=== PATIENT | female | born 1960 | race Caucasian/White ===

== ENCOUNTER 2020-04-17 08:00 | Outpatient (REF) | payer OTHER, SELFPAY ==
--- NOTE | ~2020-04-17 | MM_ITS ---
EXAMINATION: MM SCREENING DIGITAL BREAST TOMOSYNTHESIS, BILATERAL CLINICAL INFORMATION: Screening. Asymptomatic. History of left breast atypical hyperplasia. The lifetime risk of breast cancer based on the Tyrer-Cuzick Model is 29.5%. Additional annual screening with breast MRI may be of benefit in women with a Score of 20% or greater. COMPARISON: Mammography: November 24, 2018 and studies dating back to March 03, 2012 TECHNIQUE: Digital breast tomosynthesis is performed in both the craniocaudal and mediolateral oblique views along with computer-aided detection (CAD). Synthesized 2D images are generated from the tomosynthesis. FINDINGS: There are scattered areas of fibroglandular density (ACR BI-RADS breast composition Category b). There are no significant masses, abnormal calcifications, or other abnormalities. MM/MM tomosynthesis screening BI IMPRESSION: There are no significant changes from prior study. ASSESSMENT: BI-RADS 1: Negative RECOMMENDATION: Routine annual mammography screening. This patient's information was entered into a reminder system with a target due date for their next mammogram.
== END 2020-04-17 08:01 | disposition home or self-care (01) ==
LOC: HO.MAMMO 08:00
PROVIDERS: Visit Provider Internal Medicine
DX: Z12.31 Encounter for screening mammogram for malignant neoplasm of breast (principal)
CPT/HCPCS: 77063; 77067

== ENCOUNTER 2020-05-03 10:26 | Outpatient (REF) | payer OTHER, SELFPAY ==
[2020-05-03 12:08] LABS: Free T4 (Free Thyroxine) 1.26 ng/dL (0.71-1.85)
[2020-05-04 06:37] LABS: Triiodothyronine T3 Total 76 ng/dL (76-181)
== END 2020-05-03 10:27 | disposition home or self-care (01) ==
LOC: HO.LAB 10:26
PROVIDERS: PCP Internal Medicine; Visit Provider Internal Medicine Endocrinology, Diabetes & Metabolism
DX: E89.0 Postprocedural hypothyroidism (principal)
CPT/HCPCS: 36415; 84439; 84480

== ENCOUNTER 2020-06-28 07:30 | Outpatient (REF) | payer OTHER, SELFPAY ==
[2020-06-28 08:03] LABS: Hematocrit 40.8 % (37-47); Mean Corpuscular HGB Conc 31.9 g/dl (31.0-35.0); Mean Corpuscular Hemoglobin 30.8 pg (27.0-33.0); Mean Corpuscular Volume 96.7 fL (80-98); Mean Platelet Volume 8.8 fL (9.4-12.3); Platelet Count 294 X10*3/uL (160-400); Red Blood Count 4.22 X10*6/uL (4.20-5.50); Red Cell Distribution Width 12.7 % (11.0-16.0); White Blood Count 6.7 X10*3/uL (4.8-10.8)
[2020-06-28 08:27] LABS: Glucose Urine UA NEG (NEG); Leukocyte Esterase Urine 2+ (NEG); Nitrite Urine NEG (NEG); PH 5.5 (5.0-8.0); Specific Gravity - Urine 1.025 (1.005-1.025); Urine Blood TRACE (NEG); Urine Ketones NEG (NEG); Urine Protein NEG (NEG-TRACE)
[2020-06-28 08:32] LABS: Appearance Urine HAZY; Color Urine YELLOW
[2020-06-28 08:57] LABS: Squamous Epithelial Cell Urine 4+ /LPF
[2020-06-28 08:58] LABS: Bacteria Urine 2+ /LPF; Calcium Oxalate Crystals Urine TRACE /LPF; Renal Epithelial Cells Urine 1+ /LPF
[2020-06-28 09:19] LABS: Alanine Aminotransferase 15 U/L (0-31); Alkaline Phosphatase 77 U/L (39-117); Anion Gap 11 (12-20); Aspartate Amino Transferase 17 U/L (5-31); Bilirubin Total 0.5 mg/dL (0.0-1.0); Blood Urea Nitrogen 26 mg/dL (9-16); Calcium 8.7 mg/dL (8.4-10.2); Carbon Dioxide 29 mmol/L (22-29); Chloride 110 mmol/L (96-108); Cholesterol 228 mg/dL; Estimated Glomerular Filt Rate 60; Glucose Fasting 94 mg/dL (60-99); HDL Cholesterol 63 mg/dL; LDL Cholesterol Calculated 155 mg/dl; Potassium 4.5 mmol/L (3.3-5.1); Sodium 145 mmol/L (135-145); Total Protein 6.5 g/dL (6.5-8.0); Triglycerides 54 mg/dL
== END 2020-06-28 07:31 | disposition home or self-care (01) ==
LOC: HO.LAB 07:30
PROVIDERS: PCP Internal Medicine; Visit Provider Internal Medicine
DX: Z00.00 Encounter for general adult medical examination without abnormal findings (principal); E03.9 Hypothyroidism, unspecified
CPT/HCPCS: 36415; 80053; 80061; 81001; 85027

== ENCOUNTER 2020-07-23 14:30 | Outpatient (REF) | payer OTHER, SELFPAY ==
[2020-07-23 16:26] LABS: Glucose Urine UA NEG (NEG); Leukocyte Esterase Urine TRACE (NEG); Nitrite Urine NEG (NEG); Specific Gravity - Urine >= 1.030 (1.005-1.025); Urine Blood NEG (NEG); Urine Ketones NEG (NEG); Urine Protein NEG (NEG-TRACE)
[2020-07-23 16:27] LABS: Appearance Urine CLEAR; Color Urine YELLOW
[2020-07-23 16:33] LABS: Bacteria Urine 1+ /LPF; Calcium Oxalate Crystals Urine 1+ /LPF; RBC Urine 0 /HPF (0); Squamous Epithelial Cell Urine TRACE /LPF; WBC Urine 0-2 /HPF (0-4)
== END 2020-07-23 14:31 | disposition home or self-care (01) ==
LOC: HO.HMGCLDS 14:30
PROVIDERS: Visit Provider Internal Medicine
DX: Z00.00 Encounter for general adult medical examination without abnormal findings (principal); E03.9 Hypothyroidism, unspecified
CPT/HCPCS: 81001

== ENCOUNTER 2020-10-04 09:56 | Outpatient (REF) | payer OTHER, SELFPAY ==
[2020-10-04 10:48] LABS: Glucose Urine UA NEG (NEG); Leukocyte Esterase Urine TRACE (NEG); Nitrite Urine NEG (NEG); Specific Gravity - Urine 1.015 (1.005-1.025); Urine Blood 3+ (NEG); Urine Ketones NEG (NEG); Urine Protein NEG (NEG-TRACE)
[2020-10-04 10:49] LABS: Color Urine YELLOW
[2020-10-04 10:50] LABS: Appearance Urine HAZY
[2020-10-04 11:04] LABS: Alanine Aminotransferase 12 U/L (0-31); Albumin Level 4.5 g/dL (3.5-5.0); Alkaline Phosphatase 83 U/L (39-117); Anion Gap 14 (12-20); Aspartate Amino Transferase 19 U/L (5-31); Bilirubin Total 0.5 mg/dL (0.0-1.0); Blood Urea Nitrogen 28 mg/dL (9-16); Calcium 9.6 mg/dL (8.4-10.2); Carbon Dioxide 26 mmol/L (22-29); Chloride 101 mmol/L (96-108); Cholesterol 266 mg/dL; Estimated Glomerular Filt Rate 47; Glucose Fasting 91 mg/dL (60-99); HDL Cholesterol 64 mg/dL; LDL Cholesterol Calculated 185 mg/dl; Sodium 137 mmol/L (135-145); Total Protein 7.3 g/dL (6.5-8.0); Triglycerides 87 mg/dL
[2020-10-04 11:08] LABS: Mucus Urine TRACE /LPF; RBC Urine TNTC /HPF (0); Squamous Epithelial Cell Urine 1+ /LPF
== END 2020-10-04 09:57 | disposition home or self-care (01) ==
LOC: HO.LAB 09:56
PROVIDERS: PCP Internal Medicine; Visit Provider Internal Medicine
DX: E03.9 Hypothyroidism, unspecified (principal); E78.5 Hyperlipidemia, unspecified; I10 Essential (primary) hypertension
CPT/HCPCS: 36415; 80048; 80053; 80061; 81001

== ENCOUNTER 2020-10-28 16:51 | Outpatient (REF) | payer OTHER, SELFPAY | END 2020-10-28 16:52 | disposition home or self-care (01) | LOC: HO.LNP 16:51 | PROVIDERS: Visit Provider Internal Medicine | DX: Z20.822 Contact with and (suspected) exposure to COVID-19 (principal); J06.9 Acute upper respiratory infection, unspecified | CPT/HCPCS: U0003; U0005 ==

== ENCOUNTER → 2020-12-29 07:31 | Outpatient (BNVA) | payer OTHER, SELFPAY | PROVIDERS: PCP Internal Medicine; Visit Provider Nurse Practitioner Gerontology ==

== ENCOUNTER 2020-12-29 08:16 | Outpatient (REF) | payer OTHER, SELFPAY ==
[2020-12-29 11:19] LABS: Free T4 (Free Thyroxine) 1.51 ng/dL (0.71-1.85); Thyroid Stimulating Hormone 3.57 uIU/mL (0.32-4.0)
[2020-12-30 22:27] LABS: Triiodothyronine T3 Total 83 ng/dL (76-181)
== END 2020-12-29 08:17 | disposition home or self-care (01) ==
LOC: HO.10HDL 08:16
PROVIDERS: Visit Provider Nurse Practitioner Gerontology
DX: E03.9 Hypothyroidism, unspecified (principal)
CPT/HCPCS: 36415; 84439; 84443; 84480

== ENCOUNTER 2021-03-04 11:59 | Outpatient (REF) | payer OTHER, SELFPAY ==
[2021-03-04 13:01] LABS: Influenza A PCR NEGATIVE (Negative); Influenza B PCR NEGATIVE (Negative); Resp Syncy Virus RNA Qual PCR NEGATIVE (Negative); SARS COV2 PCR INHOUSE NEGATIVE (Negative)
== END 2021-03-04 12:00 | disposition home or self-care (01) ==
LOC: HO.LNP 11:59
PROVIDERS: Visit Provider Nurse Practitioner Family
DX: Z20.822 Contact with and (suspected) exposure to COVID-19 (principal); J01.00 Acute maxillary sinusitis, unspecified
CPT/HCPCS: 0241U

== ENCOUNTER 2021-06-15 10:59 | Outpatient (REF) | payer OTHER, SELFPAY ==
--- NOTE | ~2021-06-15 | XR_ITS ---
EXAMINATION: XR CHEST CLINICAL INFORMATION: Wheezing COMPARISON: 03/09/2019 TECHNIQUE: 2 views of the chest were obtained. FINDINGS: Hyperexpanded lungs. No consolidation, edema, or effusion. No pneumothorax. The cardiomediastinal silhouette is within normal limits. Mild degenerative changes of the spine. XR/XR chest 2V IMPRESSION: Hyperexpanded, clear lungs.
[2021-06-15 12:15] LABS: Hematocrit 43.3 % (37.0-47.0); Hemoglobin 14.2 g/dl (12.0-16.0); Mean Corpuscular HGB Conc 32.8 g/dl (31.0-35.0); Mean Corpuscular Hemoglobin 31.7 pg (27.0-33.0); Mean Corpuscular Volume 96.7 fL (80.0-98.0); Mean Platelet Volume 9.2 fL (9.4-12.3); Platelet Count 353 X10*3/uL (160-400); Red Blood Count 4.48 X10*6/uL (4.20-5.50); Red Cell Distribution Width 12.5 % (11.0-16.0); White Blood Count 8.8 X10*3/uL (4.8-10.8)
[2021-06-15 12:23] LABS: Alanine Aminotransferase 15 U/L (0-31); Albumin Level 4.5 g/dL (3.5-5.0); Alkaline Phosphatase 73 U/L (39-117); Anion Gap 12 (12-20); Aspartate Amino Transferase 17 U/L (5-31); Bilirubin Total 0.5 mg/dL (0.0-1.0); Blood Urea Nitrogen 25 mg/dL (9-16); Calcium 9.5 mg/dL (8.4-10.2); Carbon Dioxide 28 mmol/L (22-29); Chloride 102 mmol/L (96-108); Cholesterol 255 mg/dL; Estimated Glomerular Filt Rate 50; Glucose Fasting 94 mg/dL (60-99); HDL Cholesterol 71 mg/dL; LDL Cholesterol Calculated 172 mg/dl; Potassium 4.3 mmol/L (3.3-5.1); Sodium 138 mmol/L (135-145); Total Protein 7.3 g/dL (6.5-8.0); Triglycerides 63 mg/dL
== END 2021-06-15 11:00 | disposition home or self-care (01) ==
LOC: HO.HMGCX 10:59
PROVIDERS: Visit Provider Internal Medicine
DX: R06.2 Wheezing (principal); I10 Essential (primary) hypertension; E78.5 Hyperlipidemia, unspecified; F17.200 Nicotine dependence, unspecified, uncomplicated
CPT/HCPCS: 36415; 71046; 80053; 80061; 85027

== ENCOUNTER 2021-08-05 08:19 | Outpatient (REF) | payer OTHER, SELFPAY ==
--- NOTE | ~2021-08-05 | US_ITS ---
EXAMINATION: US ABDOMEN COMPLETE CLINICAL INFORMATION: Unspecified abdominal pain. COMPARISON: X-ray abdomen 07/20/2019. CT abdomen and pelvis 12/11/2017. TECHNIQUE: Real-time imaging of the abdominal viscera. FINDINGS: PANCREAS: Normal. ABDOMINAL AORTA: The proximal, mid, and distal segments are normal in caliber. INFERIOR VENA CAVA: Visualized portions are normal. LIVER: The liver is normal in size. The liver contour is normal. Parenchymal echogenicity is normal. No focal hepatic lesion. Images submitted show some possible intrahepatic ductal dilatation of uncertain etiology. GALLBLADDER: Gallstones are noted The gallbladder is physiologically distended. Multiple mobile gallstones are present. No evidence of gallbladder wall thickening or pericholecystic fluid. COMMON BILE DUCT: Normal in caliber measuring 0.6 cm in diameter. RIGHT KIDNEY: There is no hydronephrosis on the right. The cortex is increased in echogenicity equal to that of liver. Multiple echogenic foci most consistent with nonobstructing calculi are noted. Several areas of probable cystic change are seen. There is no convincing evidence for a solid lesion on the imaging submitted. No hydronephrosis. The kidney measures 9.1 cm in maximum dimension. LEFT KIDNEY: Again as on the contralateral side, multiple echogenic foci are seen most consistent with nonobstructing calculi. There is no convincing evidence for hydronephrosis. Several areas of cystic change are seen here. No evidence for a solid lesion on the imaging submitted. No hydronephrosis. The kidney measures 10.0 cm in maximum dimension. SPLEEN: Calcifications within the spleen. The spleen measures 7.8 cm in maximum dimension. FREE FLUID: None. US/US abdomen complete IMPRESSION: Findings suggest an element of intrahepatic ductal dilatation of uncertain etiology. There is cholelithiasis here. No convincing evidence for cholecystitis. Consider MR/MRCP to further evaluate. Numerous areas of nonobstructing calculi in the kidneys are noted bilaterally and some cystic change is seen. There is no hydronephrosis. No convincing evidence for a solid lesion. The cortex of the kidneys appears increased in echogenicity bilaterally. This may be consistent with an element of medical renal disease. Correlation recommended.
== END 2021-08-05 08:20 | disposition home or self-care (01) ==
LOC: HO.HMGCX 08:19
PROVIDERS: Visit Provider Internal Medicine
DX: R10.9 Unspecified abdominal pain (principal)
CPT/HCPCS: 76700

== ENCOUNTER 2021-09-17 09:17 | Outpatient (REF) | payer OTHER, SELFPAY ==
[2021-09-17 11:22] LABS: MANUAL DIFF FLAG NO
[2021-09-17 11:33] LABS: Basophils Percent Auto 0.5 % (0-2); Eosinophils Absolute Auto 0.3 X10*3/uL (0.0-0.4); Eosinophils Percent Auto 5.3 % (0-4); Hematocrit 38.9 % (37.0-47.0); Hemoglobin 12.9 g/dl (12.0-16.0); Imm Gran Abs Auto 0.01 X10*3/uL (0.00-0.03); Imm Gran Pct Auto 0.2 % (0.0-0.4); Lymphocytes Absolute Auto 1.4 X10*3/uL (1.2-4.9); Mean Corpuscular HGB Conc 33.2 g/dl (31.0-35.0); Mean Corpuscular Hemoglobin 31.4 pg (27.0-33.0); Mean Corpuscular Volume 94.6 fL (80.0-98.0); Mean Platelet Volume 9.3 fL (9.4-12.3); Monocytes Absolute Auto 0.6 X10*3/uL (0.1-1.2); Monocytes Percent Auto 10.9 % (2-11); Neutrophils Absolute Auto 3.5 x10*3/uL (2.0-8.3); Neutrophils Percent Auto 59.1 % (45-73); Platelet Count 332 X10*3/uL (160-400); Red Blood Count 4.11 X10*6/uL (4.20-5.50); Red Cell Distribution Width 12.8 % (11.0-16.0); White Blood Count 5.9 X10*3/uL (4.8-10.8)
[2021-09-17 12:08] LABS: Alanine Aminotransferase 28 U/L (0-31); Albumin Level 4.2 g/dL (3.5-5.0); Alkaline Phosphatase 98 U/L (39-117); Anion Gap 12 (12-20); Aspartate Amino Transferase 28 U/L (5-31); Bilirubin Total 0.6 mg/dL (0.0-1.0); Blood Urea Nitrogen 20 mg/dL (9-16); Calcium 9.2 mg/dL (8.4-10.2); Carbon Dioxide 26 mmol/L (22-29); Chloride 107 mmol/L (96-108); Cholesterol 150 mg/dL; Estimated Glomerular Filt Rate 54; Glucose Fasting 93 mg/dL (60-99); HDL Cholesterol 60 mg/dL; Iron 111 mcg/dL (30-160); LDL Cholesterol Calculated 78 mg/dl; Percent Iron Saturation 35 % (15-50); Sodium 141 mmol/L (135-145); Total Iron Binding Capacity 321 mcg/dL (228-428); Total Protein 6.7 g/dL (6.5-8.0); Triglycerides 60 mg/dL; Unsaturated Iron Binding 210 ug/dL
[2021-09-17 12:15] LABS: TSH reflex Free T4 2.31 uIU/mL (0.32-4.0)
== END 2021-09-17 09:18 | disposition home or self-care (01) ==
LOC: HO.HMGCLDS 09:17
PROVIDERS: PCP Internal Medicine; Visit Provider Internal Medicine
DX: E78.5 Hyperlipidemia, unspecified (principal); I10 Essential (primary) hypertension; I21.9 Acute myocardial infarction, unspecified
CPT/HCPCS: 36415; 80053; 80061; 83540; 84443; 85025

== ENCOUNTER 2021-09-25 07:43 | Outpatient (REF) | payer OTHER, SELFPAY ==
--- NOTE | 2021-09-25 13:10 | PFT_ITS ---
Forced vital capacity 94%, FEV1 of 53%, FEV1/FVC ratio is 44. MHI28-60 is 15% and MVV is 47%. Post bronchodilator therapy, there was no significant change. Total lung capacity 106% and residual volume 128%. Diffusion capacity 55%. CONCLUSION: Severe obstructive airway disorder. No response to bronchodilator therapy. Clinical correlation is recommended. MD LEONIDES Crow/MODL / [id number]
== END 2021-09-25 07:44 | disposition home or self-care (01) ==
LOC: HO.RESP 07:43
PROVIDERS: PCP Internal Medicine; Visit Provider Internal Medicine
DX: R06.2 Wheezing (principal)
CPT/HCPCS: 94060; 94727; 94729

== ENCOUNTER 2021-09-25 16:33 | Outpatient (REF) | payer OTHER, SELFPAY ==
--- NOTE | ~2021-09-25 | XR_ITS ---
EXAMINATION: XR SACRUM AND COCCYX CLINICAL INFORMATION: disorder of sacrum and coccyx COMPARISON: CT scan abdomen pelvis 10/30/2015 TECHNIQUE: 3 views FINDINGS: No fracture or bone destruction of the sacrum and coccyx. Degenerative change of both the right and left sacroiliac joints of subchondral osteosclerosis and vacuum changes of the sacroiliac joints. No bony ankylosis. There is a grade 1 anterolisthesis of L5 on S1 due to facet joint disease. No spondylolysis. XR/XR sacrum coccyx min 2V IMPRESSION: No acute abnormality. Degenerative change of sacroiliac joints. Grade 1 anterolisthesis of L5 on S1.
== END 2021-09-25 16:34 | disposition home or self-care (01) ==
LOC: HO.HMGCX 16:33
PROVIDERS: PCP Internal Medicine
DX: M53.3 Sacrococcygeal disorders, not elsewhere classified (principal)
CPT/HCPCS: 72220

== ENCOUNTER 2022-05-01 12:56 | Outpatient (REF) | payer OTHER, SELFPAY ==
--- NOTE | ~2022-05-01 | XR_ITS ---
EXAMINATION: XR SHOULDER, RIGHT CLINICAL INFORMATION: Reason for Exam S43.401A - Unspecified sprain of right shoulder joint, initial encounter COMPARISON: None TECHNIQUE: Three views of the shoulder. FINDINGS: No acute fracture or dislocation. Moderate degenerative changes of the shoulder with degenerative spurring of the acromion clavicular joint with loss of glenohumeral joint space with subchondral change.. Soft tissues are unremarkable. XR/XR shoulder RT min 2V IMPRESSION: * Moderate degenerative changes of the shoulder.
== END 2022-05-01 12:57 | disposition home or self-care (01) ==
LOC: HO.HMGCX 12:56
PROVIDERS: PCP Internal Medicine; Visit Provider Internal Medicine
DX: S43.401A Unspecified sprain of right shoulder joint, initial encounter (principal)
CPT/HCPCS: 73030

== ENCOUNTER 2022-09-07 09:15 | Outpatient (REF) | payer OTHER, SELFPAY ==
[2022-09-07 11:27] LABS: MANUAL DIFF FLAG NO
[2022-09-07 11:39] LABS: Basophils Percent Auto 0.5 % (0-2); Eosinophils Absolute Auto 0.4 X10*3/uL (0.0-0.4); Eosinophils Percent Auto 6.7 % (0-4); Hematocrit 39.6 % (37.0-47.0); Imm Gran Abs Auto 0.01 X10*3/uL (0.00-0.03); Imm Gran Pct Auto 0.2 % (0.0-0.4); Lymphocytes Absolute Auto 1.6 X10*3/uL (1.2-4.9); Lymphocytes Percent Auto 27.7 % (20-40); Mean Corpuscular HGB Conc 32.8 g/dl (31.0-35.0); Mean Corpuscular Hemoglobin 31.6 pg (27.0-33.0); Mean Corpuscular Volume 96.1 fL (80.0-98.0); Mean Platelet Volume 9.5 fL (9.4-12.3); Monocytes Absolute Auto 0.5 X10*3/uL (0.1-1.2); Monocytes Percent Auto 9.3 % (2-11); Neutrophils Absolute Auto 3.2 x10*3/uL (2.0-8.3); Neutrophils Percent Auto 55.6 % (45-73); Platelet Count 254 X10*3/uL (160-400); Red Blood Count 4.12 X10*6/uL (4.20-5.50); Red Cell Distribution Width 12.7 % (11.0-16.0); White Blood Count 5.8 X10*3/uL (4.8-10.8)
[2022-09-07 12:24] LABS: Alanine Aminotransferase 24 U/L (0-31); Albumin Level 3.9 g/dL (3.5-5.0); Alkaline Phosphatase 78 U/L (39-117); Anion Gap 14 (12-20); Aspartate Amino Transferase 29 U/L (5-31); Bilirubin Total 0.6 mg/dL (0.0-1.0); Blood Urea Nitrogen 27 mg/dL (9-16); Calcium 9.1 mg/dL (8.4-10.2); Carbon Dioxide 23 mmol/L (22-29); Chloride 111 mmol/L (96-108); Cholesterol 137 mg/dL; Estimated Glomerular Filt Rate > 60; Glucose Fasting 89 mg/dL (60-99); HDL Cholesterol 59 mg/dL; LDL Cholesterol Calculated 69 mg/dl; Potassium 3.6 mmol/L (3.3-5.1); Sodium 144 mmol/L (135-145); Total Protein 6.4 g/dL (6.5-8.0); Triglycerides 47 mg/dL
[2022-09-07 12:27] LABS: TSH reflex Free T4 2.43 uIU/mL (0.32-4.0); Vitamin D 25-OH Total 35.4 ng/mL (>30)
[2022-09-08 16:29] LABS: Calcium (PTHI) 8.7 mg/dL (8.6-10.4); PTHI 46 pg/mL (16-77)
== END 2022-09-07 09:16 | disposition home or self-care (01) ==
LOC: HO.HMGCLDS 09:15
PROVIDERS: PCP Internal Medicine; Visit Provider Internal Medicine
DX: Z00.00 Encounter for general adult medical examination without abnormal findings (principal); N20.0 Calculus of kidney; E78.5 Hyperlipidemia, unspecified; E55.9 Vitamin D deficiency, unspecified; I10 Essential (primary) hypertension
CPT/HCPCS: 36415; 80053; 80061; 82306; 83970; 84443; 85025

== ENCOUNTER 2022-11-03 09:00 | Outpatient (RCR) | payer OTHER, SELFPAY ==
--- NOTE | 2022-11-01 09:50 | MHC.PT.EP ---
[facility] [place] Office [place] Office [place] Office [address] [phone] F: [phone] F: [phone] F: [phone] F: [phone] Physical Therapy Plan of Care Date of Evaluation: Date of Surgery: Diagnosis: cervicalgia Assessment: 62 y/o LHD female referred to PT with cervicalgia resulting in pain with holding grandchild, reaching overhead, computer work, and sitting with poor posture. Examination shows decreased cervical rotation and shoulder flexion, decreased scapular strength, increased TTP upper traps, and impaired postural awareness. REcommend PT 2x/week for 4 weeks to address impairments, implement HEP, and optimize functional mobility. Frequency and Duration: The patient will be seen 2x/week for 4 weeks Short Term Goals: 3 weeks Compliant with HEP I with use of lumbar roll in sitting Residential Goals: 5 weeks I with HEP and self management of sx Pt will be able to hold grandchild > 30 min with pain < 3/10 Pt will be able to reach into overhead cabinets with pain < 3/10 Demonstrate B 4/5 scapular strength to facilitate lifting Treatment Plan: Modalities to reduce pain, spasms and effusion. Manual therapy to restore motion and function. Therapeutic exercise to improve strength and flexibility. Neuromuscular re-education for posture and balance. Therapeutic activities to return to functional activities of daily living. Electronically signed by: Tereza Tavera PT Please sign and return to therapist. Thank you for your referral.
--- NOTE | 2022-12-09 14:49 | MHC.PT.DC ---
[facility] [place] Office [place] Office [place] Office [address] [place] [phone] F: [phone] F: [phone] F: [phone] F: [phone] Physical Therapy Discharge Report Diagnosis: cervicalgia Date of Surgery: Date of Evaluation: 11/01/22 Date of Discharge: 12/09/22 Treatments to Date: 2 Cancellations to Date: 5 No Shows to Date: 1 Discharge Status: Recommend MD Follow-up Discharge Summary: Pt with poor attendance and at this time is d/c from PT. Electronically signed by: Tereza Tavera PT Please sign and return to therapist. Thank you for your referral.
== END 2022-12-09 14:50 | disposition home or self-care (01) ==
LOC: HO.PTCHIC 09:00
PROVIDERS: PCP Internal Medicine; Visit Provider Internal Medicine
DX: M54.2 Cervicalgia (principal)
CPT/HCPCS: 97110; 97140; 97162

== ENCOUNTER 2022-12-16 10:12 | Emergency (ER) | payer OTHER, SELFPAY ==
[2022-12-16 10:18] VITALS: BP 157/77; PULSE 72; RESP 16; TEMP 36.6; O2SAT 96; BMI 25.8
--- NOTE | 2022-12-16 10:24 | PC.NURSE ---
alert and oriented, respirations even and unlabored. seen recently at [facility] for abdominal pain/cramping. covid +, stating her discomfort has not gone away. has been feeling increasingly weak over past week, reporting cough since last tuesday
--- NOTE | 2022-12-16 10:48 | ED.GENADULT ---
HPI - General Adult General Chief complaint: Abdominal Pain Stated complaint: +COVID,NAUSEA,WEAK,REAL PER EMS Time Seen by Provider: 12/16/22 10:31 Source: patient Limitations: no limitations History of Present Illness HPI narrative: This is a 62 years old female patient presented to the emergency department complaining of nausea weakness malaise. She states she has been feeling this for about a day she went to [facility] on Tuesday she was diagnosed with COVID the end really stoma. Denies any vomiting any fever she does complaining of nausea Onset (ago): day(s) (8) Radiation: non-radiation Severity: mild Pain Consistency: constant Relieving factors: none Exacerbating factors: none Related Data Home Medications Medication Instructions Recorded Confirmed aspirin 81 mg tablet,delayed 81 mg PO DAILY 07/14/21 08/18/22 release Previous Rx's Medication Instructions Recorded cyclobenzaprine 10 mg tablet 10 mg PO BEDTIME #14 tabs 05/01/22 meloxicam 15 mg tablet 15 mg PO DAILY #14 tabs 05/01/22 Levoxyl 75 mcg tablet 75 mcg PO DAILY #90 tabs 08/18/22 (levothyroxine) atorvastatin 80 mg tablet 80 mg PO BEDTIME #90 tabs 08/18/22 metoprolol succinate 25 mg 25 mg PO DAILY #90 tabs 08/18/22 tablet,extended release 24 hr nicotine 21 mg/24 hr daily 1 patch transdermal DAILY #28 ea 08/18/22 transdermal patch (Nicoderm CQ) mometasone-formoterol HFA 100 2 puff inhalation BID #13 grams 10/12/22 mcg-5 mcg/actuation aerosol inhaler (Dulera) ondansetron HCl 4 mg tablet 4 mg PO Q8H PRN nausea and 12/16/22 vomiting 4 days #12 tabs Allergies Allergy/AdvReac Type Severity Reaction Status Date / Time No Known Allergies Allergy Verified 08/18/22 08:35 Review of Systems Constitutional: Constitutional: Reports no additional constitutional complaints Cardiovascular: Cardiovascular: Reports no additional cardiovascular complaints PMFSH Past Medical History Medical History Abdominal pain [place] (myocardial infarction) Tobacco dependence Wheezing Hyperlipemia HTN (hypertension) Annual physical exam Hypothyroid Hematuria Anxiety COPD (chronic obstructive pulmonary disease) Hyperthyroidism Surgical History Hx of appendectomy H/O tubal ligation H/O thyroidectomy Family History Family History Father No problems noted. Mother CVD (cardiovascular disease) Social History Social History Housing: House Alcohol intake: never Patient Tobacco Use Status: Former Tobacco user (1 year) Smoked in Last 30 Days: Yes e-Cigarette/Vaping Use: Never Used Use of substances other than those prescribed or required for medical reasons: No Advance Directives: No Advance Directives Information Provided: Yes Current occupational status: employed Cognitive needs: No Hearing needs: No Vision needs: Yes Physical Exam ED Vital Signs: Vital Signs - 24 hr 12/16/22 10:18 12/16/22 12:55 Temperature 97.9 F 98.1 F Pulse Rate 72 68 Respiratory Rate 16 16 Blood Pressure 157/77 H 127/78 Pulse Oximetry 96 99 Oxygen Delivery Method Room Air Room Air BMI result Body Mass Index 25.8 Const General: cooperative Nutritional Appearance: well nourished Orientation/consciousness: patient oriented x3 Limitations: no limitations HENMT Head: Yes normal to inspection General nose exam: Normal external nose present Face and sinus: Yes normal facial exam Neck Neck: Yes normal visual inspection Chest Chest palpation & inspection: normal inspection of the chest Resp Effort & Inspection: normal respiratory effort Auscultation: clear to auscultation bilaterally Cardio Rate: regular rate Rhythm: regular rhythm GI Inspection: Yes normal to inspection Palpation (GI): Soft to palpation, not firm and nontender Auscultation: normal bowel sounds Skin General skin exam: no rashes or lesions noted Lesions: no lesions Rashes: no rashes Neuro General: patient oriented x3 Cranial nerves: Yes CN's II-XII intact bilaterally Cognition (Neuro): normal cognition Motor exam (neuro): 5/5 motor strength present throughout Course Reevaluation(s) Reevaluation #1: feels better labs OK ,CXR no acute disease,will d/c home,she is oxygenating well Time: 12:26 Medications Administered Discontinued Medications Generic Name Dose Route Start Last Admin Trade Name Freq PRN Reason Stop Dose Admin Sodium Chloride 1,000 mls @ 999 mls/hr 12/16/22 10:45 12/16/22 10:58 Ns IVCONT 12/16/22 11:45 999 mls/hr .Q1H1M RAKEL Administration Ondansetron HCl 4 mg 12/16/22 10:48 12/16/22 10:57 Ondansetron Hcl 4 Mg/2 Ml Vial IVPUSH 12/16/22 10:49 4 mg ONCE ONE Administration Medical Decision Making Medical Decision Making [facility] Narrative: Patient presented with generalized weakness nausea malaise diagnosed recently with COVID the this symptoms may be related to that, will get anywhere labs IV fluids symptomatic treatment and reassess Differential Diagnosis Differential Diagnoses: The differential diagnosis associated with the presentation includes Pneumonia/dehydration Admission/Observation Consideration of admission/observation: Escalation of care including admission/observation considered Lab Data 12/16/22 10:55 12/16/22 10:55 Labs: Lab Results 12/16/22 Range/Units 10:55 WBC 9.8 (4.8-10.8) X10*3/uL RBC 4.61 (4.20-5.50) X10*6/uL Hgb 14.7 (12.0-16.0) g/dl Hct 42.7 (37.0-47.0) % MCV 92.6 (80.0-98.0) fL MCH 31.9 (27.0-33.0) pg MCHC 34.4 (31.0-35.0) g/dl RDW 12.4 (11.0-16.0) % Plt Count 344 D (160-400) X10*3/uL MPV 8.9 L (9.4-12.3) fL Immature Gran % (Auto) 0.3 (0.0-0.4) % Neut % (Auto) 76.8 H (45-73) % Lymph % (Auto) 14.6 L (20-40) % Mccormick % (Auto) 6.6 (2-11) % Eos % (Auto) 1.4 (0-4) % Baso % (Auto) 0.3 (0-2) % Lymph # (Auto) 1.4 (1.2-4.9) X10*3/uL Mccormick # (Auto) 0.7 (0.1-1.2) X10*3/uL Eos # (Auto) 0.1 (0.0-0.4) X10*3/uL Baso # (Auto) 0.0 (0.0-0.2) X10*3/uL Abs Immat Gran (auto) 0.03 (0.00-0.03) X10*3/uL Absolute Neuts (auto) 7.6 (2.0-8.3) x10*3/uL Absolute Nucleated RBC 0.000 (0.0-0.012) X10*3/uL Nucleated RBC % (auto) 0.0 (0.0-0.2) /100WBC Sodium 142 (135-145) mmol/L Potassium 4.0 (3.3-5.1) mmol/L Chloride 103 (96-108) mmol/L Carbon Dioxide 26 (22-29) mmol/L Anion Gap 17 (12-20) BUN 21 H (9-16) mg/dL Creatinine 0.95 (0.5-1.4) mg/dL Estim Creat Clear Calc 46.3 Estimated GFR 59 Random Glucose 88 (60-115) mg/dL Calcium 9.5 (8.4-10.2) mg/dL Total Bilirubin 0.4 (0.0-1.0) mg/dL AST 22 (5-31) U/L ALT 16 (0-31) U/L Alkaline Phosphatase 87 (39-117) U/L Troponin I High Sens 3.3 (<3.5-17.0) ng/L Total Protein 7.4 (6.5-8.0) g/dL Albumin 4.2 (3.5-5.0) g/dL Independent Interpretation I performed an independent interpretation of an: Plain X-Ray Interpretation: no pneumonia Radiology Impression Discussion of test interpretation with radiology: I have reviewed the radiologist's reading. Radiologist Impression: normal cxr Prescription Management I considered prescription management with: Other (zofran) Social Determinants COPD Discharge Plan Discharge Clinical Impression: Weakness, Nausea, COVID-19 Patient Disposition: Home, Self-Care Instructions: COVID-19 (Coronavirus Disease 2019) (ED) Additional Instructions: Follow-up with your primary care physician: Make an appointment ; return if you are worse Prescriptions: New ondansetron HCl 4 mg tablet 4 mg PO Q8H PRN (Reason: nausea and vomiting) 4 Days Qty: 12 0RF No Action Dulera 100-5 mcg/actuation HFA aerosol inhaler 2 puff inhalation BID Qty: 13 3RF aspirin 81 mg tablet,delayed release (DR/EC) 81 mg PO DAILY meloxicam 15 mg tablet 15 mg PO DAILY Qty: 14 0RF cyclobenzaprine 10 mg tablet 10 mg PO BEDTIME Qty: 14 0RF atorvastatin 80 mg tablet 80 mg PO BEDTIME Qty: 90 3RF levothyroxine [Levoxyl] 75 mcg tablet 75 mcg PO DAILY Qty: 90 3RF Rx Instructions: DIANA - no substitutions Brand name medically necessary metoprolol succinate 25 mg tablet extended release 24 hr 25 mg PO DAILY Qty: 90 3RF nicotine [Nicoderm CQ] 21 mg/24 hr patch 24 hour 1 patch transdermal DAILY Qty: 28 5RF Referrals: Sharda Stevenson MD [Primary Care Provider] - 2 days Interventions: ED Discharge Assessment Last Done: 12/16/22 13:10 Discharge Date/Time: 12/16/22 13:11
[2022-12-16 12:55] VITALS: BP 127/78; PULSE 68; RESP 16; TEMP 36.7; O2SAT 99
== END 2022-12-16 13:11 | disposition home or self-care (01) ==
PROVIDERS: Emergency Provider Emergency Medicine; PCP Internal Medicine
DX: U07.1 COVID-19 (principal); R11.0 Nausea; R53.1 Weakness; E78.5 Hyperlipidemia, unspecified; I10 Essential (primary) hypertension; I25.2 Old myocardial infarction; Z87.891 Personal history of nicotine dependence; Z79.899 Other long term (current) drug therapy; Z79.82 Long term (current) use of aspirin
CPT/HCPCS: 36415; 71045; 80053; 84484; 85025; 96374; 99284; J2405

== ENCOUNTER 2023-01-04 14:53 | Outpatient (AMB) | payer OTHER, SELFPAY ==
[2023-01-04 15:51] VITALS: BP 130/80; PULSE 79; TEMP 36.6; O2SAT 95; BMI 24.9
--- NOTE | 2023-01-04 15:51 | AM.OFFWIN_ITS ---
Intake Vital Signs 01/04/23 15:51 Height 4 ft 11 in Weight 123 lb 6 oz BMI 24.9 BP 130/80 Blood Pressure Location Lt brachial Position Sitting Pulse 79 Pulse Source Pulse Oximeter Temp 97.9 F Temp Source Temporal Artery Scan Pulse Oximetry (%) 95 Oxygen Delivery Method Room Air Intake Visit Reasons: EST/right side pain(lobby) Intake Note: pt is here for c/o right side pain for a few months Patient Tobacco Use Status: Former Tobacco user (1 year) Allergies No Known Allergies Allergy (Verified 01/04/23 16:11) Medication List - Last Reconciled 01/04/23 by Oneal Fung MD aspirin 81 mg PO DAILY atorvastatin 80 mg PO BEDTIME Levoxyl (levothyroxine) 75 mcg PO DAILY NS meloxicam 15 mg PO DAILY metoprolol succinate ER 50 mg PO DAILY mometasone-formoterol 100-5 mcg/actuation (Dulera) 2 puffs inhalation BID nicotine (Nicoderm CQ) 1 patch transdermal DAILY ondansetron HCl 4 mg PO Q8H PRN 4 days Do you need a note to return to daycare/school/sports/work: Yes HPI EST/right side pain(lobby) HPI Details 62-year-old female presents to [facility] for a sick visit. Patient is complaining of pain in the right lower back radiating to the front of the stomach. Symptoms are episodic and causes nausea. She has been diagnosed with kidney stones in the past. She was seen at the urologist who told her that it is a nonobstructing stone. Patient is wondering about other causes of her pain. Does not report any increase in frequency of urination, vomiting or diarrhea. [facility] Medical History Abdominal pain [place] (myocardial infarction) Tobacco dependence Wheezing Hyperlipemia HTN (hypertension) Annual physical exam Hypothyroid Hematuria Anxiety COPD (chronic obstructive pulmonary disease) Hyperthyroidism Surgical History Hx of appendectomy H/O tubal ligation H/O thyroidectomy Family History Father No problems noted. Mother CVD (cardiovascular disease) Social History Housing: House Alcohol intake: never Patient Tobacco Use Status: Former Tobacco user (1 year) e-Cigarette/Vaping Use: Never Used Current occupational status: employed Cognitive needs: No Hearing needs: No Vision needs: Yes Physical Exam Vital Signs: Last Vital Signs Temp 97.9 F 01/04/23 15:51 Pulse 79 01/04/23 15:51 BP 130/80 01/04/23 15:51 Pulse Ox 95 01/04/23 15:51 Oxygen Delivery Method Room Air 01/04/23 15:51 BMI result Body Mass Index 24.9 Const General: cooperative and healthy appearing Nutritional Appearance: well nourished Orientation/consciousness: patient oriented x3 Limitations: no limitations HEENT Head: Yes normal to inspection Eyes General: appearance normal, both eyes and all related structures Neck Neck: Yes normal visual inspection Chest Chest palpation & inspection: normal palpation of entire chest wall Resp Effort & Inspection: normal respiratory effort Back/Spine/Pelvis Other: No spinal tenderness. Neuro General: patient oriented x3 Results AMB Urinalysis, Automated UA Leukoctes 15 Domingo/uL Last Edit by Ozzie Price CMA on 01/04/23 16:23 UA Nitrite Negative Last Edit by Ozzie Price CMA on 01/04/23 16:23 UA Urobilinogen 0.2 mg/dL Last Edit by Ozzie Price CMA on 01/04/23 16 :23 UA Protein 30 mg/dL Last Edit by Ozzie Price CMA on 01/04/23 16:23 UA pH 6.0 Last Edit by Ozzie Price CMA on 01/04/23 16:23 UA Blood 200 Ciaran/uL Last Edit by Ozzie Price CMA on 01/04/23 16:23 UA Specific Empire 1.030 Last Edit by Ozzie Price CMA on 01/04/23 16:23 UA Ketone Positive Last Edit by Ozzie Price CMA on 01/04/23 16:23 UA Bilirubin 1 mg/dL Last Edit by Ozzie Price CMA on 01/04/23 16:23 UA Glucose 0 mg/dL Last Edit by Ozzie Price CMA on 01/04/23 16:23 Assessment & Plan Assessment & Plan (1) Low back pain: Code(s): M54.50 - Low back pain, unspecified Plan: Patient was advised rest. Note for work if necessary provided. If symptoms worsen to follow-up here. Urinalysis was positive for blood and leukocytes. Possibility of a kidney stone still exist. Meloxicam and Bactrim also called in. If symptoms not better to follow-up here. Orders: Orders AMB Urinalysis Automated Today Z13.9 - Encounter for screening, unspecified Medications: New sulfamethoxazole-trimethoprim 800-160 mg (Bactrim DS) 1 tab PO BID 14 tabs 0RF 7 days Refilled meloxicam 15 mg PO DAILY 14 tabs 0RF Coding Level of Care Code Est Pt Level 4 (67545) Diagnoses Low back pain M54.50
== END 2023-01-04 16:42 | disposition home or self-care (01) ==
PROVIDERS: PCP Internal Medicine; Visit Provider Internal Medicine
DX: M54.50 Low back pain, unspecified (principal)
CPT/HCPCS: 81003; 99214

== ENCOUNTER 2023-01-14 10:42 | Outpatient (AMB) | payer OTHER, SELFPAY ==
[2023-01-14 10:50] VITALS: BP 120/74; PULSE 75; O2SAT 99; BMI 24.2
--- NOTE | 2023-01-14 10:50 | MHC.PC.OV ---
Vital Signs 01/14/23 10:50 Height 4 ft 11 in Weight 120 lb BMI 24.2 BP 120/74 Blood Pressure Location Lt brachial Position Sitting Pulse 75 Pulse Source Pulse Oximeter Pulse Oximetry (%) 99 Oxygen Delivery Method Room Air Intake Visit Reasons: Abdomen Pains Intake Note: Pt is here today for a follow up visit. Pt states that she was in [facility] and she was also at [facility] [place], [place] for covid. Allergies No Known Allergies Allergy (Verified 01/14/23 10:54) Medication List - Last Reconciled 01/14/23 by Sharda Stevenson MD aspirin 81 mg PO DAILY atorvastatin 80 mg PO BEDTIME Levoxyl (levothyroxine) 75 mcg PO DAILY NS metoprolol succinate ER 50 mg PO DAILY mometasone-formoterol 100-5 mcg/actuation (Dulera) 2 puffs inhalation BID nicotine (Nicoderm CQ) 1 patch transdermal DAILY umeclidinium-vilanterol 62.5-25 mcg/actuation (Anoro Ellipta) 1 inh inhalation DAILY Tobacco use date assessed: 01/14/23 Dental Screening Dental Screen Date: 01/14/23 Did you have a dental visit in the last 12 months?: Yes Did you have a dental problem in the last 6 months where you did not have access to dental care?: No Was dental information given to patient?: Patient has dentist HPI Abdomen Pains HPI Details Pt c/o increased SOB, wheezing since started Dulera and needs to use Albuterol more often. Patient has been well controlled on Anoro which was changed to Dulera because of insurance requirement to try Dulera first. Hypertension hypothyroidism and hyperlipidemia are controlled on current medications. [facility] Medical History Abdominal pain CT (myocardial infarction) Tobacco dependence Wheezing Hyperlipemia HTN (hypertension) Annual physical exam Hypothyroid Hematuria Anxiety COPD (chronic obstructive pulmonary disease) Hyperthyroidism Surgical History Hx of appendectomy H/O tubal ligation H/O thyroidectomy Family History Father No problems noted. Mother CVD (cardiovascular disease) Social History Housing: House Alcohol intake: never Patient Tobacco Use Status: Former Tobacco user e-Cigarette/Vaping Use: Never Used Current occupational status: employed Cognitive needs: No Hearing needs: No Vision needs: Yes Questionnaire Thrive Questionnaire Date Thrive assessed: 06/15/21 AUDIT C Alcohol Use Questionnaire (AUDIT-C) 1. How often do you have a drink containing alcohol?: Monthly or less 2. How many drinks containing alcohol do you have on a typical day when you are drinking?: 1 or 2 3. How often do you have six or more drinks on one occasion?: Never Total Score: 1 GÓMEZ-7 AMB Questionnaire GÓMEZ-7 Date GÓMEZ - 7 assessed: 08/18/22 Source: Developed by Drs. Alen Prajapati, Shikha Gordon, Melquiades Rivers and colleagues, with an educational dhaval from [email or web address]. Review of Systems Const All systems reviewed & are unremarkable except as noted in HPI and below Eyes Reports no additional complaints ENT Reports no additional complaints Card Reports no additional complaints GI Reports no additional complaints Reports no additional complaints Physical exam (Primary Care) Vital Signs: Last Vital Signs Pulse 75 01/14/23 10:50 BP 120/74 01/14/23 10:50 Pulse Ox 99 01/14/23 10:50 Oxygen Delivery Method Room Air 01/14/23 10:50 BMI result Body Mass Index 24.2 Tobacco/Smoking Status: Tobacco use Status Tobacco use date assessed 01/14/23 01/14/23 10:57 Patient Tobacco Use Status Former Tobacco user 01/14/23 10:57 Tobacco use type 07/14/21 10:20 e-Cigarette/Vaping Use Never Used 01/14/23 10:53 Thrive Assessment: Date of Thrive Assessment Date Thrive assessed 06/15/21 01/14/23 10:53 Const General: no acute distress HENMT Head: Yes normal to inspection Ears: hearing grossly normal bilaterally Resp Effort & Inspection: normal respiratory effort Auscultation: clear to auscultation bilaterally Cardio Rhythm: regular rhythm Heart sounds: S1 normal heart sound present and S2 normal heart sound present GI Inspection: Yes normal to inspection Palpation (GI): Soft to palpation Assessment and Plan Assessment & Plan (1) COPD (chronic obstructive pulmonary disease): Code(s): J44.9 - Chronic obstructive pulmonary disease, unspecified Plan: Change from Dulera to Anoro and continue albuterol as needed (2) CT (myocardial infarction): Comment: STEMI 07/03 s/p 2 PARMINDER in [facility] Code(s): I21.9 - Acute myocardial infarction, unspecified Plan: Continue current medications follow-up with Cardiology (3) HTN (hypertension): Code(s): I10 - Essential (primary) hypertension Plan: Continue current medications (4) Hyperlipemia: Code(s): E78.5 - Hyperlipidemia, unspecified Plan: Continue statin (5) Hypothyroid: Comment: surgical for hyperthyroidism, follow-up with endo Code(s): E03.9 - Hypothyroidism, unspecified Plan: Continue levothyroxine, return for physical in 6 months with a fasting labs before (6) Vitamin D deficiency: Code(s): E55.9 - Vitamin D deficiency, unspecified Orders: Orders TSH reflex Free T4 6 Months E03.9 - Hypothyroidism, unspecified, E55.9 - Vitamin D deficiency, unspecified, E78.5 - Hyperlipidemia, unspecified, I10 - Essential (primary) hypertension, I21.9 - Acute myocardial infarction, unspecified, J44.9 - Chronic obstructive pulmonary disease, unspecified Vitamin D 25-OH Total 6 Months E03.9 - Hypothyroidism, unspecified, E55.9 - Vitamin D deficiency, unspecified, E78.5 - Hyperlipidemia, unspecified, I10 - Essential (primary) hypertension, I21.9 - Acute myocardial infarction, unspecified, J44.9 - Chronic obstructive pulmonary disease, unspecified Comprehensive [place]. Panel Fast 6 Months E03.9 - Hypothyroidism, unspecified, E55.9 - Vitamin D deficiency, unspecified, E78.5 - Hyperlipidemia, unspecified, I10 - Essential (primary) hypertension, I21.9 - Acute myocardial infarction, unspecified, J44.9 - Chronic obstructive pulmonary disease, unspecified Complete Blood Count Auto Diff 6 Months E03.9 - Hypothyroidism, unspecified, E55.9 - Vitamin D deficiency, unspecified, E78.5 - Hyperlipidemia, unspecified, I10 - Essential (primary) hypertension, I21.9 - Acute myocardial infarction, unspecified, J44.9 - Chronic obstructive pulmonary disease, unspecified Lipid Panel 6 Months E03.9 - Hypothyroidism, unspecified, E55.9 - Vitamin D deficiency, unspecified, E78.5 - Hyperlipidemia, unspecified, I10 - Essential (primary) hypertension, I21.9 - Acute myocardial infarction, unspecified, J44.9 - Chronic obstructive pulmonary disease, unspecified Referrals Cologuard Test Z12.11 - Encounter for screening for malignant neoplasm of colon, Z12.12 - Encounter for screening for malignant neoplasm of rectum Medications: New umeclidinium-vilanterol 62.5-25 mcg/actuation (Anoro Ellipta) 1 inh inhalation DAILY 180 ea 3RF albuterol sulfate 90 mcg/actuation 2 puffs inhalation Q6H PRN 8.5 grams 5RF shortness of breath or wheezing Refilled nicotine (Nicoderm CQ) 1 patch transdermal DAILY 28 ea 5RF Discontinued mometasone-formoterol 100-5 mcg/actuation (Dulera) Discontinued Reason: Doctor's Order 2 puffs inhalation BID 13 grams 3RF Coding Level of Care Code Est Pt Level 4 (12991) Diagnoses COPD (chronic obstructive pulmonary disease) J44.9 CT (myocardial infarction) I21.9 HTN (hypertension) I10 Hyperlipemia E78.5 Hypothyroid E03.9 Vitamin D deficiency E55.9
== END 2023-01-14 11:35 | disposition home or self-care (01) ==
PROVIDERS: PCP Internal Medicine; Visit Provider Internal Medicine
DX: J44.9 Chronic obstructive pulmonary disease, unspecified (principal); I25.2 Old myocardial infarction; I10 Essential (primary) hypertension; Z90.49 Acquired absence of other specified parts of digestive tract; E78.5 Hyperlipidemia, unspecified; E03.9 Hypothyroidism, unspecified; E55.9 Vitamin D deficiency, unspecified
CPT/HCPCS: 99214

== ENCOUNTER 2024-02-13 09:50 | Outpatient (REF) | payer MEDICARE, SELFPAY ==
[2024-02-13 13:19] LABS: MANUAL DIFF FLAG NO
[2024-02-13 13:31] LABS: Basophils Percent Auto 0.3 % (0-2); Eosinophils Absolute Auto 0.3 X10*3/uL (0.0-0.4); Eosinophils Percent Auto 4.3 % (0-4); Hematocrit 40.4 % (37.0-47.0); Hemoglobin 13.5 g/dl (12.0-16.0); Imm Gran Abs Auto 0.02 X10*3/uL (0.00-0.03); Imm Gran Pct Auto 0.3 % (0.0-0.4); Lymphocytes Absolute Auto 1.5 X10*3/uL (1.2-4.9); Lymphocytes Percent Auto 20.5 % (20-40); Mean Corpuscular HGB Conc 33.4 g/dl (31.0-35.0); Mean Corpuscular Hemoglobin 31.9 pg (27.0-33.0); Mean Corpuscular Volume 95.5 fL (80.0-98.0); Mean Platelet Volume 9.5 fL (9.4-12.3); Monocytes Absolute Auto 0.6 X10*3/uL (0.1-1.2); Monocytes Percent Auto 8.4 % (2-11); Neutrophils Absolute Auto 4.9 x10*3/uL (2.0-8.3); Neutrophils Percent Auto 66.2 % (45-73); Platelet Count 301 X10*3/uL (160-400); Red Blood Count 4.23 X10*6/uL (4.20-5.50); Red Cell Distribution Width 12.9 % (11.0-16.0); White Blood Count 7.5 X10*3/uL (4.8-10.8)
[2024-02-13 14:20] LABS: Alanine Aminotransferase 33 U/L (0-31); Albumin Level 3.9 g/dL (3.5-5.0); Alkaline Phosphatase 88 U/L (39-117); Anion Gap 9 (12-20); Aspartate Amino Transferase 36 U/L (5-31); Bilirubin Total 0.5 mg/dL (0.0-1.0); Blood Urea Nitrogen 18 mg/dL (9-16); Calcium 8.5 mg/dL (8.4-10.2); Carbon Dioxide 25 mmol/L (22-29); Chloride 110 mmol/L (96-108); Cholesterol 131 mg/dL (<200); Estimated Glomerular Filt Rate > 60; Glucose Fasting 102 mg/dL (60-99); HDL Cholesterol 60 mg/dL (>40); LDL Cholesterol Calculated 63 mg/dL (<100); Sodium 140 mmol/L (135-145); Total Protein 6.5 g/dL (6.5-8.0); Triglycerides 44 mg/dL (<150)
[2024-02-13 14:38] LABS: TSH reflex Free T4 2.23 uIU/mL (0.32-4.0); Vitamin D 25-OH Total 73.2 ng/mL (>30)
== END 2024-02-13 09:51 | disposition home or self-care (01) ==
LOC: HO.HMGCLDS 09:50
PROVIDERS: PCP Internal Medicine; Visit Provider Internal Medicine
DX: Z00.00 Encounter for general adult medical examination without abnormal findings (principal); I10 Essential (primary) hypertension; E03.9 Hypothyroidism, unspecified; E78.5 Hyperlipidemia, unspecified; Z79.899 Other long term (current) drug therapy
CPT/HCPCS: 36415; 80053; 80061; 82306; 84443; 85025; 96127

== ENCOUNTER 2024-02-13 09:50 | Outpatient (AMB) | payer MEDICARE, SELFPAY ==
[2024-02-13 09:52] VITALS: BP 128/86; PULSE 81; O2SAT 96; BMI 26.7
--- NOTE | 2024-02-13 09:52 | AM.OFFVISMDC ---
Intake Vital Signs 02/13/24 09:52 Height 4 ft 11 in Weight 132 lb BMI 26.7 BP 128/86 Blood Pressure Location Lt brachial Position Sitting Pulse 81 Pulse Source Pulse Oximeter Pulse Oximetry (%) 96 Oxygen Delivery Method Room Air Intake Visit Reasons: AWV Allergies No Known Allergies Allergy (Verified 02/13/24 09:57) Medication List - Last Reconciled 02/13/24 by Sharda Stevenson MD albuterol sulfate 90 mcg/actuation 2 puffs inhalation Q6H PRN aspirin 81 mg PO DAILY atorvastatin 80 mg PO BEDTIME Levoxyl (levothyroxine) 75 mcg PO DAILY NS metoprolol succinate ER 50 mg PO DAILY nicotine (Nicoderm CQ) 1 patch transdermal DAILY umeclidinium-vilanterol 62.5-25 mcg/actuation (Anoro Ellipta) 1 inh inhalation DAILY HPI AWV HPI Details Initiated the conversation about Advanced Directives. Advanced Directives help? patients prepare for current and future decisions about their medical treatment? and place of care. Discussed with patient that it is a process where a patients? current condition and prognosis are reviewed, their wishes for information? regarding their illness are elicited, and likely medical dilemmas are presented? and options discussed. The form can be amended as needed, reviewed yearly and? make changes as needed IPPE/AWV ? year old presents? for her ? Annual? Wellness Visit, initial visit.? Medical / Social History Reviewed? Past Medical History ?Yes? . ? [place]? of Care / Care Team list updated ?Yes . ? Surgical/Hospitalization? History ?Yes . ? Current Medications? (including OTC and supplements) ?Yes . ? Family History ?Yes? . ? Tobacco? Control form ?Yes . ? AUDIT-C (Alcohol use) form? ?Yes . ? Illicit drug use in Social? History ?Yes . ? Current diagnosis of? depression? ?No ? Appropriate PHQ2/PHQ9? completed ?Yes . ? Data entered by ?Medical? Home Health Specialist and reviewed by provider ? Fall Risk ? Fall? History? Have you had any falls with? injury in the past year? ?No . ? Have you had two or more? falls in the past year? ?No . ? Fall Risk Assessment: ?No? falls in the past year . ? HRA filled out by? the patient, reviewed by Provider and scanned. ? IPPE/AWV ? Balance? [place]? ?Yes . ? Tandem? walk ?Yes . ? Walk and? Turn ?Yes . ? Rise from? sit to stand ?Yes . ?Vision? Corrective? lens ?Yes ? Vision? screen ? Up-to-date, has an appointment [] for vision? screening and glaucoma screening ?Hearing? Whisper? test ?pass .? Initiated the conversation about Advanced Directives. Advanced Directives help? patients prepare for current and future decisions about their medical treatment? and place of care. Discussed with patient that it is a process where a patients? current condition and prognosis are reviewed, their wishes for information? regarding their illness are elicited, and likely medical dilemmas are presented? and options discussed. The form can be amended as needed, reviewed yearly and? make changes as needed Written? Plan?Completed. See Patient? Documents. [facility] Medical History Abdominal pain MD (myocardial infarction) Tobacco dependence Wheezing Hyperlipemia HTN (hypertension) Annual physical exam Hypothyroid Hematuria Anxiety COPD (chronic obstructive pulmonary disease) Hyperthyroidism Surgical History Hx of appendectomy H/O tubal ligation H/O thyroidectomy Family History Father No problems noted. Mother CVD (cardiovascular disease) Social History Housing: House Alcohol intake: never Patient Tobacco Use Status: Former Tobacco user e-Cigarette/Vaping Use: Never Used Current occupational status: employed Cognitive needs: No Hearing needs: No Vision needs: Yes Questionnaire Medicare Wellness Checkup [age] What gender do you identify with?: female During the past 4 weeks, how much have you been bothered by emotional problems such as feeling anxious, depressed, irritable, sad or downhearted, and blue?: not at all During the past 4 weeks, has your physical & emotional health limited your social activities with family, friends, neighbors, or groups?: not at all During the past 4 weeks, how much bodily pain have you generally had?: mild pain During the past 4 weeks, was someone available to help you if you needed & wanted help?: yes, as much as I wanted During the past 4 weeks, what was the hardest physical activity you could do for at least 2 minutes?: heavy Can you get to places out of walking distance without help? (For eg., can you travel alone on buses, taxis or drive your car?): Yes Can you go shopping for groceries or clothes without someone's help?: Yes Can you prepare your own meals?: Yes Can you do your housework without help?: Yes Because of any health problems, do you need the help of another person with your personal care needs such as eating, bathing, dressing or getting around the house?: No Can you handle your own money without help?: Yes During the past 4 weeks, how would you rate your health in general?: good During the past 4 weeks how have things been going for you?: pretty well Are you having difficulties driving your car?: no Do you always fasten your seat belt when you are in a car?: yes, sometimes During past 4 weeks, have you been bothered by the following: never: Falling or dizzy when standing up, Sexual problems?, Trouble eating well?, Teeth or denture problems? and Problems using the telephone? and sometimes: Tiredness or fatigue? Have you fallen 2 or more times in the past year?: No Are you afraid of falling?: No Are you a smoker?: yes, and I might quit During the past 4 weeks, how many drinks of wine, beer, or other alcoholic beverages did you have?: 1 drink or less per week Do you exercise for about 20 minutes 3 or more times a week?: yes, some of the time Have you been given information to help with the following?: no: Hazards in your house that might hurt you? and no: Keeping track of your medications? How often do you have trouble taking medicines the way you have been told to take them?: I always take medicine as prescribed How confident are you that you can control & manage most of your health problems?: very confident What is your race?: White Mini Mental State Exam (MMSE) Orientation What is the (year) (season) (date) (day) (month)?: year, season, date, day and month Where are we (state) (county) (town or city) (hospital) (floor)?: state, county, town or city, hospital/clinic and floor Registration Name of 3 unrelated objects clearly and slowly, then ask patient to repeat all 3 of them. (1st repeat determines score. Make sure they can repeat all three): object 1, object 2 and object 3 Attention & Calculation (CHOOSE ONE) Spell WORLD backwards (DLROW): 5 letters Recall Ask patient to repeat the 3 items from question #3.: object 1, object 2 and object 3 Language Show patient a wristwatch & ask what it is. Repeat for pencil.: watch and pencil Ask the patient to repeat the phrase 'No ifs, ands, or buts' after you.: correct Ask the patient to 'take a piece of paper with their right hand' 'fold paper in half' 'place paper on floor': take paper in right hand, fold paper in half and place paper on floor Print the sentence 'CLOSE YOUR EYES' on a piece. If patient actually closes eyes then score.: followed written direction Give patient a blank piece of paper & ask to write a sentence. Score if it contains a noun & verb.: sentence contains subject and verb Ask patient to copy figure of intersecting pentagons exactly. Score if all 10 angles & 2 intersects are included.: all 10 angles present & 2 are intersected Score Score: 30 PHQ-9 Over the last 2 weeks, how often have you been bothered by any of the following problems? 1. Little interest or pleasure in doing things: not at all 2. Feeling down, depressed, or hopeless: not at all 3. Trouble falling or staying asleep, or sleeping too much: several days 4. Feeling tired or having little energy: several days 5. Poor appetite or overeating: not at all 6. Feeling bad about yourself - or that you are a failure or have let yourself or your family down: not at all 7. Trouble concentrating on things, such as reading the newspaper or watching television: not at all 8. Moving or speaking so slowly that other people could have noticed. Or the opposite - being so fidgety or restless that you have been moving around a lot more than usual: not at all 9. Thoughts that you would be better off or of hurting yourself in some way: not at all Total score: 2 Depression Screening Interpretation: Negative Depression Screening Done: Yes 78013 - PHQ-9 Billing: Yes Source: Developed by Drs. Alen Prajapati, Shikha Gordon, Melquiades Rivers and colleagues, with an educational dhaval from [email or web address]. Review of Systems Const All systems reviewed & are unremarkable except as noted in HPI and below Reports no additional complaints Eyes Reports no additional complaints ENT Reports no additional complaints Card Reports no additional complaints Resp Reports no additional complaints GI Reports no additional complaints Reports no additional complaints Musc Reports no additional complaints Physical Exam Vital Signs: Last Vital Signs Pulse 81 02/13/24 09:52 BP 128/86 02/13/24 09:52 Pulse Ox 96 02/13/24 09:52 Oxygen Delivery Method Room Air 02/13/24 09:52 BMI result Body Mass Index 26.7 Const General: no acute distress HEENT Head: Yes normal to inspection Ears: hearing grossly normal bilaterally Neck Neck: Yes no lymphadenopathy and Yes supple Resp Effort & Inspection: normal respiratory effort Auscultation: clear to auscultation bilaterally Cardio Rhythm: regular rhythm Heart sounds: S1 normal heart sound present and S2 normal heart sound present GI Inspection: Yes normal to inspection Palpation (GI): Soft to palpation Percussion: Yes normal to percussion Auscultation: normal bowel sounds Extrem General: Yes no clubbing, cyanosis or edema Assessment & Plan Assessment & Plan (1) Annual physical exam: Code(s): Z00.00 - Encounter for general adult medical examination without abnormal findings Plan: Well-balanced diet regular physical activity discussed with the patient she will schedule mammogram. Patient declined colonoscopy Cologuard is ordered (2) HTN (hypertension): Code(s): I10 - Essential (primary) hypertension Plan: Continue metoprolol (3) Hypothyroid: Comment: surgical for hyperthyroidism, follow-up with endo Code(s): E03.9 - Hypothyroidism, unspecified Plan: Continue levothyroxine (4) Hyperlipemia: Code(s): E78.5 - Hyperlipidemia, unspecified Plan: Continue statin Orders: Orders Comprehensive [place]. Panel Fast Today E03.9 - Hypothyroidism, unspecified, E78.5 - Hyperlipidemia, unspecified, I10 - Essential (primary) hypertension, Z00.00 - Encounter for general adult medical examination without abnormal findings Lipid Panel Today E03.9 - Hypothyroidism, unspecified, E78.5 - Hyperlipidemia, unspecified, I10 - Essential (primary) hypertension, Z00.00 - Encounter for general adult medical examination without abnormal findings Vitamin D 25-OH Total Today E03.9 - Hypothyroidism, unspecified, E78.5 - Hyperlipidemia, unspecified, I10 - Essential (primary) hypertension, Z00.00 - Encounter for general adult medical examination without abnormal findings Complete Blood Count Auto Diff Today E03.9 - Hypothyroidism, unspecified, E78.5 - Hyperlipidemia, unspecified, I10 - Essential (primary) hypertension, Z00.00 - Encounter for general adult medical examination without abnormal findings TSH reflex Free T4 Today E03.9 - Hypothyroidism, unspecified, E78.5 - Hyperlipidemia, unspecified, I10 - Essential (primary) hypertension, Z00.00 - Encounter for general adult medical examination without abnormal findings Referrals Cologuard Test Z12.11 - Encounter for screening for malignant neoplasm of colon, Z12.12 - Encounter for screening for malignant neoplasm of rectum Medications: New metoprolol succinate ER 50 mg PO DAILY 90 tabs 3RF Refilled Levoxyl (levothyroxine) DIANA - no substitutions Brand name medically necessary 75 mcg PO DAILY 90 tabs 3RF NS atorvastatin 80 mg PO BEDTIME 90 tabs 3RF nicotine (Nicoderm CQ) 1 patch transdermal DAILY 28 ea 5RF umeclidinium-vilanterol 62.5-25 mcg/actuation (Anoro Ellipta) 1 inh inhalation DAILY 180 ea 3RF Quality Reporting (2019) Depression/Bipolar (159/160/161/177) PHQ-9: Total score: 2 Coding Level of Care Code Medicare Subsequent (G0439) Diagnoses Annual physical exam Z00.00 HTN (hypertension) I10 Hypothyroid E03.9 Hyperlipemia E78.5 CPT Codes Advance Care Planning - Time spent: 1-15 minutes, on File ([id number]) Additional Codes PHQ-9 - 46333 - PHQ-9 Billing: Yes ([id number]) Advance Care Planning Advance Care Planning discussion: Exists, not on file Forms completed: Health Care Proxy Time spent: 1-15 minutes, on File Did not discuss due to Cultural/Spiritual beliefs: Yes
== END 2024-02-13 10:36 | disposition home or self-care (01) ==
PROVIDERS: PCP Internal Medicine; Visit Provider Internal Medicine
DX: Z00.00 Encounter for general adult medical examination without abnormal findings (principal); I10 Essential (primary) hypertension; E03.9 Hypothyroidism, unspecified; E78.5 Hyperlipidemia, unspecified

== ENCOUNTER 2024-05-25 15:58 | Outpatient (REF) | payer MEDICARE, SELFPAY ==
--- OUTSIDE RECORDS SUMMARY | 2024-05-26 11:30 | XMS_ITS | Clinical Summary ---
Author Organization [facility] ity Address [address] [place] [address] Care Team Providers Care Cash Grain Grower Name Role Phone Unavailable Primary Care Provider [...]
[2024-05-26 12:13] LABS: Influenza A PCR NEGATIVE (Negative); Influenza B PCR NEGATIVE (Negative); Resp Syncy Virus RNA Qual PCR NEGATIVE (Negative); SARS COV2 PCR INHOUSE NEGATIVE (Negative)
== END 2024-05-25 15:59 | disposition home or self-care (01) ==
LOC: HO.LNP 15:58
PROVIDERS: PCP Internal Medicine; Visit Provider Physician Assistant Medical
DX: J44.1 Chronic obstructive pulmonary disease with (acute) exacerbation (principal); J06.9 Acute upper respiratory infection, unspecified
CPT/HCPCS: 0241U; 94640; 99212

== ENCOUNTER 2024-05-25 15:58 | Outpatient (AMB) | payer MEDICARE, SELFPAY ==
[2024-05-25 16:10] VITALS: BP 130/84; PULSE 71; TEMP 36.8; O2SAT 97; BMI 26.7
--- NOTE | 2024-05-25 16:10 | MHC.OFFWIV ---
Intake Vital Signs 05/25/24 16:10 Height 4 ft 11 in Weight 132 lb 2 oz BMI 26.7 BP 130/84 Blood Pressure Location Lt brachial Position Sitting Pulse 71 Pulse Source Pulse Oximeter Temp 98.2 F Temp Source Oral Pulse Oximetry (%) 97 Oxygen Delivery Method Room Air Intake Visit Reasons: EP stuffy nose, coughing, difficulty breathing Intake Note: Patient here for congestion, cough and SOB that started Tuesday. Patient Tobacco Use Status: Former Tobacco user Allergies No Known Allergies Allergy (Verified 05/25/24 16:11) Do you need a note to return to daycare/school/sports/work: No HPI HPI Comments History of Present Illness Details This is a 64-year-old female who presented to the walk-in clinic today complaining of cough, chest congestion, and shortness of breath x3 days. Patient states she started to develop nasal congestion and rhinorrhea about 3 days ago but states that the congestion then traveled into her lower respiratory tract. She now has some chest congestion with a dry cough as well as dyspnea on exertion and wheezing. Patient denies any fevers or chills. She reports positive sick contact with her great granddaughter who is sick with a respiratory illness. [facility] Medical History Abdominal pain [place] (myocardial infarction) Tobacco dependence Wheezing Hyperlipemia HTN (hypertension) Annual physical exam Hypothyroid Hematuria Anxiety COPD (chronic obstructive pulmonary disease) Hyperthyroidism Surgical History Hx of appendectomy H/O tubal ligation H/O thyroidectomy Family History Father No problems noted. Mother CVD (cardiovascular disease) Social History Housing: House Alcohol intake: never Patient Tobacco Use Status: Former Tobacco user e-Cigarette/Vaping Use: Never Used Current occupational status: employed Cognitive needs: No Hearing needs: No Vision needs: Yes Review of Systems Const All systems reviewed & are unremarkable except as noted in HPI and below Reports no additional complaints Eyes Reports no additional complaints ENT Reports no additional complaints Card Reports no additional complaints Resp Reports no additional complaints GI Reports no additional complaints Reports no additional complaints Musc Reports no additional complaints Skin/Breast Reports system reviewed and no additional complaints, except as documented Neuro Reports no additional complaints Psych Reports no additional complaints Endo Reports no additional complaints Marucs/Lymph Reports no additional complaints Aller/Immun Reports no additional complaints Physical Exam Vital Signs: Last Vital Signs Temp 98.2 F 05/25/24 16:10 Pulse 71 05/25/24 16:10 BP 130/84 05/25/24 16:10 Pulse Ox 97 05/25/24 16:10 Oxygen Delivery Method Room Air 05/25/24 16:10 BMI result Body Mass Index 26.7 Const Other: Vital signs reviewed. Constitutional: Non-toxic appearing. No acute distress. Well-developed and well-nourished. HEENT: Normocephalic and atraumatic. Tympanic membranes without erythema, edema, or bulging bilaterally. External auditory canals without erythema or edema bilaterally. Moist mucous membranes. No pharyngeal erythema or exudates. Skin: Warm and dry. No rashes or lesions noted. Neck: Full and painless range of motion. No cervical lymphadenopathy. Cardio: Regular rate and rhythm. No murmurs, gallops, or rubs. No lower extremity edema. No JVD. Pulmonary: No respiratory distress. No accessory muscle usage. She has scattered expiratory wheezing and coarse rhonchorous breath sounds throughout without crackles/rales. Gastrointestinal: Soft, nontender, and nondistended in all 4 quadrants. Musculoskeletal: Normal range of motion in joints throughout the body. No deformity or other signs of injury. Neuro: Alert and oriented x4. Cranial nerves 2-12 grossly intact. No focal deficits appreciated. Psych: Normal mood and affect. Office Procedures Nebulizer Treatment Nebulizer Treatment [id number] RX initial, or Nebulizer Subsequent Treatment Office Meds ipratropium 0.5 mg-albuterol 3 mg (2.5 mg base)/3 mL nebulization soln Performing Provider: NEY Orellana Performing Location: [facility] Administered by: Alayna Penaloza RN on 05/25/24 16:29 Dose Route Admin Location Dispensed Lot Number Expiration Date NDC Marble Installer Supervisor 3 mL inhalation 3 mL [id number] 05/11/25 96012-279-07 AHP Assessment & Plan Assessment & Plan (1) Acute exacerbation of chronic obstructive pulmonary disease (COPD): Code(s): J44.1 - Chronic obstructive pulmonary disease with (acute) exacerbation Plan This is a 64-year-old female with past medical history significant for chronic obstructive pulmonary disease who presented to the walk-in clinic complaining of dry cough, chest congestion, and shortness of breath x3 days. On physical examination, she has scattered expiratory wheezing and coarse rhonchorous breath sounds. Patient is maintaining her oxygen saturations on room air and she is in no acute respiratory distress. Patient very likely has an acute COPD exacerbation in the setting of viral versus bacterial lower respiratory tract infection. Patient was given a DuoNeb in the office with significant improvement in her symptoms and lung sounds. She was given a prescription for PO prednisone 40 mg daily x5 days and PO azithromycin 500 mg today followed by 250 mg daily x4 days. I recommended symptomatic management such as [id number] guaifenesin for mucociliary clearance as well as humidification at night time. Patient was advised to follow-up here or proceed to the emergency room if she were to develop worsening shortness of breath, fever/chills, or sputum production/purulence. Patient verbalized her understanding and she is in agreement with the plan. Orders: Orders AMB Nebulizer Treatment Today J44.1 - Chronic obstructive pulmonary disease with (acute) exacerbation SARS-CoV2/FLU/RSV Today J06.9 - Acute upper respiratory infection, unspecified Medications: New prednisone 40 mg (2 x 20 mg) PO DAILY 10 tabs 0RF azithromycin For 250 mg dose pack: take 500 mg today (day 1), then 250 mg for 4 days (days 2-5) PO 6 tabs 0RF Coding Level of Care Code Est Pt Level 3 (66118) Diagnoses Acute exacerbation of chronic obstructive pulmonary disease (COPD) J44.1 CPT Codes Nebulizer Treatment - Nebulizer Treatment, initial or subsequent: [id number] RX initial, or Nebulizer Subsequent Treatment ([id number])
--- OUTSIDE RECORDS SUMMARY | 2024-05-25 16:47 | XMS_ITS | Clinical Summary ---
Author Organization [facility] [address] ity Address [address] [place] [address] Care Team Providers Care Bilingual Trainer Name Role Phone Unavailable Primary Care Provider Unavailabl e Social History Tobacco Use Types Packs/Day Years Used Date Smoking Tobacco: Never Assessed Comments Unknown Sex and Gender Information Value Date Recorded Sex Assigned at Not on file Legal Sex Female 5:34 PM EST Gender Identity Not on file Sexual Orientation Not on file Plan of Treatment Health Maintenance Due Date Last Done Comments Breast Cancer Screening 1960 DTaP,Tdap,and Td Vaccines (1 - Tdap) 1977 Pneumococcal Vaccine: 50+ Ye ars (1 of 1 - PCV) 2008 Zoster Vaccines (1 of 2) 2008 Colorectal Cancer Screening: Colonoscopy 04/12/2023 Depression Screening 04/12/2023 Hepatitis C Screening 04/12/2023 Osteoporosis Screening (Bone Density Screening) 04/12/2023 Social Influencers of Health Screening 04/12/2023 Falls Risk Assessment 2023 COVID-19 Vaccine ( - 2023-2 5 season) 2023 Influenza Vaccine (#1) 2023 RSV Immunization Patients 60 + Years Old (1 - 1-dose 75+ series) 2033 HIB Vaccines Aged Out No longer eligi ble based on patient's age to complete this topic HPV Vaccines Aged Out No longer eligi ble based on patient's age to complete this topic Hepatitis A Vaccines Aged Out No long er eligible based on patient's age to complete this topic Hepatitis B Vaccines Aged Out No long er eligible based on patient's age to complete this topic IPV Vaccines Aged Out No longer eligi ble based on patient's age to complete this topic MMR Vaccines Aged Out No longer eligi ble based on patient's age to complete this topic Meningococcal ACWY Vaccine Aged Out N o longer eligible based on patient's age to complete this topic Meningococcal B Vacine Aged Out No lo nger eligible based on patient's age to complete this topic RSV Immunization Patients Un kerri 20 months Aged Out No longer eligible b ased on patient's age to complete this topic Varicella Vaccines Aged Out No longer eligible based on patient's age to complete this topic
== END 2024-05-25 16:47 | disposition home or self-care (01) ==
PROVIDERS: PCP Internal Medicine; Visit Provider Physician Assistant Medical
DX: J44.1 Chronic obstructive pulmonary disease with (acute) exacerbation (principal)

== ENCOUNTER 2024-06-28 09:14 | Outpatient (AMB) | payer MEDICARE, SELFPAY ==
--- NOTE | 2024-06-28 09:51 | AM.OFFWIN_ITS ---
Intake Vital Signs 06/28/24 09:52 Weight 132 lb BP 120/88 Blood Pressure Location Rt brachial Position Sitting Pulse 78 Pulse Source Pulse Oximeter Temp 98.2 F Temp Source Oral Pulse Oximetry (%) 95 Oxygen Delivery Method Room Air Intake Visit Reasons: EP Cold symptoms Intake Note: Patient here for cough that has been present since tuesday and was put on a z-luis eduardo and prednisone which have not really helped. Patient Tobacco Use Status: Former Tobacco user Allergies No Known Allergies Allergy (Verified 06/28/24 09:53) Do you need a note to return to daycare/school/sports/work: No HPI HPI Comments History of Present Illness Details History - The patient is a 64-year-old female wi th a past med hx of COPD, HTN, thyroid dysfunction and HLD presenting with persistent cough and congestion. - She reports ongoing wheezing and diffi culty expectorating mucus after a presumed upper respiratory infection, initially treated with prednisone and azithromycin (Z-Luis Eduardo) 4 days ago at the down the street but with little improvement in respiration. - She experiences shortness of breath up on exertion at work. - She uses a nebulizer with albuterol ev terri six hours. - The illness began Tuesday after exposur e from her great-granddaughter. - History essential hypertension requiri ng careful selection of additional medications. - Her symptoms persist despite prior ann atment and suggestive of need for further evaluation and potential additional therapy. - Did not have viral testing done at ot er Urgent Care. Physical Exam General: Cooperative, healthy appearing, comfortable and no acute distress Orientation/consciousness: Patient oriented x3 Limitations: No limitations Head: Normal to inspection Ears: Hearing grossly normal bilaterally, external ears normal and TM's normal bilaterally Nose: Normal external nose present, Normal nares present and No nasal discharge present Face and sinus: Normal facial exam and Yes sinuses nontender Mouth: Normal oral and palatal mucosa present and moist mucous membranes Throat: Yes tonsils normal, Yes uvula midline. Posterior oropharynx erythema Eyes: Appearance normal, both eyes and all related structures Neck: Normal visual inspection Respiratory: wheezing and rhonchi with expiration. Normal respiratory effort, able to speak in complete sentences, Actively coughing, no respiratory distress, not tachypneic, no tripod positioning and no use of accessory muscles Cardiovascular: Regular rate and rhythm. Normal S1 and S2 Skin: No rashes or lesions noted Neuro: Patient oriented x3 Extremities: Normal to inspection and Yes no clubbing, cyanosis or edema PFSH Medical History Abdominal pain [place] (myocardial infarction) Tobacco dependence Wheezing Hyperlipemia HTN (hypertension) Annual physical exam Hypothyroid Hematuria Anxiety COPD (chronic obstructive pulmonary disease) Hyperthyroidism Surgical History Hx of appendectomy H/O tubal ligation H/O thyroidectomy Family History Father No problems noted. Mother CVD (cardiovascular disease) Social History Housing: House Alcohol intake: never Patient Tobacco Use Status: Former Tobacco user e-Cigarette/Vaping Use: Never Used Current occupational status: employed Cognitive needs: No Hearing needs: No Vision needs: Yes Review of Systems Const All systems reviewed & are unremarkable except as noted in HPI and below Physical Exam Vital Signs: Last Vital Signs Temp 98.2 F 06/28/24 09:52 Pulse 78 06/28/24 09:52 BP 120/88 06/28/24 09:52 Pulse Ox 95 06/28/24 09:52 Oxygen Delivery Method Room Air 06/28/24 09:52 Assessment & Plan Assessment & Plan (1) Lower respiratory infection (e.g., bronchitis, pneumonia, pneumonitis, pulmonitis): Code(s): J22 - Unspecified acute lower respiratory infection Plan: O2 sat 95% on RA, pt well appearing and PE remarkable for wheezing and rhonchi with expiration. Will get CXR, sent viral testing for Covid, RSV and influenza. The plan includes the continuation of the prednisone treatment with an additional methylprednisolone taper to assist with respiratory function following completion of azithromycin. She should utilize an albuterol inhaler alongside her nebulizer to alleviate dyspnea during activity. Given her hypertension and COPD, Coricidin is suggested as a safe decongestant, alongside increased fluids and a hypertonic saline nasal spray for symptomatic relief. Further coordination with a pharmacist is important to ensure safe medication choices. A work note will be provided, and she will be contacted with test results for follow-up. Patient was informed and verbally consented to the use of an ambient scribe for clinic note documentation during this visit Orders: Orders SARS-CoV2/FLU/RSV Today R09.89 - Other specified symptoms and signs involving the circulatory and respiratory systems XR chest 2V Today R05.9 - Cough, unspecified Medications: New methylprednisolone PO PER PKG DIR for 6 days 21 ea 0RF Coding Level of Care Code Est Pt Level 4 (88001) Diagnoses Lower respiratory infection (e.g., bronchitis, pneumonia, pneumonitis, pulmonitis) J22
[2024-06-28 09:52] VITALS: BP 120/88; PULSE 78; TEMP 36.8; O2SAT 95
--- OUTSIDE RECORDS SUMMARY | 2024-06-28 10:17 | XMS_ITS | Clinical Summary ---
Author Organization [facility] ity Address [address] [place] [address] Care Team Providers Care Power System Dispatcher Name Role Phone Unavailable Primary Care Provider [...] - 2023-2 5 season) 2023 Influenza Vaccine (Season Ended) 2024 RSV Immunization Adult Patie nts (1 - 1-dose 75+ series) 2033 HIB [...] age to complete this topic Meningococcal B Vaccine Aged Out No l onger eligible based on patient's age to complete this topic RSV Immunization Patients Un kerri 20 months Aged Out No longer eligible b ased on patient's age to complete this topic Varicella Vaccines Aged Out No longer eligible based on patient's age to complete this topic
== END 2024-06-28 11:16 | disposition home or self-care (01) ==
PROVIDERS: PCP Internal Medicine; Visit Provider Physician Assistant
DX: J22 Unspecified acute lower respiratory infection (principal)

== ENCOUNTER 2024-06-28 09:14 | Outpatient (REF) | payer MEDICARE, SELFPAY ==
--- NOTE | ~2024-06-28 | XR_ITS ---
EXAMINATION: XR CHEST 2 VIEWS HISTORY: R05.9 - Cough, unspecified COMPARISON: Comparison is made with the prior examination dated 12/16/2022. FINDINGS: PA and lateral views of the chest are submitted. The lungs remain hyperinflated, consistent with COPD. There is are calcified granulomas at the left lung apex and at the right lung base, unchanged since 03/09/2019. There is linear subsegmental atelectasis versus scarring at the left lung base. There is no pleural effusion, pneumothorax, or pulmonary vascular congestion. The heart is normal in size. There is degenerative disc disease of the spine. XR/XR chest 2V IMPRESSION: COPD. No acute cardiopulmonary abnormality. Electronically signed by: Alen Severino MD 06/28/2024 11:25 AM EDT
--- OUTSIDE RECORDS SUMMARY | 2024-06-28 12:28 | XMS_ITS | Clinical Summary ---
Author Organization [facility] ity Address [address] [place] [address] Care Team Providers Care Production Broaching Machine Operator Name Role Phone Unavailable Primary Care Provider [...]
[2024-06-28 14:51] LABS: Influenza A PCR NEGATIVE (Negative); Influenza B PCR NEGATIVE (Negative); Resp Syncy Virus RNA Qual PCR NEGATIVE (Negative); SARS COV2 PCR INHOUSE NEGATIVE (Negative)
== END 2024-06-28 09:15 | disposition home or self-care (01) ==
LOC: HO.LAB 09:14
PROVIDERS: PCP Internal Medicine; Visit Provider Physician Assistant
DX: J22 Unspecified acute lower respiratory infection (principal); R09.89 Other specified symptoms and signs involving the circulatory and respiratory systems; R05.9 Cough, unspecified
CPT/HCPCS: 0241U; 71046; 99212

== ENCOUNTER → 2024-06-28 10:46 | Outpatient (BNV) | payer MEDICARE, SELFPAY | PROVIDERS: PCP Internal Medicine; Visit Provider Radiology Diagnostic Radiology | DX: R05.9 Cough, unspecified (principal) | CPT/HCPCS: 71046 ==

== ENCOUNTER 2024-09-06 16:07 | Outpatient (AMB) | payer MEDICARE, SELFPAY ==
[2024-09-06 16:08] VITALS: BP 138/72; PULSE 82; TEMP 36.6; O2SAT 97; BMI 27.3
--- NOTE | 2024-09-06 16:08 | AM.OFFWIN_ITS ---
Intake Vital Signs 09/06/24 16:08 Height 4 ft 11 in Weight 135 lb BMI 27.3 BP 138/72 Blood Pressure Location Lt brachial Position Sitting Pulse 82 Pulse Source Pulse Oximeter Temp 98 F Temp Source Oral Pulse Oximetry (%) 97 Oxygen Delivery Method Room Air Intake Visit Reasons: EP Cold symptoms Intake Note: pt reports cold like symptoms x2 days with a productive cough. C/o sore throat, itchy ears and sinus pressure yesterday only. denies fatigue and weakness. pt reports currently taking Coricidin chest & cingestion OTC. Patient Tobacco Use Status: Former Tobacco user Allergies No Known Allergies Allergy (Verified 09/06/24 16:11) Do you need a note to return to daycare/school/sports/work: No HPI HPI Comments History of Present Illness Details 64 y/o Female patient who presents to [facility] walk [facility] clinic with c/o Cough, Wheezing, Chest tightness, sore-throat and SOB for 2 days now. She lives with her Grandkids who are always sick with respiratory infections. [facility] Medical History (Updated 09/06/24 @ 16:36 by Marlyn Haynes NP) Wheezing on auscultation Cough Abdominal pain PR (myocardial infarction) Tobacco dependence Wheezing Hyperlipemia HTN (hypertension) Annual physical exam Hypothyroid Hematuria Anxiety COPD (chronic obstructive pulmonary disease) Hyperthyroidism Surgical History Hx of appendectomy H/O tubal ligation H/O thyroidectomy Family History Father No problems noted. Mother CVD (cardiovascular disease) Social History Housing: House Alcohol intake: never Patient Tobacco Use Status: Former Tobacco user e-Cigarette/Vaping Use: Never Used Current occupational status: employed Cognitive needs: No Hearing needs: No Vision needs: Yes Review of Systems Const All systems reviewed & are unremarkable except as noted in HPI and below Physical Exam Vital Signs: Last Vital Signs Temp 98 F 09/06/24 16:08 Pulse 82 09/06/24 16:08 BP 138/72 09/06/24 16:08 Pulse Ox 97 09/06/24 16:08 Oxygen Delivery Method Room Air 09/06/24 16:08 BMI result Body Mass Index 27.3 Const General: no acute distress Nutritional Appearance: well nourished Orientation/consciousness: patient oriented x3 Resp Effort & Inspection: normal respiratory effort Auscultation: crackles bilateral, no rales, rhonchi and wheezes scattered wheezes Cardio Heart sounds: S1 normal heart sound present and S2 normal heart sound present Neuro General: patient oriented x3 Assessment & Plan Assessment & Plan (1) Cough: Code(s): R05.9 - Cough, unspecified Qualifiers: Cough type: subacute Qualified Code(s): R05.2 - Subacute cough Plan: Ordered Prednisone, and Z-pack Lungs with wheezing\, crackles and rhonchi - will treat as pneumonia. Advised to RTC Tuesday if no improvement - will chest Xray then. C/o with Neb at home and Rescue inhaler PRN. (2) Wheezing on auscultation: Code(s): R06.2 - Wheezing Plan: Ordered Prednisone, and Z-pack Lungs with wheezing\, crackles and rhonchi - will treat as pneumonia. Advised to RTC Tuesday if no improvement - will chest Xray then. C/o with Neb at home and Rescue inhaler PRN. Medications: New albuterol sulfate 90 mcg/actuation 2 puffs inhalation Q4-6H PRN 6.7 grams 0RF shortness of breath or wheezing R05.2 - Subacute cough, R06.2 - Wheezing azithromycin 500 mg PO DAILY 3 tabs 0RF 3 days R05.2 - Subacute cough, R06.2 - Wheezing prednisone 20 mg PO DAILY 10 tabs 0RF R06.2 - Wheezing Changed From ipratropium-albuterol 0.5 mg-3 mg(2.5 mg base)/3 mL 3 mL inhalation Q6H PRN 180 mL 4RF wheezing R05.2 - Subacute cough, R06.2 - Wheezing To ipratropium-albuterol 0.5 mg-3 mg(2.5 mg base)/3 mL 3 mL inhalation Q4-6H PRN 180 mL 1RF wheezing R05.2 - Subacute cough, R06.2 - Wheezing Discontinued albuterol sulfate 90 mcg/actuation Discontinued Reason: Duplicate 2 puffs inhalation Q6H PRN 8.5 grams 5RF shortness of breath or wheezing Coding Level of Care Code Est Pt Level 4 (85635) Diagnoses Subacute cough R05.2 Cough type: subacute Wheezing on auscultation R06.2 Time Spent (min) 20
--- OUTSIDE RECORDS SUMMARY | 2024-09-06 19:41 | XMS_ITS | Clinical Summary ---
Author Organization [facility] Address [address] [place] [address] Phone Care Team Providers Care Medical Record Consultant Name Role Phone Physician, No Pcp Primary Care Provider Unavaila ble Allergies No known active allergies Medications aspirin 81 mg EC tablet Take 1 tablet (81 mg total) by mouth 1 (one) time each day. 4 Active Anoro Ellipta 62.5-25 mcg/actuation inhaler Inhale 1 puff by mouth 1 (one) time each day. Active LevoxyL 75 mcg tablet Take 1 tablet (75 mcg total) by mouth 1 (one) time each day. Active ipratropium-al buteroL (DUONEB) 0.5-2.5 mg/3 mL nebulizer solution Take 3 mL by nebulization 3 (three) times a day. 5 Active metoprolol succinate (TOPROL-XL) 50 mg 24 hr tablet Take 1 tablet (50 mg total) by mouth 1 (one) time each day. Active cefdinir (OMNICEF) 300 mg capsule Take 1 capsule (300 mg total) by mouth 2 (two) times a day for 3 days. 6 each 5 08/14/19 25 Active Problems Problem Noted Date Diagnosed Date Chronic obstructive pulmonar y disease (CMS/HCC V24, CMS/HCC V28) 08/08/2024 Hyperlipidemia 08/08/2024 Hypertension 08/08/2024 Hypothyroid 08/08/2024 Hydronephrosis with urinary obstruction due to ureteral calculus 08/08/2024 Encounters Date Type Department Care Team Description 08/10/2024 11:51 AM EDT Anesthesia Event [facility] OR [address] [place] [phone] Mohsen Perez MD Elliott, Barbara J, CRNA 08/10/2024 11:30 AM EDT - 08/10/2024 1:00 PM EDT Surgery [facility] OR [address] [place] [phone] Roshan Neville MD CYSTOSCOPY, URETEROSCOPY, RETROGRADE PYELOGRAM, LASER LITHOTRIPSY, BILATERAL STENTS [[id number] (CPT )] 08/08/2024 6:48 PM EDT - 08/10/2024 3:54 PM EDT Emergency [facility] [address] [place] [phone] Zachary Dunn MD Jones, Christopher, MD Kela, Kashyap Devendrabhai, MD Renal colic on right side (Primary Dx); Right ureteral stone Discharge Disposition: Home or Self Care from Last 3 Months Surgical History Surgery Date Site/Laterality Comments CORONARY STENT PLACEMENT Medical History Medical History Date Comments COPD (chronic obstructive pulmonary disease) ([facility] V24, [facility] V28) Coronary artery disease Hypertension Disease of thyroid gland HLD (hyperlipidemia) Tobacco abuse Myocardial infarction ([facility] V24, [facility] V28) Social History Tobacco Use Types Packs/Day Years Used Date Smoking Tobacco: Some Days Cigarettes Tobacco Cessation:Ready to Q uit: Not Asked; Counseling Given: Not Answered Alcohol Use Standard Drinks/Week Comments Not Currently 0 (1 standard drink = 0.6 oz pur e alcohol) Interpersonal Safety Answer Date Record ed Physical Abuse 08/09/2024 Verbal Abuse 08/09/2024 Comments Unknown Sex and Gender Information Value Date Recorded Sex Assigned at Female 08/08/2024 7:21 PM EDT Legal Sex Female 5:34 PM EST Gender Identity Female 08/08/2024 7:21 PM EDT Sexual Orientation Straight 08/08/2024 7: 21 PM EDT Obstetrics History Last Filed Vital Signs Vital Sign Reading Time Taken Comments Blood Pressure 149/72 08/10/2024 2:23 PM EDT Pulse 91 08/10/2024 2:23 PM EDT Temperature 36.3 C (97.3 F) 08/10/2024 2:23 PM EDT Respiratory Rate 16 08/10/2024 2:23 PM EDT Oxygen Saturation 93% 08/10/2024 2:23 PM EDT Inhaled Oxygen Concentration - - Weight 59.9 kg (132 lb) 08/08/2024 6:40 PM EDT Height 150 cm (4' 11.06 ) 08/08/2024 6:40 PM EDT Body Mass Index 26.61 08/08/2024 6:40 PM EDT Plan of Treatment Health Maintenance Due Date Last Done Comments Breast Cancer Screening 1960 DTaP,Tdap,and Td Vaccines (1 - Tdap) 1977 Zoster Vaccines (1 of 2) 2008 Pneumococcal Vaccine: 50+ Years (2 of 2 - PCV) 08/19/2013 08/19/2012 RSV Immunization Adult Patients (1 - Risk 60-74 years 1-dose series) 2018 Cholesterol Screening (Lipid Panel) 04/12/2023 Colorectal Cancer Screening: Colonoscopy 04/12/2023 Depression Screening 04/12/2023 Hepatitis C Screening 04/12/2023 Medicare Annual Wellness Visit 04/12/2023 Osteoporosis Screening (Bone Density Screening) 04/12/2023 Social Influencers of Health Screening 04/12/2023 COVID-19 Vaccine (3 - 2023-2 5 season) 2023 08/31/2020, 08/06/2020 Influenza Vaccine (Season Ended) 2024 01/06/2023, 12/27/2020, 02/09/2020 Hypertension/CHF/CAD Annual BMP Blood Test 08/09/2025 08/09/2024, 08/08/2024 Falls Risk Assessment 08/10/2025 08/10/2024 HIB Vaccines Aged Out No longer eligi [...] to complete this topic RSV Immunization Patients Under 20 months Aged Out No longer eligible b ased on patient's age to complete this topic Varicella Vaccines Aged Out No longer eligible based on patient's age to complete this topic Medical Devices Implanted Type Area Ladle Pourer Device Identifier Shelf Expiration Date Model / Serial / Lot Stent Uret [id number] Contr Percuflex Hydroplus - Sna - [id number] Implanted:Qty: 1 on 08/10/2024 by Roshan Neville MD at [facility] Stents Right: Ureter [employer]Y [id number] 04/03/2027 [id number] 60 / NA / [id number] Stent Uret [id number] Contr Percuflex Hydroplus - Sn/A - [id number] Implanted:Qty: 1 on 08/10/2024 by Roshan Neville MD at [facility] Stents Left: Ureter [employer] [id number] 04/16/2027 [id number] 60 / N/A / [id number] Procedures Procedure Name Priority Date/Time Associated Diagnosis Comments XR UROGRAM RETROGRADE Routine 08/10/2024 12:38 PM EDT STONE ANALYSIS STAT 08/10/2024 12:33 PM EDT Right ureteral stone TH AN LMA(NO CHARGE) Routine 08/10/2024 11:58 AM EDT AL CYSTO W URETEROSCOPY/PYELOSC OPY W LITHOTRIPSY INCL INDWELLING URTRL STNT 08/10/2024 11:48 AM EDT Kidney stones Calculus of left kidney Calculus of right kidney Case Notes C-ARM, HOLMIUM Special Needs R/S VIA PHONE W/KIMMIE OK'D BY DI SANCHEZ 08/09CHANGE OF PROCEDURE PER KIMMIE SANCHEZ 08/09 CBC WITH AUTO DIFFERENTIAL Routine 08/09/2024 5:14 AM EDT CBC AND DIFFERENTIAL Routine 08/09/2024 5:14 AM EDT BASIC METABOLIC PANEL Routine 08/09/2024 5:14 AM EDT NICOLE URINE CULTURE TUBE STAT 08/08/2024 11:07 PM EDT URINALYSIS WITH REFLEX MICROSCOPIC AND CULTURE STAT 08/08/2024 11:07 PM EDT URINALYSIS WITH REFLEX MICROSCOPIC AND CULTURE STAT 08/08/2024 11:07 PM EDT CULTURE URINE STAT 08/08/2024 11:[address] ABDOMEN PELVIS W CONTRAST STAT 08/08/2024 9:03 PM EDT CBC WITH AUTO DIFFERENTIAL STAT 08/08/2024 6:53 PM EDT COMPREHENSIVE METABOLIC PANEL STAT 08/08/2024 6:53 PM EDT CBC AND DIFFERENTIAL STAT 08/08/2024 6:53 PM EDT from Last 3 Months Results * XR Urogram Retrograde (08/10/2024 12:38 PM EDT) Anatomical Region Laterality Modality Body Radio Fluoroscop y 08/13/2024 7:54 AM EDT Narrative 08/13/2024 7:55 AM EDT Fluoroscopic spot radiographs obtained during a bilateral endourologic procedure are submitted. No radiologist consultation was requested or provided during this procedure and there is no radiologist professional charge. This report is generated for documentation purposes only. The dose-area product for this procedure was 0.9053 Gy*cm2. PQRI CPT II G9500 -------- FINAL REPORT -------- Dictated By: Gil Saavedra Dictated Date: 08/13/2024 07:54 ET Assigned Physician: Gil Saavedra Reviewed and Electronically Signed By: Gil Saavedra Signed Date: 08/13/2024 07:55 ET Workstation ID: [id number] Transcribed By: Self Edit Transcribed Date: 08/13/2024 07:54 ET Procedure Note Gil Saavedra MD - 08/13/2024 Fluoroscopic spot radiographs obtained during a bilateral endourologicprocedure are submitted. No radiologist consultation was requested orprovided during this procedure and there is no radiologist professionalcharge. This report is generated for documentation purposes only. The dose-area product for this procedure was 0.9053 Gy*cm2. PQRI CPT II G9500 -------- FINAL REPORT -------- Dictated By: Gil Saavedra Dictated Date: 08/13/2024 07:54 ET Assigned Physician: Gil Saavedra Reviewed and Electronically Signed By: Gil Saavedra Signed Date: 08/13/2024 07:55 ET Workstation ID: [id number] Transcribed By: Self Edit Transcribed Date: 08/13/2024 07:54 ET Trent Harris MD IM FLUOROSCOPY PROCEDURES Final Result * Stone analysis (08/10/2024 12:33 PM EDT) Component(s) See below 08/14/2024 5:30 PM EDT [facility] Comment: 10% Calcium oxalate monohydrate (Whewellite) 50% Calcium oxalate dihydrate (Weddellite) 40% Calcium hydrogen phosphate dihydrate (Brushite) Stone Weight 0.0053 g 08/14/2024 5:30 PM EDT [facility] Comment: This test was developed and its performance characteristics determined by [facility] in a manner consistent with CLIA requirements. This test has not been cleared or approved by the U.S. Food and Drug Administration. Test performed at [facility], [address] , [place] [address] Alma Patel MD, PhD - [employer] Machine Operator Helper Calculus Structure of right ureter / Unknown 08/10/2024 12:33 PM EDT 08/10/2024 12:58 PM EDT us Roshan Neville MD LAB BODY FLUIDS AND STOOLS ORDER NESTOR Final Result [place] [address] [place] [address] * TH AN LMA(NO CHARGE) (08/10/2024 11:58 AM EDT) Narrative Jannie Craig CRNA - 08/10/2024 11:58 AM EDT Jannie Craig CRNA 08/10/2024 11:58 AM General Information and Staff Patient location during procedure: OR Anesthesiologist: Mohsen Perez MD Resident/SYSTEMS OPERATOR: Jannie Craig CRNA Performed: resident/SYSTEMS OPERATOR/CAA Performed by: Jannie Craig CRNA Authorized by: Mohsen Perez MD Intubation Airway not difficult Urgency: elective Final Airway Details Number of attempts at approach: 1 Ventilation between attempts: none Number of other approaches attempted: 0 LMA Size: 4 LMA Type: Unique LMA Seal Pressure: Final airway type: LMA Indications and Patient Condition Indications for airway management: anesthesia Spontaneous Ventilation: absent Sedation level: Yes Preoxygenated: yes Soft Tissue Damage: No Dentition Unchanged: Yes Patient position: neutral MILS maintained throughout Mask difficulty assessment: 0 - not attempted us Mohsen Perez MD ANESTHESIA ORDERABLES Final R esult * (ABNORMAL) CBC auto differential (08/09/2024 5:14 AM EDT) Only the most recent of2 resultswithin the time period is included. WBC 11.5(H) 4.8 - 10.8 K/mcL LAB HEMETOLOGY METHOD 08/09/2024 6:37 AM EDT [facility] RBC 3.50(L) 3.80 - 4.80 M/[facility] LAB HEMETOLOGY METHOD 08/09/2024 6:37 AM EDT [facility] Hemoglobin 11.4(L) 11.5 - 16.0 g/dL LAB HEMETOLOGY METHOD 08/09/2024 6:37 AM EDT [facility] Hematocrit 34.6(L) 35.0 - 47.0 % LAB HEMETOLOGY METHOD 08/09/2024 6:37 AM EDT [facility] MCV 97.7 79.0 - 98.0 FL LAB HEMETOLOGY METHOD 08/09/2024 6:37 AM [facility] MCH 32.2(H) 27.0 - 32.0 pcg LAB HEMETOLOGY METHOD 08/09/2024 6:37 AM [facility] MCHC 32.9 32.0 - 37.0 g/dL LAB HEMETOLOGY METHOD 08/09/2024 6:37 AM [facility] RDW 13.1 11.0 - 15.0 % LAB HEMETOLOGY METHOD 08/09/2024 6:37 AM [facility] Platelets 228 130 - 400 K/mcL LAB HEMETOLOGY METHOD 08/09/2024 6:37 AM [facility] MPV 9.5 7.0 - 11.0 FL LAB HEMETOLOGY METHOD 08/09/2024 6:37 AM [facility] NRBC 0.0 <1.0 % LAB HEMETOLOGY METHOD 08/09/2024 6:37 AM [facility] NRBC Absolute 0.00 <0.10 K/mcL LAB HEMETOLOGY METHOD 08/09/2024 6:37 AM [facility] Neutrophils Relative 84.3 % LAB HEMETOLOGY METHOD 08/09/2024 6:37 AM [facility] Lymphocytes Relative 9.6 % LAB HEMETOLOGY METHOD 08/09/2024 6:37 AM [facility] Monocytes Relative 5.4 % LAB HEMETOLOGY METHOD 08/09/2024 6:37 AM [facility] Eosinophils Relative 0.2 % LAB HEMETOLOGY METHOD 08/09/2024 6:37 AM EDT [facility] Basophils Relative 0.2 % LAB HEMETOLOGY METHOD 08/09/2024 6:37 AM EDT [facility] Immature Granulocytes Relative 0.3 % LAB HEMETOLOGY METHOD 08/09/2024 6:37 AM EDT [facility] Neutrophils Absolute 9.68(H) 1.50 - 7.00 K/mcL LAB HEMETOLOGY METHOD 08/09/2024 6:37 AM EDT [facility] Lymphocytes Absolute 1.10 1.00 - 5.00 K/mcL LAB HEMETOLOGY METHOD 08/09/2024 6:37 AM EDT [facility] Monocytes Absolute 0.62 0.20 - 1.00 K/mcL LAB HEMETOLOGY METHOD 08/09/2024 6:37 AM EDT [facility] Eosinophils Absolute 0.02 0.00 - 0.50 K/mcL LAB HEMETOLOGY METHOD 08/09/2024 6:37 AM EDT [facility] Basophils Absolute 0.02 0.00 - 0.20 K/mcL LAB HEMETOLOGY METHOD 08/09/2024 6:37 AM EDT [facility] Immature Granulocytes Absolute 0.04(H) 0.00 - 0.03 K/mcL LAB HEMETOLOGY METHOD 08/09/2024 6:37 AM EDT [facility] Blood Venous blood specimen / Unknown Venipuncture / Unknown 08/09/2024 5:14 AM EDT 08/09/2024 6:19 AM EDT us Adiel Rosa MD LAB BLOOD ORDERABLES Final Result [facility] [address] [place] [address], * (ABNORMAL) Basic metabolic panel (08/09/2024 5:14 AM EDT) Sodium 140 133 - 145 mmol/L LAB CHEMISTRY METHOD 08/09/2024 7:22 AM [facility] Potassium 4.5 3.5 - 5.5 mmol/L LAB CHEMISTRY METHOD 08/09/2024 7:22 AM [facility] Chloride 108 96 - 110 mmol/L LAB CHEMISTRY METHOD 08/09/2024 7:22 AM [facility] CO2 24 21 - 32 mmol/L LAB CHEMISTRY METHOD 08/09/2024 7:22 AM [facility] Anion Gap 8 3 - 11 LAB CHEMISTRY METHOD 08/09/2024 7:22 AM [facility] Glucose 98 70 - 100 mg/dL LAB CHEMISTRY METHOD 08/09/2024 7:22 AM [facility] BUN 33(H) 5 - 25 mg/dL LAB CHEMISTRY METHOD 08/09/2024 7:22 AM [facility] Creatinine 1.26(H) 0.50 - 1.10 mg/dL LAB CHEMISTRY METHOD 08/09/2024 7:22 AM [facility] eGFR 47(L) >=60 mL/min/1. 73m2 LAB CHEMISTRY METHOD 08/09/2024 7:22 AM [facility] Comment:Calculation based on the Chronic Kidney Disease Epidemiology Collaboration (CKD-EPI) equation refit without adjustment for race. BUN/Creatinine Ratio 26.2 LAB CHEMISTRY METHOD 08/09/2024 7:22 AM [facility] Calcium 8.5 8.5 - 10.5 mg/dL LAB CHEMISTRY METHOD 08/09/2024 7:22 AM [facility] Blood Venous blood specimen / Unknown Venipuncture / Unknown 08/09/2024 5:14 AM EDT 08/09/2024 6:19 AM EDT us Adiel Rosa MD LAB BLOOD ORDERABLES Final Result [facility] [address] [place] [address], * (ABNORMAL) Urinalysis with reflex microscopic and culture (08/08/2024 11:07 PM EDT) Specific [place] Urine >1.045(H) 1.003 - 1.030 LAB URINALYSIS - AUTOMATED METHOD 08/09/2024 12:43 AM [facility] pH, Urine 6.0 5.0 - 8.0 pH LAB URINALYSIS - AUTOMATED METHOD 08/09/2024 12:43 AM [facility] Leukocytes, Urine Small(A) Negative LAB URINALYSIS - AUTOMATED METHOD 08/09/2024 12:43 AM [facility] Nitrite, Urine Negative Negative LAB URINALYSIS - AUTOMATED METHOD 08/09/2024 12:43 AM [facility] Protein, Urine 100(A) <=Trace mg/dL LAB URINALYSIS - AUTOMATED METHOD 08/09/2024 12:43 AM [facility] Glucose, Urine Negative Negative mg/dL LAB URINALYSIS - AUTOMATED METHOD 08/09/2024 12:43 AM [facility] Ketones, Urine 15(A) Negative mg/dL LAB URINALYSIS - AUTOMATED METHOD 08/09/2024 12:43 AM [facility] Urobilinogen , Urine 1.0 0.2 - 1.0 mg/dL LAB URINALYSIS - AUTOMATED METHOD 08/09/2024 12:43 AM [facility] Bilirubin, Urine Negative Negative LAB URINALYSIS - AUTOMATED METHOD 08/09/2024 12:43 AM [facility] Blood, Urine Large(A) Negative LAB URINALYSIS - AUTOMATED METHOD 08/09/2024 12:43 AM [facility] RBC, Urine 716.0(H) 0 - 4 /HPF LAB URINALYSIS - AUTOMATED METHOD 08/09/2024 12:43 AM EDT [facility] WBC, Urine 34.8(H) 0 - 4 /HPF LAB URINALYSIS - AUTOMATED METHOD 08/09/2024 12:43 AM EDT [facility] Squamous Epithelial, Urine >100(H) 0 - 60 /LPF LAB URINALYSIS - AUTOMATED METHOD 08/09/2024 12:43 AM EDT [facility] Bacteria, Urine Negative Negative /HPF LAB URINALYSIS - AUTOMATED METHOD 08/09/2024 12:43 AM EDT [facility] Hyaline Casts, Urine 2.0 0 - 3 /LPF LAB URINALYSIS - AUTOMATED METHOD 08/09/2024 12:43 AM EDT [facility] Urine Urine specimen obtained by clean catch procedure / Unknown Non-blood Collection / Unknown 08/08/2024 11:07 PM EDT 08/09/2024 12:32 AM EDT us Dom Orantes DO LAB URINE ORDERABLES Final Res ult Performing Organization Address [facility]/ZIP Co de Phone Number [facility] [address] [place] [address], [place] [phone] * Nicole urine culture tube (08/08/2024 11:07 PM EDT) Extra Tube Hold for add-ons. 08/09/2024 2:01 AM EDT [facility] Comment:Auto resulted. Urine Urine specimen obtained by clean catch procedure / Unknown Non-blood Collection / Unknown 08/08/2024 11:07 PM EDT 08/09/2024 12:32 AM EDT us Dom Orantes DO LAB URINE ORDERABLES Final Res ult [facility] [address] [place] [address], [place] [phone] * Culture urine (08/08/2024 11:07 PM EDT) Culture, Urine 50,000-99,000 CFU/mL Mixed urogenital catherine, no uropathogens present. Suggest repeat specimen if clinically indicated. 08/11/2024 8:52 AM EDT [facility] Urine Urine specimen obtained by clean catch procedure / Unknown Non-blood Collection / Unknown 08/08/2024 11:07 PM EDT 08/09/2024 12:43 AM EDT us Dom Orantes DO LAB MICROBIOLOGY - GENERAL ORD ERABLES Final Result [facility] [address] [place] [address], [place] [phone] * CT Abdomen Pelvis w Contrast (08/08/2024 9:03 PM EDT) Anatomical Region Laterality Modality Body Computed Tomogra phy 08/08/2024 9:45 PM EDT Impressions 08/08/2024 9:45 PM EDT 1. 9 mm obstructing stone in mid aspect right ureter with hydronephrosis, hydroureter and perinephric stranding. 2. Bilateral nonobstructing renal stones and small renal cysts as described. 3. Significant diverticulosis of descending and sigmoid colon and additional nonacute findings as detailed above. This document has been electronically signed by: Claire French MD on 08/08/2024 21:45:11 Narrative 08/08/2024 9:45 PM EDT INDICATION: Flank pain, kidney stone suspected CT abdomen and pelvis with contrast Comparison: None Findings: No consolidation or effusion. Minimal bilateral linear opacities either subsegmental atelectasis or scarring. The gallbladder is within normal limits. No biliary ductal dilatation. The liver is unremarkable. Multiple splenic granulomas. Pancreas within normal limits. Adrenal glands are normal. 9 mm stone in mid aspect right ureter with hydronephrosis, hydroureter and prominent right perinephric stranding. Bilateral nonobstructing renal stones with a 4 mm stone in right renal collecting system, 10 mm and 9 mm left renal lower pole stones, 9 mm stone in left renal pelvis and additional punctate stones in left kidney. Bilateral renal small round hypodense cortical lesions likely cysts the largest on the right 1.7 cm and on the left 1.9 cm. No bowel obstruction, pneumoperitoneum, or pneumatosis. Small hiatal hernia. Significant diverticulosis especially of the descending and sigmoid colon. Appendix is absent. Retroflexed uterus. Urinary bladder within normal limits. Atherosclerotic vascular disease with no aneurysm of abdominal aorta. No acute fracture. Diffuse demineralization, bilateral L5 pars defects and L5-S1 grade 1 anterolisthesis. Procedure Note Claire French MD - 08/08/2024 INDICATION: Flank pain, kidney stone suspected CT abdomen and pelvis with contrast Comparison: None Findings: No consolidation or effusion. Minimal bilateral linear opacities either subsegmental atelectasis or scarring. The gallbladder is within normal limits. No biliary ductal dilatation. The liver is unremarkable. Multiple splenic granulomas. Pancreas within normal limits. Adrenal glands are normal. 9 mm stone in mid aspect right ureter with hydronephrosis, hydroureterand prominent right perinephric stranding. Bilateral nonobstructing renal stones with a 4 mm stone in right renal collecting system, 10 mm and 9 mm left renal lower pole stones, 9 mmstone in left renal pelvis and additional punctate stones in left kidney. Bilateral renal small round hypodense cortical lesions likely cysts the largest on the right 1.7 cm and on the left 1.9 cm. No bowel obstruction, pneumoperitoneum, or pneumatosis. Small hiatal hernia. Significant diverticulosis especially of the descending and sigmoid colon. Appendix is absent. Retroflexed uterus. Urinary bladder within normal limits.Atherosclerotic vascular disease with no aneurysm of abdominal aorta. No acute fracture. Diffuse demineralization, bilateral L5 pars defectsand L5-S1 grade 1 anterolisthesis. IMPRESSION: 1. 9 mm obstructing stone in mid aspect right ureter withhydronephrosis, hydroureter and perinephric stranding. 2. Bilateral nonobstructing renal stones and small renal cysts as described. 3. Significant diverticulosis of descending and sigmoid colon and additional nonacute findings as detailed above. This document has been electronically signed by: Claire French MD on 08/08/2024 21:45:11 Zachary Dunn MD IM CT PROCEDURES Final Result * (ABNORMAL) Comprehensive metabolic panel (08/08/2024 6:53 PM EDT) Sodium 143 133 - 145 mmol/L LAB CHEMISTRY METHOD 08/08/2024 8:32 PM [facility] Potassium 4.2 3.5 - 5.5 mmol/L LAB CHEMISTRY METHOD 08/08/2024 8:32 PM [facility] Chloride 110 96 - 110 mmol/L LAB CHEMISTRY METHOD 08/08/2024 8:32 PM [facility] CO2 25 21 - 32 mmol/L LAB CHEMISTRY METHOD 08/08/2024 8:32 PM [facility] Anion Gap 8 3 - 11 LAB CHEMISTRY METHOD 08/08/2024 8:32 PM [facility] Glucose 97 70 - 100 mg/dL LAB CHEMISTRY METHOD 08/08/2024 8:32 PM [facility] BUN 27(H) 5 - 25 mg/dL LAB CHEMISTRY METHOD 08/08/2024 8:32 PM [facility] Creatinine 1.32(H) 0.50 - 1.10 mg/dL LAB CHEMISTRY METHOD 08/08/2024 8:32 PM [facility] eGFR 45(L) >=60 mL/min/1. 73m2 LAB CHEMISTRY METHOD 08/08/2024 8:32 PM [facility] Comment:Calculation based on the Chronic Kidney Disease Epidemiology Collaboration (CKD-EPI) equation refit without adjustment for race. BUN/Creatinine Ratio 20.5 LAB CHEMISTRY METHOD 08/08/2024 8:32 PM [facility] Calcium 9.2 8.5 - 10.5 mg/dL LAB CHEMISTRY METHOD 08/08/2024 8:32 PM [facility] AST (SGOT) 32 10 - 42 unit/L LAB CHEMISTRY METHOD 08/08/2024 8:32 PM EDT [facility] ALT (SGPT) 36 10 - 60 unit/L LAB CHEMISTRY METHOD 08/08/2024 8:32 PM EDT [facility] Alkaline Phosphatase 96 42 - 121 unit/L LAB CHEMISTRY METHOD 08/08/2024 8:32 PM EDT [facility] Total Protein 6.8 6.0 - 8.0 g/dL LAB CHEMISTRY METHOD 08/08/2024 8:32 PM EDT [facility] Albumin 3.8 3.2 - 5.0 g/dL LAB CHEMISTRY METHOD 08/08/2024 8:32 PM EDT [facility] Total Bilirubin 0.5 0.0 - 1.4 mg/dL LAB CHEMISTRY METHOD 08/08/2024 8:32 PM EDT [facility] Blood Venous blood specimen / Unknown Venipuncture / Unknown 08/08/2024 6:53 PM EDT 08/08/2024 7:57 PM EDT us Dom Orantes DO LAB BLOOD ORDERABLES Final Res ult [facility] [address] [place] [address], from Last 3 Months Insurance MEDICARE Advance Directives * Full Code - Default (Latest Code Status on File) Date Activated Date Inactivated Comments 08/08/2024 10:51 PM 08/10/2024 5:59 PM This is ord er is used when code status has not been discussed with the patient, or code status is otherwise unknown/unconfirmed To update the patient's code status, place a code status order. Do not modify or discontinue any currently active code status orders. Care Teams Medical Record Consultant Relationship Specialty Start Date End Date Physician, No Pcp PCP - General 08/08/24
== END 2024-09-06 16:45 | disposition home or self-care (01) ==
PROVIDERS: PCP Internal Medicine; Visit Provider Nurse Practitioner Family
DX: R05.2 Subacute cough (principal); R06.2 Wheezing

== ENCOUNTER → 2024-09-06 16:07 | Outpatient (BNVA) | payer MEDICARE, SELFPAY | PROVIDERS: PCP Internal Medicine; Visit Provider Nurse Practitioner Family | DX: R05.2 Subacute cough (principal); R06.2 Wheezing | CPT/HCPCS: 99212 ==

== ENCOUNTER 2025-02-11 11:02 | Outpatient (AMB) | payer MEDICARE, SELFPAY ==
[2025-02-11 11:07] VITALS: BP 154/96; PULSE 108; RESP 20; TEMP 36.6; O2SAT 92; BMI 27.3
--- NOTE | 2025-02-11 11:07 | MHC.OFFWIV ---
Intake Vital Signs 02/11/25 11:07 Height 4 ft 11 in Weight 135 lb BMI 27.3 BP 154/96 H Blood Pressure Location Rt brachial Position Sitting Respiration 20 Pulse 108 H Pulse Source Pulse Oximeter Temp 97.8 F Temp Source Oral Pulse Oximetry (%) 92 Oxygen Delivery Method Room Air Intake Visit Reasons: EP Cold symptoms, difficulty breathing Intake Note: Patient presents c/o cough, SOB/wheezing x3 days. Patient Tobacco Use Status: Former Tobacco user Allergies No Known Allergies Allergy (Verified 02/11/25 11:09) HPI HPI Comments History of Present Illness Details History - The patient is a 64 year old individual presenting with shortness of breath and cough. - Symptoms began after Thanksgiving, following contact with a sick grandson. - The patient reports a non-productive cough, dyspnea, and itchy ears. - The patient denies any fever. - Past medical history is significant for Chronic Obstructive Pulmonary Disease (COPD) and asthma. - The patient is a non-smoker and denies being prone to pneumonia. - Current medications include Anoro and albuterol, though the latter is not providing relief. - The patient used a home nebulizer at 10 a.m. on the day of the visit and has also been taking a cough medication and honey. - The patient has no known medication allergies. - She denies chest pain, abd pain, n/v/d, recent travel. Physical Exam General: Cooperative, healthy appearing, comfortable and no acute distress Orientation/consciousness: Patient oriented x3 Limitations: No limitations Head: Normal to inspection Ears: Hearing grossly normal bilaterally, external ears normal and TM's normal bilaterally. Patient reports itchy ears. Nose: Normal external nose present, normal nares present, and no nasal discharge present. Face and sinus: Sinuses nontender to palpation. Mouth: Normal oral and palatal mucosa present and moist mucous membranes noted. Throat: Tonsils normal. Uvula is midline. Posterior oropharynx with erythema and no exudates. Eyes: Appearance normal, both eyes and all related structures Neck: Normal visual inspection, full ROM. No lymphadenopathy noted. Respiratory: Wheezing noted. Clear to auscultation bilaterally. Normal respiratory effort, able to speak in complete sentences. No respiratory distress, not tachypneic, no tripod positioning and no use of accessory muscles. Cardiovascular: Regular rate and rhythm. Normal S1 and S2 Skin: No rashes or lesions noted Patient was informed and verbally consented to the use of an ambient scribe for clinic note documentation during this visit [facility] Medical History (Updated 09/06/24 @ 16:36 by Marlyn Haynes NP) Wheezing on auscultation Cough Abdominal pain ID (myocardial infarction) Tobacco dependence Wheezing Hyperlipemia HTN (hypertension) Annual physical exam Hypothyroid Hematuria Anxiety COPD (chronic obstructive pulmonary disease) Hyperthyroidism Surgical History Hx of appendectomy H/O tubal ligation H/O thyroidectomy Family History Father No problems noted. Mother CVD (cardiovascular disease) Social History Housing: House Alcohol intake: never Patient Tobacco Use Status: Former Tobacco user e-Cigarette/Vaping Use: Never Used Current occupational status: employed Cognitive needs: No Hearing needs: No Vision needs: Yes Review of Systems Const All systems reviewed & are unremarkable except as noted in HPI and below Physical Exam Vital Signs: Last Vital Signs Temp 97.8 F 02/11/25 11:07 Pulse 108 H 02/11/25 11:07 Resp 20 02/11/25 11:07 BP 154/96 H 02/11/25 11:07 Pulse Ox 92 02/11/25 11:07 Oxygen Delivery Method Room Air 02/11/25 11:07 BMI result Body Mass Index 27.3 Results Reviewed Results Reviewed: will review CXR in the office Assessment & Plan Assessment & Plan (1) Cough: Code(s): R05.9 - Cough, unspecified Qualifiers: Cough type: subacute Qualified Code(s): R05.2 - Subacute cough Plan Most likely Acute Exacerbation Of Chronic Obstructive Pulmonary Disease vs viral illness vs covid vs RSV vs flu plan - A chest x-ray was ordered to rule out pneumonia. - A swab for flu, COVID-19, and RSV was ordered. - Prescribed prednisone to address inflammation. - The patient will begin a course of azithromycin (Z-Luis Eduadro). - If the chest x-ray shows pneumonia, Augmentin will be added to the treatment regimen. - A prescription for cough pills was provided. - The patient was advised to continue using both home inhalers. - A nebulizer treatment was deferred as the patient had recently used their home nebulizer. - Follow-up will occur via phone call to discuss the results of the chest x-ray and respiratory panel. Orders: Orders SARS-CoV2/FLU/RSV Today R09.89 - Other specified symptoms and signs involving the circulatory and respiratory systems XR chest 2V Today R05.9 - Cough, unspecified Medications: New prednisone 40 mg (2 x 20 mg) PO DAILY 10 tabs 0RF 5 days azithromycin For 250 mg dose pack: take 500 mg today (day 1), then 250 mg for 4 days (days 2-5) PO 6 tabs 0RF benzonatate 100 mg PO bid-tid PRN 21 caps 0RF Cough 7 days Coding Level of Care Code Est Pt Level 4 (00076) Diagnoses Subacute cough R05.2 Cough type: subacute
--- OUTSIDE RECORDS SUMMARY | 2025-02-11 14:27 | XMS_ITS | Clinical Summary ---
Author Organization [facility] Address [address] [place] [address] Phone Care Team Providers Care Urgent Care Name Role Phone Physician, No Pcp Primary [...] mouth 1 (one) time each day. Active ipratropium-alb uteroL (DUONEB) 0.5-2.5 mg/3 mL nebulizer solution Take 3 mL by nebulization 3 (three) times a day. 5 Active metoprolol succinate (TOPROL-XL) 50 mg 24 hr tablet Take 1 tablet (50 mg total) by mouth 1 (one) time each day. Active Active Problems Problem Noted Date Diagnosed Date Chronic obstructive pulmonar y disease (CMS/HCC V24, CMS/HCC V28) 08/08/2024 Hyperlipidemia 08/08/2024 Hypertension 08/08/2024 Hypothyroid 08/08/2024 Hydronephrosis with urinary obstruction due to ureteral calculus 08/08/2024 Encounters Date Type Department Care Team Description 01/10/2025 Lab Requisition [facility] - Main Lab [address] [facility] [place] [address] Pilar Castillo PA Urinary tract infection, site not specified; Unspecified abdominal pain from Last 3 Months Surgical History Surgery Date Site/Laterality Comments CORONARY STENT PLACEMENT Medical History Medical History Date Comments COPD (chronic obstructive pulmonary disease) ([facility] V24, [facility] V28) Coronary artery disease Hypertension Disease of thyroid gland HLD (hyperlipidemia) Tobacco abuse Myocardial infarction ([facility] V24, [facility] V28) Social History Tobacco Use Types Packs/Day Years Used Date Smoking Tobacco: Some Days Cigarettes Tobacco Cessation:Ready to Q uit: Not Asked; Counseling Given: Not Answered Alcohol Use Standard Drinks/Week Comments Not Currently 0 (1 standard drink = 0.6 oz pur e alcohol) Interpersonal Safety Answer Date Record ed Physical Abuse Unrecognized value 08/09/2024 Verbal Abuse Unrecognized value 08/09/2024 Comments Unknown Sex and Gender Information [...] Last Done Comments Breast Cancer Screening 1960 Colorectal Cancer Screening: Colonoscopy 1960 DTaP,Tdap,and Td Vaccines (1 - Tdap) 1977 RSV Immunization Adult Patients (1 - Risk 50-74 years 1-dose series) 2008 Zoster Vaccines (1 of 2) 2008 Pneumococcal Vaccine: 50+ Years (2 of 2 - PCV) 08/19/2013 08/19/2012 Cholesterol Screening (Lipid Panel) 04/12/2023 Hepatitis C Screening 04/12/2023 Medicare Annual Wellness Visit 04/12/2023 Osteoporosis Screening (Bone Density Screening) 04/12/2023 Social Influencers of Health Screening 04/12/2023 Depression Screening 03/14/2024 COVID-19 Vaccine (3 - 2024-2 6 season) 2024 08/31/2020, 08/06/2020 Influenza Vaccine (#1) 2024 , 12/27/2020, 02/09/2020 Hypertension/CHF/CAD Annual BMP Blood Test [...] this topic Medical Devices Implanted Type Area Metal Punch Press Operator Device Identifier Shelf Expiration Date Model / Serial / Lot Stent Uret [id number] Contr Percuflex Hydroplus - Sna - [id number] Implanted:Qty: 1 on 08/10/2024 by Roshan Neville MD at [facility] Stents Right: Ureter [employer]Y [id number] 04/03/2027 [id number] / NA / [id number] Stent Uret [id number] Contr Percuflex Hydroplus - Sn/A - [id number] Implanted:Qty: 1 on 08/10/2024 by Roshan Neville MD at [facility] Stents Left: Ureter [employer] GY [id number] 04/16/2027 [id number] / N/A / [id number] Procedures Procedure Name Priority Date/Time Associated Diagnosis Comments CULTURE URINE Routine 01/10/2025 12:00 AM EDT Urinary tract infection, site not specified Unspecified abdominal pain BASIC METABOLIC PANEL Routine 08/09/2024 5:14 AM EDT from Last 3 Months or Most Recently Relevant to Health Maintenance Results * Culture urine (01/10/2025 12:00 AM EDT) [facility] Culture, Urine No growth 01/11/2025 1:33 PM EDT [facility] Urine Urine specimen obtained by clean catch procedure / Unknown 01/10/2025 01/10/2025 5:50 PM EDT us Pilar BREWSTER LAB MICROBIOLOGY - GENERAL ORD ERABLES Final Result [facility] [address] [place] [address], * (ABNORMAL) Basic metabolic panel (08/09/2024 5:14 AM EDT) [facility] Sodium 140 133 - 145 mmol/L LAB CHEMISTRY METHOD 08/09/2024 7:22 AM EDT [facility] Potassium 4.5 3.5 - 5.5 mmol/L LAB CHEMISTRY METHOD 08/09/2024 7:22 AM EDT [facility] Chloride 108 96 - 110 mmol/L LAB CHEMISTRY METHOD 08/09/2024 7:22 AM EDT [facility] CO2 24 21 - 32 mmol/L LAB CHEMISTRY METHOD 08/09/2024 7:22 AM EDT [facility] Anion Gap 8 3 - 11 LAB CHEMISTRY METHOD 08/09/2024 7:22 AM T [facility] Glucose 98 70 - 100 mg/dL LAB CHEMISTRY METHOD 08/09/2024 7:22 AM [facility] BUN 33(H) 5 - 25 mg/dL LAB CHEMISTRY METHOD 08/09/2024 7:22 AM [facility] Creatinine 1.26(H) 0.50 - 1.10 mg/dL LAB CHEMISTRY METHOD 08/09/2024 7:22 AM [facility] eGFR 47(L) >=60 mL/min/1. 73m2 LAB CHEMISTRY METHOD 08/09/2024 7:22 AM [facility] Comment:Calculation based on the Chronic Kidney Disease Epidemiology Collaboration (CKD-EPI) equation refit without adjustment for race. BUN/Creatinine Ratio 26.2 LAB CHEMISTRY METHOD 08/09/2024 7:22 AM [facility] Calcium 8.5 8.5 - 10.5 mg/dL LAB CHEMISTRY METHOD 08/09/2024 7:22 AM [facility] Blood Venous blood specimen / Unknown Venipuncture / Unknown 08/09/2024 5:14 AM EDT 08/09/2024 6:19 AM EDT Adiel Rosa MD LAB BLOOD ORDERABLES Final Result [facility] [address] [place] [address], from Last 3 Months or Most Recently Relevant to Health Maintenance Insurance MEDICARE Advance Directives * Full Code [...] currently active code status orders. Care Teams Urgent Care Relationship Specialty Start Date End Date Physician, No Pcp PCP - General 08/08/24
--- OUTSIDE RECORDS SUMMARY | 2025-02-11 14:27 | XMS_ITS | Encounter Summary ---
Author Organization [facility] Address [address] [place] [address] Care Team Providers Care Blasting Clay Miner Name Role Phone Physician, No Pcp Primary Care Provider Unavaila ble Encounter Details Date Type Department Care Team (Late st Contact Info) Description 01/10/[address] [facility] - Main Lab [address] [facility] [place] [address] Pilar Castillo PA [address] [place], [place] [id number] Urinary tract infection, site not specified; Unspecified abdominal pain Social History Tobacco Use Types Packs/Day Years Used Date Smoking Tobacco: Some Days Cigarettes Alcohol Use Standard Drinks/Week Comments Not Currently [...] Orientation Straight 08/08/2024 7: 21 PM EDT documented as of this encounter Plan of Treatment Not on file documented as of this encounter Procedures Procedure Name Priority Date/Time Associated Diagnosis Comments CULTURE URINE Routine 01/10/2025 12:00 AM EDT Urinary tract infection, site not specified Unspecified abdominal pain documented in this encounter Results * Culture urine (01/10/2025 12:00 AM EDT) Culture, Urine No growth 01/11/2025 1:33 PM EDT [facility] Urine Urine specimen obtained by clean catch procedure / Unknown 01/10/2025 01/10/2025 5:50 PM EDT us Pilar BREWSTER LAB MICROBIOLOGY - GENERAL ORD ERABLES Final Result [facility] [address] [place] [address], documented in this encounter Visit Diagnoses Diagnosis Urinary tract infection, site not specified Unspecified abdominal pain documented in this encounter Care Teams Blasting Clay Miner Relationship Specialty Start Date End Date Physician, No Pcp PCP - General 08/08/24 documented as of this encounter
== END 2025-02-11 12:45 | disposition home or self-care (01) ==
PROVIDERS: PCP Internal Medicine; Visit Provider Physician Assistant Medical
DX: R05.2 Subacute cough (principal)

== ENCOUNTER 2025-02-11 11:02 | Outpatient (REF) | payer MEDICARE, SELFPAY ==
--- NOTE | ~2025-02-11 | XR_ITS ---
EXAMINATION: XR CHEST CLINICAL INFORMATION: R05.9 - Cough, unspecified COMPARISON: X-ray 06/28/2024 TECHNIQUE: 2 views of the chest were obtained. FINDINGS: Cardiomediastinal silhouette is normal, stable. Redemonstrated hyperinflated lungs consistent with COPD. Calcified granulomas the right lung base. Stable linear subsegmental atelectasis/scarring in the left lung base. Hazy opacity in the medial right lung base, slightly more prominent as compared to previous. This could reflect bronchovascular crowding versus infiltrate. . No effusion. No pneumothorax. Thoracic spine degeneration. XR/XR chest 2V IMPRESSION: Hazy opacity in the medial right lung base, could reflect bronchovascular crowding versus infiltrate. Electronically signed by: John Elizabeth MD 02/11/2025 12:36 PM JAMES
[2025-02-11 14:36] LABS: Resp Syncy Virus RNA Qual PCR NEGATIVE (Negative); SARS COV2 PCR INHOUSE NEGATIVE (Negative)
== END 2025-02-11 11:03 | disposition home or self-care (01) ==
LOC: HO.HMGCX 11:02
PROVIDERS: PCP Internal Medicine; Visit Provider Physician Assistant Medical
DX: R05.2 Subacute cough (principal); R09.89 Other specified symptoms and signs involving the circulatory and respiratory systems
CPT/HCPCS: 71046; 87637; 99212

== ENCOUNTER → 2025-02-11 12:13 | Outpatient (BNV) | payer MEDICARE, SELFPAY | PROVIDERS: PCP Internal Medicine; Visit Provider Radiology Diagnostic Ultrasound | DX: R91.8 Other nonspecific abnormal finding of lung field (principal) | CPT/HCPCS: 71046 ==

== ENCOUNTER 2025-02-18 12:28 | Outpatient (AMB) | payer MEDICARE, SELFPAY ==
[2025-02-18 12:51] VITALS: BP 114/66; PULSE 109; RESP 16; TEMP 36.8; O2SAT 95; BMI 26.5
--- NOTE | 2025-02-18 12:51 | AM.OFFWIN_ITS ---
Intake Vital Signs 02/18/25 12:51 Height 4 ft 11 in Weight 131 lb BMI 26.5 BP 114/66 Blood Pressure Location Lt brachial Position Sitting Respiration 16 Pulse 109 H Pulse Source Pulse Oximeter Temp 98.2 F Temp Source Oral Pulse Oximetry (%) 95 Oxygen Delivery Method Room Air Intake Visit Reasons: EP Cough, chest discomfort, headaches Intake Note: Patient presents c/o chest congestion, cough- yellow phlegm x2 weeks. Patient was seen on 02/11 & would like testing redone. Patient Tobacco Use Status: Former Tobacco user Allergies No Known Allergies Allergy (Verified 02/18/25 12:56) Medication List - Last Reconciled 02/18/25 by Marlyn Haynes, ROXANA albuterol sulfate 90 mcg/actuation 2 puffs inhalation Q4-6H PRN amoxicillin-pot clavulanate 875-125 mg 1 tab PO BID 10 days Anoro Ellipta 62.5-25 mcg/actuation (umeclidinium-vilanterol) 1 inh inhalation DAILY 3 months NS aspirin 81 mg PO DAILY atorvastatin 80 mg PO BEDTIME ipratropium-albuterol 0.5 mg-3 mg(2.5 mg base)/3 mL 3 mL inhalation Q4-6H PRN Levoxyl (levothyroxine) 75 mcg PO DAILY NS metoprolol succinate ER 50 mg PO DAILY nicotine (Nicoderm CQ) 1 patch transdermal DAILY tiotropium bromide 2.5 mcg/actuation (Spiriva Respimat) 2 inhalations inhalation QAM HPI HPI Comments History of Present Illness Details 64-year-old female presents to the walk- in clinic with continued productive cough, shortness of breath, wheezing, and chest pressure. She was recently admitted at [facility] from 02/11?02/15 for acute hypoxia secondary to Rhinovirus infection with Asthma/COPD exacerbation. Chest X-ray during admission showed pneumonia (likely viral). SARS swab was positive for Rhinovirus. She completed a 5-day course of Azithromycin and Prednisone during hospitalization. Today she reports persistent SOB and productive cough despite treatment. She uses Anoro for COPD but states she has been having multiple respiratory exacerbations recently. She is requesting a referral to Pulmonology for further evaluation and management. Denies fevers, chest pain beyond pressure, nausea, vomiting, or hemoptysis. [facility] Medical History (Updated 02/18/25 @ 13:33 by Marlyn Haynes NP) Wheezing on auscultation Cough Abdominal pain OK (myocardial infarction) Tobacco dependence Wheezing Hyperlipemia HTN (hypertension) Annual physical exam Hypothyroid Hematuria Anxiety COPD (chronic obstructive pulmonary disease) Hyperthyroidism Surgical History Hx of appendectomy H/O tubal ligation H/O thyroidectomy Family History Father No problems noted. Mother CVD (cardiovascular disease) Social History Housing: House Alcohol intake: never Patient Tobacco Use Status: Former Tobacco user e-Cigarette/Vaping Use: Never Used Current occupational status: employed Cognitive needs: No Hearing needs: No Vision needs: Yes Review of Systems Const All systems reviewed & are unremarkable except as noted in HPI and below Physical Exam Vital Signs: Last Vital Signs Temp 98.2 F 02/18/25 12:51 Pulse 109 H 02/18/25 12:51 Resp 16 02/18/25 12:51 BP 114/66 02/18/25 12:51 Pulse Ox 95 02/18/25 12:51 Oxygen Delivery Method Room Air 02/18/25 12:51 BMI result Body Mass Index 26.5 Const General: no acute distress Nutritional Appearance: well nourished Orientation/consciousness: patient oriented x3 Resp Effort & Inspection: normal respiratory effort, able to speak in complete sentences and Actively coughing Auscultation: no crackles, no rales, no rhonchi and wheezes expiratory wheezes Cardio Heart sounds: S1 normal heart sound present and S2 normal heart sound present Neuro General: patient oriented x3, gait normal and moves all extremities Psych Speech and movement: Normal speech and movement present Assessment & Plan Assessment & Plan (1) COPD (chronic obstructive pulmonary disease): Code(s): J44.9 - Chronic obstructive pulmonary disease, unspecified Qualifiers: COPD type: COPD with acute exacerbation Qualified Code(s): J44.1 - Chronic obstructive pulmonary disease with (acute) exacerbation Plan: COPD/Asthma exacerbation, persistent symptoms post-hospitalization. Recent viral pneumonia (Rhinovirus) ? symptoms improving only partially. Ordered Augmentin for 10 days. Recurrent respiratory exacerbations ? needs specialty evaluation (f/u with PCP for this). Continue Anoro daily as prescribed. Added Spiriva inhaler. Continue Rescue inhaler (Albuterol) q4?6 hrs PRN for wheezing/SOB. Ordered SARs. Orders: Orders SARS-CoV2/FLU/RSV Today R09.89 - Other specified symptoms and signs involving the circulatory and respiratory systems Medications: New amoxicillin-pot clavulanate 875-125 mg 1 tab PO BID 20 tabs 0RF 10 days J44.1 - Chronic obstructive pulmonary disease with (acute) exacerbation tiotropium bromide 2.5 mcg/actuation (Spiriva Respimat) 2 inhalations inhalation QAM 4 grams 1RF J44.1 - Chronic obstructive pulmonary disease with (acute) exacerbation Coding Level of Care Code Est Pt Level 4 (16030) Diagnoses Chronic obstructive pulmonary disease with acute exacerbation J44.1 COPD type: COPD with acute exacerbation Time Spent (min) 20
== END 2025-02-18 13:40 | disposition home or self-care (01) ==
PROVIDERS: PCP Internal Medicine; Visit Provider Nurse Practitioner Family
DX: J44.1 Chronic obstructive pulmonary disease with (acute) exacerbation (principal)

== ENCOUNTER 2025-02-18 12:28 | Outpatient (REF) | payer MEDICARE, SELFPAY ==
[2025-02-18 17:20] LABS: Resp Syncy Virus RNA Qual PCR NEGATIVE (Negative); SARS COV2 PCR INHOUSE NEGATIVE (Negative)
--- OUTSIDE RECORDS SUMMARY | 2025-02-18 23:20 | XMS_ITS | Clinical Summary ---
Author Organization [facility] Address [address] [place] [address] Phone Care Team Providers Care Podiatric Physician Name Role Phone Physician, No Pcp Primary [...] Problem Noted Date Diagnosed Date Chronic obstructive pulmonary disease 08/08/2024 Hyperlipidemia 08/08/2024 Hypertension 08/08/2024 Hypothyroid 08/08/2024 Hydronephrosis with urinary obstruction due to ureteral calculus 08/08/2024 Encounters Date Type Department Care Team Description 01/10/2025 Lab Requisition [facility] - Main Lab [address] [facility] [place] [address] Pilar Castillo PA Urinary tract infection, site not specified; Unspecified abdominal pain from Last 3 Months Surgical History Surgery Date Site/Laterality Comments CORONARY STENT PLACEMENT Medical History Medical History Date Comments COPD (chronic obstructive pulmonary disease) ([facility] V24, [facility] V28) Coronary artery disease Hypertension Disease of thyroid gland HLD (hyperlipidemia) Tobacco abuse Myocardial infarction ([facility] V24, [facility] V28) Social History Tobacco Use Types Packs/Day [...] Orientation Straight 08/08/2024 7: 21 PM EDT Last Filed Vital Signs Vital Sign Reading [...] this topic Medical Devices Implanted Type Area Child Abuse Worker Device Identifier Shelf Expiration Date Model / Serial / Lot Stent Uret [id number] Contr Percuflex Hydroplus - Sna - [id number] Implanted:Qty: 1 on 08/10/2024 by Roshan Neville MD at [facility] Stents Right: Ureter [employer] GY [id number] 04/03/2027 [id number] 60 / NA / [id number] Stent Uret [id number] Contr Percuflex Hydroplus - Sn/A - [id number] Implanted:Qty: 1 on 08/10/2024 by Roshan Neville MD at [facility] Stents Left: Ureter [employer] [id number] 04/16/2027 [id number] 60 / N/A / [id number] Procedures Procedure Name Priority Date/Time Associated Diagnosis Comments CULTURE URINE Routine 01/10/2025 12:00 AM EDT Urinary tract infection, site not specified Unspecified abdominal pain BASIC METABOLIC PANEL Routine 08/09/2024 5:14 AM EDT from Last 3 Months or Most Recently Relevant to Health Maintenance Results * Culture urine (01/10/2025 12:00 AM EDT) [facility] Culture, Urine No growth 01/11/2025 1:33 PM EDT [facility] Urine Urine specimen obtained by clean catch procedure / Unknown 01/10/2025 01/10/2025 5:50 PM EDT us Pilar BREWSTER LAB MICROBIOLOGY - GENERAL ORD ERABLES Final Result [facility] [address] [place] [address], * (ABNORMAL) Basic metabolic panel (08/09/2024 5:14 AM EDT) [facility] Sodium 140 133 - 145 mmol/L LAB CHEMISTRY METHOD 08/09/2024 7:22 AM EDT [facility] Potassium 4.5 3.5 - 5.5 mmol/L LAB CHEMISTRY METHOD 08/09/2024 7:22 AM EDT [facility] Chloride 108 96 - 110 mmol/L LAB CHEMISTRY METHOD 08/09/2024 7:22 AM EDT [facility] CO2 24 21 - 32 mmol/L LAB CHEMISTRY METHOD 08/09/2024 7:22 AM EDT [facility] Anion Gap 8 3 - 11 LAB CHEMISTRY METHOD 08/09/2024 7:22 AM EDT [facility] Glucose 98 70 - 100 mg/dL LAB CHEMISTRY METHOD 08/09/2024 7:22 AM T [facility] BUN 33(H) 5 - 25 mg/dL LAB CHEMISTRY METHOD 08/09/2024 7:22 AM [facility] Creatinine 1.26(H) 0.50 - 1.10 mg/dL LAB CHEMISTRY METHOD 08/[facility]24 [facility] eGFR 47(L) >=60 mL/min/1. 73m2 LAB CHEMISTRY METHOD 08/09/2024 7:22 AM [facility] Comment:Calculation based on the Chronic Kidney Disease Epidemiology Collaboration (CKD-EPI) equation refit without adjustment for race. BUN/Creatinine Ratio 26.2 LAB CHEMISTRY METHOD 08/09/2024 7:22 AM [facility] Calcium 8.5 8.5 - 10.5 mg/dL LAB CHEMISTRY METHOD 08/09/2024 7:22 AM [facility] Blood Venous blood specimen / Unknown Venipuncture / Unknown 08/09/2024 5:14 AM EDT 08/09/2024 6:19 AM EDT us Adiel Rosa MD LAB BLOOD ORDERABLES Final Result [facility] [address] [place] [address], from Last 3 Months or Most Recently [...] currently active code status orders. Care Teams Podiatric Physician Relationship Specialty Start Date End Date Physician, No Pcp PCP - General 08/08/24
--- OUTSIDE RECORDS SUMMARY | 2025-02-18 23:20 | XMS_ITS | Encounter Summary ---
Author Organization [facility] Address [address] [place] [address] Care Team Providers Care Youth Accommodation Support Worker Name Role Phone Physician, No Pcp Primary Care Provider Unavaila ble Encounter Details Date Type Department Care Team (Late st Contact Info) Description 01/10/2025 Lab Requisition [facility] - Main Lab [address] [facility] [place] [address] Pilar Castillo PA [address] [place], [place] [id number] Urinary tract infection, site not specified; Unspecified [...] Urine No growth 01/11/2025 1:33 PM EDT [facility] Urine Urine specimen obtained by clean catch procedure / Unknown 01/10/2025 01/10/2025 5:50 PM EDT us Pilar [facility] MICROBIOLOGY - GENERAL ORD ERABLES Final Result [facility] [address] [place] [address], documented in this encounter Visit Diagnoses Diagnosis Urinary tract infection, site not specified Unspecified abdominal pain documented in this encounter Care Teams Youth Accommodation Support Worker Relationship Specialty Start Date End Date Physician, No Pcp PCP - General 08/08/24 documented as of this encounter
== END 2025-02-18 12:29 | disposition home or self-care (01) ==
LOC: HO.LAB 12:28
PROVIDERS: PCP Internal Medicine; Visit Provider Nurse Practitioner Family
DX: J44.1 Chronic obstructive pulmonary disease with (acute) exacerbation (principal); J12.89 Other viral pneumonia; R09.89 Other specified symptoms and signs involving the circulatory and respiratory systems; Z79.899 Other long term (current) drug therapy; Z79.82 Long term (current) use of aspirin; Z87.891 Personal history of nicotine dependence
CPT/HCPCS: 87637

== ENCOUNTER 2025-02-21 13:52 | Outpatient (AMB) | payer MEDICARE, SELFPAY ==
[2025-02-21 14:18] VITALS: BP 126/80; PULSE 80; RESP 17; TEMP 36.7; O2SAT 95; BMI 26.7
--- NOTE | 2025-02-21 14:18 | A.OFFPC_ITS ---
Vital Signs 02/21/25 14:18 Height 4 ft 11 in Weight 132 lb BMI 26.7 BP 126/80 Blood Pressure Location Lt brachial Position Sitting Respiration 17 Pulse 80 Pulse Source Pulse Oximeter Temp 98.0 F Temp Source Oral Pulse Oximetry (%) 95 Oxygen Delivery Method Room Air Intake Visit Reasons: Discharge follow up Intake Note: Pt is here today for Hospital follow up visit. Allergies No Known Allergies Allergy (Verified 02/21/25 14:47) Medication List - Last Reconciled 02/21/25 by Sharda Stevenson MD albuterol sulfate 90 mcg/actuation 2 puffs inhalation Q4-6H PRN amoxicillin-pot clavulanate 875-125 mg 1 tab PO BID 10 days Anoro Ellipta 62.5-25 mcg/actuation (umeclidinium-vilanterol) 1 inh inhalation DAILY 3 months NS aspirin 81 mg PO DAILY atorvastatin 80 mg PO BEDTIME ipratropium-albuterol 0.5 mg-3 mg(2.5 mg base)/3 mL 3 mL inhalation Q4-6H PRN Levoxyl (levothyroxine) 75 mcg PO DAILY NS metoprolol succinate ER 50 mg PO DAILY nicotine (Nicoderm CQ) 1 patch transdermal DAILY umeclidinium 62.5 mcg/actuation (Incruse Ellipta) 1 inh inhalation BEDTIME Tobacco use date assessed: 02/21/25 Fall risk assessment: No Falls in past year Last assessed Fall Risk: 02/21/25 Dental Screening Dental Screen Date: 02/21/25 Did you have a dental visit in the last 12 months?: No Did you have a dental problem in the last 6 months where you did not have access to dental care?: No Was dental information given to patient?: Patient declined HPI Discharge follow up HPI Details Patient presents for the follow-up of hospitalization at [facility] from February 11 through for RSV infection COPD exacerbation. Patient recovered well was discharged home on prednisone taper and antibiotic patient is feeling better denies cough shortness or breath or wheezing. She has been taking Anoro regularly. Hypertension and hyperlipidemia are controlled on current medications. [facility] Medical History (Updated 02/21/25 @ 15:48 by Sharda Stevenson MD) Cough Abdominal pain [place] (myocardial infarction) Tobacco dependence Hyperlipemia HTN (hypertension) Annual physical exam Hypothyroid Hematuria Anxiety COPD (chronic obstructive pulmonary disease) Hyperthyroidism Surgical History Hx of appendectomy H/O tubal ligation H/O thyroidectomy Family History Father No problems noted. Mother CVD (cardiovascular disease) Social History Housing: House Alcohol intake: never Patient Tobacco Use Status: Former Tobacco user e-Cigarette/Vaping Use: Never Used service: No Current occupational status: employed Cognitive needs: No Hearing needs: No Vision needs: Yes Questionnaire PHQ-9 Over the last 2 weeks, how often have you been bothered by any of the following problems? 1. Little interest or pleasure in doing things: not at all 2. Feeling down, depressed, or hopeless: not at all 3. Trouble falling or staying asleep, or sleeping too much: several days 4. Feeling tired or having little energy: several days 5. Poor appetite or overeating: not at all 6. Feeling bad about yourself - or that you are a failure or have let yourself or your family down: not at all 7. Trouble concentrating on things, such as reading the newspaper or watching television: not at all 8. Moving or speaking so slowly that other people could have noticed. Or the opposite - being so fidgety or restless that you have been moving around a lot more than usual: not at all 9. Thoughts that you would be better off or of hurting yourself in some w ay: not at all Total score: 2 Depression Screening Interpretation: Negative Depression Screening Done: Yes 03558 - PHQ-9 Billing: Yes Source: Developed by Drs. Alen Prajapati, Shikha Gordon, Melquiades Rivers and colleagues, with an educational dhaval from [employer]. Thrive Questionnaire Date Thrive assessed: 02/21/25 I am a: Patient What is your living situation today?: I have a steady place to live Within the past 12 months, did the food you bought not last and you didn't have the money to get more?: Never true Within the past 12 months, did you worry whether your food would run out before you got money to buy more?: Never true Do you have trouble paying for medicines?: I choose not to answer this question Do you have trouble getting transportation to medical appointments?: No Do you have trouble paying your heating and electricity bill?: No Do you have trouble taking care of your child, family member or friend?: No Do you have trouble with day-to-day activities such as bathing, preparing meals, shopping, managing finances, etc.?: No Are you currently unemployed and looking for a job?: No Are you interested in more education?: No Please select the resources that you would like help with: None Currently or been in a relationship where the following occur: No concerns reported THRIVE Score: 0 AUDIT C Alcohol Use Questionnaire (AUDIT-C) 1. How often do you have a drink containing alcohol?: Monthly or less 2. How many drinks containing alcohol do you have on a typical day when you are drinking?: 1 or 2 3. How often do you have six or more drinks on one occasion?: Never Total Score: 1 GÓMEZ-7 AMB Questionnaire GÓMEZ-7 Date GÓMEZ - 7 assessed: 02/21/25 Feeling nervous, anxious, or on edge: 0 = Not at all Not being able to stop or control worryin = Not at all Worrying too much about different things: 0 = Not at all Trouble relaxin = Not at all Being so restless that it is hard to sit still: 0 = Not at all Becoming easily annoyed or irritable: 0 = Not at all Feeling afraid as if something awful might happen: 0 = Not at all Total GÓMEZ-7 score (0-4 normal; 5-9 mild; 10-14 moderate; 15-21 severe): 0 Source: Developed by Drs. Alen Prajapati, Shikha Gordon, Melquiades Rivers and colleagues, with an educational dhaval from [employer]. GÓMEZ-7 Assessment Billing GÓMEZ-7 Assessment Tool: GÓMEZ-7 Assessment 27537 Review of Systems Const All systems reviewed & are unremarkable except as noted in HPI and below ENT Reports no additional complaints Card Reports no additional complaints Resp Reports no additional complaints GI Reports no additional complaints Physical exam (Primary Care) Vital Signs: Last Vital Signs Temp 98.0 F 02/21/25 14:18 Pulse 80 02/21/25 14:18 Resp 17 12/11/25 14:18 BP 126/80 02/21/25 14:18 Pulse Ox 95 02/21/25 14:18 Oxygen Delivery Method Room Air 02/21/25 14:18 BMI result Body Mass Index 26.7 Tobacco/Smoking Status: Tobacco use Status Tobacco use date assessed 02/21/25 02/21/25 14:48 Patient Tobacco Use Status Former Tobacco user 02/21/25 14:18 Tobacco use type 06/28/24 09:12 e-Cigarette/Vaping Use Never Used 02/21/25 14:18 PHQ-9: PHQ-9 Score PHQ-9: Total score 2 02/21/25 14:52 Depression Screening Interpretation: Negative Thrive Assessment: Date of Thrive Assessment Date Thrive assessed 02/21/25 02/21/25 14:52 Currently or been in a relationship where the following occur: No concerns reported Const General: no acute distress HENMT Head: Yes normal to inspection Face and sinus: Yes normal facial exam Eyes General: appearance normal, both eyes and all related structures Resp Effort & Inspection: normal respiratory effort Auscultation: clear to auscultation bilaterally Cardio Rhythm: regular rhythm Heart sounds: S1 normal heart sound present and S2 normal heart sound present Coding Level of Care Code Est Pt Level 4 (00642) Diagnoses [place] (myocardial infarction) I21.9 Chronic obstructive pulmonary disease with acute exacerbation J44.1 COPD type: COPD with acute exacerbation Additional Codes GÓMEZ-7 Assessment Billing - GÓMEZ-7 Assessment Tool: GÓMEZ-7 Assessment 25683 ([id number]) PHQ-9 - 27758 - PHQ-9 Billing: Yes ([id number]) Assessment & Plan Assessment & Plan (1) [place] (myocardial infarction): Comment: STEMI 07/03 s/p 2 PARMINDER in [facility] Code(s): I21.9 - Acute myocardial infarction, unspecified Category: Medical Plan: On high dose of statin aspirin and metoprolol (2) COPD (chronic obstructive pulmonary disease): Code(s): J44.9 - Chronic obstructive pulmonary disease, unspecified Category: Medical Qualifiers: COPD type: COPD with acute exacerbation Qualified Code(s): J44.1 - Chronic obstructive pulmonary disease with (acute) exacerbation Plan: Continue Anoro Ellipta Medications: Refilled Anoro Ellipta 62.5-25 mcg/actuation (umeclidinium-vilanterol) 1 inh inhalation DAILY 180 ea 0RF 3 months NS Discontinued amoxicillin-pot clavulanate 875-125 mg Discontinued Reason: Doctor's Order 1 tab PO BID 10 days 20 tabs 0RF J44.1 - Chronic obstructive pulmonary disease with (acute) exacerbation umeclidinium 62.5 mcg/actuation (Incruse Ellipta) Discontinued Reason: Doctor's Order 1 inh inhalation BEDTIME 30 ea 0RF J44.1 - Chronic obstructive pulmonary disease with (acute) exacerbation
--- OUTSIDE RECORDS SUMMARY | 2025-02-21 21:08 | XMS_ITS | Clinical Summary ---
Author Organization [facility] Address [address] [place] [address] Phone Care Team Providers Care Wage And Salary Administrator Name Role Phone Physician, No Pcp Primary [...] Department Care Team Description 01/10/2025 Lab Requisition [facility] - Main Lab [address] [facility] [place] [address] Pilar Castillo PA Urinary tract infection, site not specified; Unspecified abdominal pain from Last 3 Months Surgical History Surgery Date Site/Laterality Comments CORONARY STENT PLACEMENT Medical History Medical History Date Comments COPD (chronic obstructive pulmonary disease) ([facility] V24, [facility] V28) Coronary artery disease Hypertension Disease of thyroid gland HLD (hyperlipidemia) Tobacco abuse Myocardial infarction ([facility] V24, [facility] V28) Social History Tobacco Use Types Packs/Day [...] this topic Medical Devices Implanted Type Area Veterinary Inspector Device Identifier Shelf Expiration Date Model / Serial / Lot Stent Uret [id number] Contr Perc[employer]lex Hydroplus - Sna - [id number] Implanted:Qty: 1 on 08/10/2024 by Roshan Neville MD at [facility] Stents Right: Ureter [employer] GY [id number] 04/03/2027 [id number] 60 / NA / [id number] Stent Uret [id number] Contr [employer]plus - Sn/A - [id number] Implanted:Qty: 1 on 08/10/2024 by Roshan Neville MD at [facility] Stents Left: Ureter [employer] [id number] 04/16/2027 [id number] 60 / N/A / [id number] Procedures Procedure Name Priority Date/Time Associated Diagnosis Comments CULTURE URINE Routine 01/10/2025 12:00 AM EDT Urinary tract infection, site not specified Unspecified abdominal pain BASIC METABOLIC PANEL Routine 08/09/2024 5:14 AM EDT from Last 3 Months or Most Recently Relevant to Health Maintenance Results * Culture urine (01/10/2025 12:00 AM EDT) [facility] Culture, Urine No growth 01/11/2025 1:33 PM EDT [facility] Urine Urine specimen obtained by clean catch procedure / Unknown 01/10/2025 01/10/2025 5:50 PM EDT us Pilar BREWSTER LAB MICROBIOLOGY - GENERAL ORD ERABLES Final Result [facility] [address] [place] [address], * (ABNORMAL) Basic metabolic panel (08/09/2024 5:14 AM EDT) [facility] Sodium 140 133 - 145 mmol/L LAB [...] 7:22 AM EDT [facility] Glucose 98 70 - 100 mg/dL LAB CHEMISTRY METHOD 08/09/2024 7:22 AM T [facility] BUN 33(H) 5 - 25 mg/dL LAB CHEMISTRY METHOD 08/09/2024 7:22 AM [facility] Creatinine 1.26(H) 0.50 - 1.10 mg/dL LAB CHEMISTRY METHOD [facility] eGFR 47(L) >=60 mL/min/1. 73m2 LAB CHEMISTRY METHOD 08/09/2024 7:22 AM [facility] Comment:Calculation based on the Chronic Kidney Disease Epidemiology Collaboration (CKD-EPI) equation refit without adjustment for race. BUN/Creatinine Ratio 26.2 LAB CHEMISTRY METHOD 08/09/2024 7:22 AM [facility] Calcium 8.5 8.5 - 10.5 mg/dL LAB CHEMISTRY METHOD 08/09/2024 7:22 AM [facility] Blood Venous blood specimen / Unknown Venipuncture / Unknown 08/09/2024 5:14 AM EDT 08/09/2024 6:19 AM EDT us Adiel Rosa MD LAB BLOOD ORDERABLES Final Result [facility] [address] [place] [address], from Last 3 Months or Most Recently [...] currently active code status orders. Care Teams Wage And Salary Administrator Relationship Specialty Start Date End Date Physician, No Pcp PCP - General 08/08/24
--- OUTSIDE RECORDS SUMMARY | 2025-02-21 21:08 | XMS_ITS | Encounter Summary ---
Author Organization [facility] Address [address] [place] [address] Care Team Providers Care Welt Insole Channeler Name Role Phone Physician, No Pcp Primary Care Provider Unavaila ble Encounter Details Date Type Department Care Team (Late st Contact Info) Description 01/10/2025 Lab Requisition [facility] - Main Lab [address] [facility] [place] [address] Pilar Castillo PA [address] [place], [place] [phone] Urinary tract infection, site not specified; Unspecified [...] Urine No growth 01/11/2025 1:33 PM EDT [facility] Urine Urine specimen obtained by clean catch procedure / Unknown 01/10/2025 01/10/2025 5:50 PM EDT us Pilar BREWSTER LAB MICROBIOLOGY - GENERAL ORD ERABLES Final Result [facility] [address] [place] [address], documented in this encounter Visit Diagnoses Diagnosis Urinary tract infection, site not specified Unspecified abdominal pain documented in this encounter Care Teams Welt Insole Channeler Relationship Specialty Start Date End Date Physician, No Pcp PCP - General 08/08/24 documented as of this encounter
== END 2025-02-21 15:50 | disposition home or self-care (01) ==
LOC: HO.HMCC 13:53
PROVIDERS: PCP Internal Medicine; Visit Provider Internal Medicine
DX: J44.1 Chronic obstructive pulmonary disease with (acute) exacerbation (principal); I25.2 Old myocardial infarction

== ENCOUNTER → 2025-02-21 13:52 | Outpatient (BNVA) | payer MEDICARE, SELFPAY | PROVIDERS: PCP Internal Medicine; Visit Provider Internal Medicine | DX: Z09 Encounter for follow-up examination after completed treatment for conditions other than malignant neoplasm (principal); J44.1 Chronic obstructive pulmonary disease with (acute) exacerbation; I21.9 Acute myocardial infarction, unspecified; Z13.31 Encounter for screening for depression; Z13.39 Encounter for screening examination for other mental health and behavioral disorders | CPT/HCPCS: 96127; 99212 ==

== ENCOUNTER 2025-02-26 11:09 | Inpatient (IN) | payer MEDICARE, SELFPAY ==
[2025-02-26] VITALS (8 sets, daily range): BP systolic 138–150; BP diastolic 72–86; PULSE 86–110; RESP 12–25; TEMP 36.8–37.7; O2SAT 84–98; BMI 26.3
--- NOTE | ~2025-02-26 | CT_ITS ---
CLINICAL HISTORY: hypoxia, tachycardia CT angiography chest with contrast. 3D Postprocessing. Comparison: None provided Findings: Calcified coronary atherosclerotic disease. Unremarkable thoracic aorta and great vessels. No aneurysm. No main or segmental pulmonary emboli identified. Small paraesophageal hernia. Centrilobular lucencies predominantly upper lobes. No active inflammatory changes. Multiple splenic subcentimeter granulomas; sequela of prior histoplasmosis infection. Mild calcified atheromatous disease of the abdominal aorta. No acute fractures. Mild osteopenia. IMPRESSION: 1. Centrilobular emphysema. 2. Small paraesophageal hernia. 3. No acute findings. 4. No main or segmental pulmonary emboli identified. This document has been electronically signed by: James Pinzon MD on 02/26/2025 19:35:41
--- NOTE | ~2025-02-26 | XR_ITS ---
EXAMINATION: XR CHEST CLINICAL INFORMATION: cough COMPARISON: Previous chest x-ray most recently February 11, 2025 TECHNIQUE: 2 views of the chest were obtained. FINDINGS: Well-inflated lungs. Stable 5 mm dense nodule right medial lung base. Lungs otherwise clear. No consolidation or pulmonary edema. No pleural effusion or pneumothorax. Cardiac and mediastinal contours are stable. Degenerative changes of the spine. XR/XR chest 2V IMPRESSION: No evidence for acute disease in the chest. Electronically signed by: Tammy Card MD 02/26/2025 12:28 PM JAMES
--- NOTE | 2025-02-26 11:59 | ED.URI ---
HPI - URI/Sore Throat General Chief Complaint: Upper Respiratory Symptoms Stated Complaint: upper resp symptoms, SOB Time Seen by Provider: 02/26/25 13:53 Source: patient and old records reviewed Mode of arrival: ambulatory Limitations: no limitations History of Present Illness ED Provider: JOEL ALBA Narrative: 64-year-old female with past medical history of bronchitis, pneumonia, COPD not on home oxygen, hypertension, hyperlipidemia, hypothyroidism, CAD, she is nonsmoker she presents with 2 weeks of cold symptoms and notes she was just recently admitted to [facility] 02/11-02/15 on zpak and prednisone taper (already completed). She notes she now has a worsenign runny nose over the past few days as well as cough and sputum. No chest pain reported. She is able to eat and drink. MD elicited complaint: cough, rhinorrhea, nasal congestion and sinus pain Onset (ago): day(s) (14) Consistency: constant Severity: moderate Description of mucous: yellow Able to tolerate fluids by mouth: Yes Exacerbating factors: other Relieving factors: nothing Context: recent hospitalization Associated symptoms: chills, rhinorrhea, nasal congestion, cough and shortness of breath Treatments prior to arrival: none Related Data Home Medications ?Medication ?Instructions ?Recorded ?Confirmed aspirin 81 mg tablet,delayed 81 mg PO DAILY 07/14/21 02/26/25 release amoxicillin 875 mg-potassium 1 tab PO BID 02/26/25 02/26/25 clavulanate 125 mg tablet ipratropium 0.5 mg-albuterol 3 mg 3 ml inhalation Q4H PRN wheezing 02/26/25 02/26/25 (2.5 mg base)/3 mL nebulization soln Previous Rx's ?Medication ?Instructions ?Recorded Levoxyl 75 mcg tablet 75 mcg PO DAILY #90 tabs 02/13/24 (levothyroxine) atorvastatin 80 mg tablet 80 mg PO BEDTIME #90 tabs 02/13/24 metoprolol succinate 50 mg 50 mg PO DAILY #90 tabs 02/13/24 tablet,extended release 24 hr albuterol sulfate 90 mcg/actuation 2 puff inhalation Q4-6H PRN 09/06/24 aerosol inhaler shortness of breath or wheezing #6.7 grams Anoro Ellipta 62.5 mcg-25 1 inh inhalation DAILY 3 months 02/21/25 mcg/actuation powder for #180 ea inhalation (umeclidinium-vilanterol) oseltamivir 75 mg capsule (Tamiflu) 75 mg PO BID 5 days #10 caps 02/26/25 prednisone 20 mg tablet 40 mg (2 x 20 mg) PO DAILY 5 days 02/26/25 #10 tabs Allergies Allergy/AdvReac Type Severity Reaction Status Date / Time No Known Allergies Allergy Verified 02/26/25 12:03 Review of Systems Review of Systems: Yes all other systems are reviewed and are negative [facility] Past Medical History Attestation statement: The following information was validated with the patient. Source: old records reviewed Medical History Cough Abdominal pain [place] (myocardial infarction) Tobacco dependence Hyperlipemia HTN (hypertension) Annual physical exam Hypothyroid Hematuria Anxiety COPD (chronic obstructive pulmonary disease) Hyperthyroidism Surgical History Hx of appendectomy H/O tubal ligation H/O thyroidectomy Family History Family History Father No problems noted. Mother CVD (cardiovascular disease) Social History Social History Housing: House Unable to assess alcohol history related to: Unknown Alcohol intake: never Patient Tobacco Use Status: Former Tobacco user e-Cigarette/Vaping Use: Never Used Advance Directives: Yes Advance Directives Information Provided: Yes Advance Directives on File: No Nutrition Risks: No Nutritional Risk service: No Current occupational status: employed Cognitive needs: No Hearing needs: No Vision needs: Yes Physical Exam Vital Signs: Vital Signs: Last Vital Signs Temp 98.3 F 02/27/25 01:51 Pulse 100 02/27/25 08:15 Resp 18 02/27/25 08:15 BP 137/82 02/27/25 08:00 Pulse Ox 95 02/27/25 08:00 O2 Del Method Room Air 02/27/25 08:00 BMI result Body Mass Index 26.3 Appearance: Alert. Oriented X3. No acute distress. Eyes: Pupils equal, round and reactive to light. ENT: Pharynx normal. Neck: Normal inspection. Neck supple. CVS: Normal heart rate and rhythm. Pulses normal. Respiratory: No respiratory distress. Breath sounds no wheezes and not diminished. Abdomen: Soft and nontender. Skin: Skin warm and dry. Normal skin color. Normal skin turgor. Extremities: No lower extremity edema. No calf ttp Neuro: Oriented X 3. No motor deficit. No sensory deficit. CN2-12 intact Course Course Course Narrative: 64-year-old female with past medical history of bronchitis, pneumonia, COPD not on home oxygen, hypertension, hyperlipidemia, hypothyroidism, CAD, she is nonsmoker she was recently treated at [facility] from February 11 to they did discharge her on a Z-Luis Eduardo and a short course of prednisone which she has completed. She would is admitted for similar symptoms and diagnosis COPD exacerbation. She states since she has been home she has not improved her nose was a running, but now it is stopped up, she still has a cough with yellow sputum production, she has no chest pain and no leg swelling. She has been taking all her medications and her inhalers as prescribed. At this time I am going to obtain inflammatory markers, chest x-ray, viral panel this is a RAPID medical screening exam the rest of the history and physical exam is to be done by the main provider. 12:02 PM 02/26/2025 (JOEL SALVADOR): Reevaluation(s) Reevaluation #1: 3:28 PM 02/26/2025 (JOEL SALVADOR): She is 97% on neb therapy we will continue to monitor she did ask for IV fluids but clinically she has moist mucous membranes and she has no signs of dehydration on labs her BUN and creatinine are at baseline 3:53 PM 02/26/2025 (JOEL SALVADOR): Patient is still doing well have her room air sats are 97% I am signing her out for observation for 1 more hour if at 16:45 she is still not hypoxic I would discharge home with supportive care, Gabrielle BREWSTER will take over rechecking her O2 levels Reevaluation #2: 5:24 PM 02/26/2025 (Gabrielle Birmingham PA-C): I was given sign out from my colleague, Dr. Shultz pending repeat oxygen saturation. When I went and assess patient in the room, she was O2 satting at 91% and tachycardic at 110. I discussed at length that given her oxygen saturation at rest is 91 percent, I would like to walk her, walking oxygen saturation 85 % and pt tachy at 110. Patient reports that she is feeling unwell, does not feel comfortable with discharge home, given hypoxia, patient should be admitted for further management. Medications Administered Generic Name Dose Route Start Last Admin Trade Name Bessy PRN Reason Stop Dose Admin Albuterol/Ipratropium 3 ml 02/26/25 20:00 02/27/25 08:13 Albuterol/Iprat 2.5/0.5mg 3 Ml Ampul.Neb INHALE 3 ml RQ4H WHILE AWAKE RAKEL Administration Enoxaparin Sodium 40 mg 02/26/25 21:00 02/26/25 21:28 Enoxaparin Sodium 40 Mg/0.4 Ml Syringe SUBCUT 40 mg Q24H RAKEL Administration Methylprednisolone Sodium Succinate 40 mg 02/26/25 21:00 02/27/25 09:50 Methylprednisolone Sod Succ 40 Mg/Ml Vial IVPUSH 40 mg BID RAKEL Administration Nicotine 21 mg 02/27/25 09:00 02/27/25 09:51 Nicotine 21 Mg Patch.Td24 TRANSDERMA 21 mg DAILY RAKEL Administration Oseltamivir Phosphate 75 mg 02/27/25 09:00 02/27/25 09:51 Oseltamivir Phosphate 75 Mg Capsule PO 03/03/25 21:01 75 mg BID RAKEL Administration Sodium Chloride 3 ml 02/27/25 00:00 02/27/25 09:52 0.9 % Sodium Chloride Flush 3 Ml Syringe IVFLUSH 3 ml QSHIFT RAKEL Administration Discontinued Medications Generic Name Dose Route Start Last Admin Trade Name Bessy PRN Reason Stop Dose Admin Albuterol Sulfate 5 mg/ 7.5 mg 02/26/25 17:59 02/26/25 18:10 Albuterol Sulfate 2.5 mg INHALE 02/26/25 18:00 7.5 mg ONCE ONE Administration Azithromycin 500 mg 02/26/25 20:15 02/26/25 21:24 Azithromycin 500 Mg Tablet PO 02/26/25 20:16 500 mg ONCE ONE Administration Albuterol Sulfate 2.5 mg/ 0 mg 02/26/25 15:17 02/26/25 15:21 Albuterol/Ipratropium 3 ml INHALE 02/26/25 15:18 5 dose ONCE ONE Administration Magnesium Sulfate 2 gm in 50 mls @ 150 mls/hr 02/26/25 17:54 02/26/25 19:36 Magnesium Sulfate/H2o IV 02/26/25 18:13 Infused ONCE ONE Infusion Sodium Chloride 1,000 mls @ 999 mls/hr 02/26/25 17:56 02/26/25 19:36 Ns IV 02/26/25 18:56 Infused .Q1H1M ONE Infusion Acetaminophen 1,000 mg in 100 mls @ 400 mls/hr 02/26/25 17:56 02/26/25 19:36 Ofirmev IV 02/26/25 18:10 Infused ONCE ONE Infusion Iohexol 100 ml 02/26/25 18:55 02/26/25 18:56 Iohexol 350 Mg/Ml 100 Ml Infus..Btl IV 02/26/25 18:56 65 ml ONCE ONE Administration Oseltamivir Phosphate 75 mg 02/26/25 15:03 02/26/25 16:43 Oseltamivir Phosphate 75 Mg Capsule PO 02/26/25 15:04 75 mg ONCE ONE Administration Prednisone 60 mg 02/26/25 15:53 02/26/25 16:43 Prednisone 20 Mg Tablet PO 02/26/25 15:54 60 mg ONCE ONE Administration Medical Decision Making Medical Decision Making [facility] Narrative: 64-year-old female with past medical history of bronchitis, pneumonia, COPD not on home oxygen, hypertension, hyperlipidemia, hypothyroidism, CAD, she is nonsmoker who now has recurrence of URI symptoms and runny nose now with congestion. SHe has no chest pain, no signs of edema. She is not hypoxic or labored. I am going to obtain labs, CXR, viral panel. Suspect URI. Differential Diagnosis Differential Diagnoses: The differential diagnosis associated with the presentation includes bronchitis, viral syndrome, URI, pneumonia, COPD Admission/Observation Consideration of admission/observation: Escalation of care including admission/observation considered on repeat assessment she is more labored and her O 2 sat is 88-90%. Her normal is 96%. At this time will dose with neb therapy, steroid, tamiflu will repeat her O2 level Lab Data [facility] Lab Attestation statement: I reviewed the patient's lab results. 02/27/25 04:04 02/27/25 04:04 Labs: Lab Results 02/26/25 Range/Units 12: WBC 7.7 (4.8-10.8) X10*3/uL RBC 3.96 L (4.20-5.50) X10*6/uL Hgb 12.7 (12.0-16.0) g/dl Hct 38.2 (37.0-47.0) % MCV 96.5 (80.0-98.0) fL MCH 32.1 (27.0-33.0) pg MCHC 33.2 (31.0-35.0) g/dl RDW 12.9 (11.0-16.0) % Plt Count 233 (160-400) X10*3/uL MPV 8.8 L (9.4-12.3) fL Immature Gran % (Auto) 0.5 H (0.0-0.4) % Neut % (Auto) 80.4 H (45-73) % Lymph % (Auto) 5.8 L (20-40) % [place] % (Auto) 9.6 (2-11) % Eos % (Auto) 3.4 (0-4) % Baso % (Auto) 0.3 (0-2) % Lymph # (Auto) 0.5 L (1.2-4.9) X10*3/uL [place] # (Auto) 0.7 (0.1-1.2) X10*3/uL Eos # (Auto) 0.3 (0.0-0.4) X10*3/uL Baso # (Auto) 0.0 (0.0-0.2) X10*3/uL Abs Immat Gran (auto) 0.04 H (0.00-0.03) X10*3/uL Absolute Neuts (auto) 6.2 (2.0-8.3) x10*3/uL Absolute Nucleated RBC 0.000 (0.0-0.012) X10*3/uL Nucleated RBC % (auto) 0.0 (0.0-0.2) /100WBC Sodium 142 (135-145) mmol/L Potassium 4.0 (3.3-5.1) mmol/L Chloride 108 (96-108) mmol/L Carbon Dioxide 26 (22-29) mmol/L Anion Gap 12 (12-20) BUN 19 H (9-16) mg/dL Creatinine 1.06 (0.5-1.4) mg/dL Estim Creat Clear Calc 40.8 Estimated GFR 52 Random Glucose 94 (60-115) mg/dL Calcium 8.6 (8.4-10.2) mg/dL Magnesium 1.9 (1.6-2.6) mg/dL Total Bilirubin 0.5 (0.0-1.0) mg/dL Direct Bilirubin 0.2 (0.0-0.5) mg/dL AST 45 H (5-31) U/L ALT 49 H (0-31) U/L Alkaline Phosphatase 93 (39-117) U/L Troponin I High Sens < 2.7 (<3.5-17.0) ng/L C-Reactive Protein 1.00 H (< or = 0.50) mg/dL NT-Pro-B Natriuret Pep 217.4 (<300) pg/mL Total Protein 6.4 L (6.5-8.0) g/dL Albumin 3.8 (3.5-5.0) g/dL Influenza Type A (PCR) POSITIVE A (Negative) Influenza Type B (PCR) NEGATIVE (Negative) RSV RNA Qual (PCR) NEGATIVE (Negative) SARS-CoV-2 RNA (RT-PCR) NEGATIVE (Negative) Independent Interpretation I performed an independent interpretation of an: EKG and Plain X-Ray (normal ) Interpretation: Rate: 97 Rhythm: NSR Zeigler: normal Normal P waves. Normal EDILIA. Normal QRS complex. ST T wave : no ALISSON qTC: 441 prior studies: no acute ischemia The study has been interpreted contemporaneously by me. . Radiology Impression Discussion of test interpretation with radiology: I have reviewed the radiologist's reading. External Record Review External record reviewed: Outpatient record Prescription Management I considered prescription management with: Antibiotic and Other Discharge Plan Discharge Clinical Impression: Influenza, Hypoxia COPD (chronic obstructive pulmonary disease) Qualifiers: COPD type: COPD with acute exacerbation Qualified Code(s): J44.1 - Chronic obstructive pulmonary disease with (acute) exacerbation Patient Disposition: Admitted As Inpatient
--- NOTE | 2025-02-26 12:00 | ECG_ITS ---
Test Reason : sob Blood Pressure : */* mmHG Vent. Rate : 97 BPM Atrial Rate : 97 BPM P-R Int : 126 ms QRS Dur : 90 ms QT Int : 348 ms P-R-T Axes : 35 14 -12 degrees QTcB Int : 441 ms Normal sinus rhythm Normal ECG When compared with ECG of 11-Oct-2006 20:36, Nonspecific T wave abnormality, worse in Inferior leads Referred By: Marta Shultz Electronically Signed By: Vince Hua
[2025-02-26 12:23] LABS: MANUAL DIFF FLAG NO
[2025-02-26 12:25] LABS: Hematocrit 38.2 % (37.0-47.0); Hemoglobin 12.7 g/dl (12.0-16.0); Imm Gran Abs Auto 0.04 X10*3/uL (0.00-0.03); Imm Gran Pct Auto 0.5 % (0.0-0.4); Lymphocytes Absolute Auto 0.5 X10*3/uL (1.2-4.9); Mean Corpuscular HGB Conc 33.2 g/dl (31.0-35.0); Mean Corpuscular Hemoglobin 32.1 pg (27.0-33.0); Mean Corpuscular Volume 96.5 fL (80.0-98.0); NRBC Abs Auto 0.000 X10*3/uL (0.0-0.012); NRBC Pct Auto 0.0 /100WBC (0.0-0.2); Platelet Count 233 X10*3/uL (160-400); Red Blood Count 3.96 X10*6/uL (4.20-5.50); White Blood Count 7.7 X10*3/uL (4.8-10.8)
[2025-02-26 12:47] LABS: Alanine Aminotransferase 49 U/L (0-31); Albumin Level 3.8 g/dL (3.5-5.0); Alkaline Phosphatase 93 U/L (39-117); Anion Gap 12 (12-20); Aspartate Amino Transferase 45 U/L (5-31); Blood Urea Nitrogen 19 mg/dL (9-16); Calcium 8.6 mg/dL (8.4-10.2); Carbon Dioxide 26 mmol/L (22-29); Chloride 108 mmol/L (96-108); Creatinine Clr Calc Pharmacy 40.8; Estimated Glomerular Filt Rate 52; Magnesium 1.9 mg/dL (1.6-2.6); Potassium 4.0 mmol/L (3.3-5.1); Sodium 142 mmol/L (135-145); Total Protein 6.4 g/dL (6.5-8.0)
[2025-02-26 12:57] LABS: Troponin-I High Sensitivity < 2.7 ng/L (<3.5-17.0)
[2025-02-26 12:59] LABS: Resp Syncy Virus RNA Qual PCR NEGATIVE (Negative); SARS COV2 PCR INHOUSE NEGATIVE (Negative)
[2025-02-26 13:07] LABS: NT Pro B Type Natriuretic Pept 217.4 pg/mL (<300)
[2025-02-26] MEDS: Albuterol Sulfate 2.5 MG, Albuterol/Iprat 2.5/0.5MG 3 ML 3 ML INHALE (15:21)
[2025-02-26] MEDS: Magnesium Sulfate/H2O 2 GM/50 ML PIGGYBACK IV (18:09)
[2025-02-26] MEDS: Albuterol Sulfate 5 MG, Albuterol Sulfate (0.083%) 2.5 MG 7.5 MG INHALE (18:10)
--- NOTE | 2025-02-26 18:44 | P.HPHOSP_ITS ---
History of Present Illness Date of Service: 02/26/25 Chief Complaint: Influenza A with acute hypoxic respiratory failure 64-year-old female with a history of COPD (not on home O2), coronary artery disease, hypertension, hyperlipidemia, hypothyroidism (s/p thyroidectomy), and prior NM, who presents with a two-day history of progressively worsening productive cough (initially clear, now yellow), wheezing, rhinorrhea, and exertional shortness of breath. She denies chest discomfort, fever, or chills. Notably, she was recently hospitalized at [facility] (02/11?02/15) for a COPD exacerbation secondary to rhinovirus, with reported improvement at discharge. However, after returning to work, she developed recurrence of symptoms as above. At home, she used her nebulizer once today with mild improvement. Tobacco use: quit 2-3 years ago; uses nicotine 21 mg transdermal daily. The patient reported 2 prior COPD exacerbations in the past year, with 1 hospitalizations (02/11- 02/15). In the ED, she was found to be hypoxic (resting O2 sat 91%, ambulatory 85%), sratyzfahvi-05-229 bpm, and tachypneic-respiratory rates 22-25 breaths per min. She tested positive for influenza A. She received Duoneb x1, oseltamivir, and prednisone 60 mg, and was admitted for further management of acute hypoxic respiratory failure secondary to COPD exacerbation triggered by influenza A. Diagnostic studies Influenza a positive; CBC with a normal range except for bandemia; stable renal function; CRP 1, AST 45 (02/2024: 36), ALT 49 (02/2024: 45). CXR: No acute pulmonary pathology; ECG: no acute ischemic changes. [facility] Medical History Cough Abdominal pain NM (myocardial infarction) Tobacco dependence Hyperlipemia HTN (hypertension) Annual physical exam Hypothyroid Hematuria Anxiety COPD (chronic obstructive pulmonary disease) Hyperthyroidism Family History Father No problems noted. Mother CVD (cardiovascular disease) Surgical History Hx of appendectomy H/O tubal ligation H/O thyroidectomy Social History Housing: House Alcohol intake: never Patient Tobacco Use Status: Former Tobacco user e-Cigarette/Vaping Use: Never Used Advance Directives: Yes Advance Directives Information Provided: Yes Advance Directives on File: No service: No Current occupational status: employed Cognitive needs: No Hearing needs: No Vision needs: Yes Meds Allergies Allergy/AdvReac Type Severity Reaction Status Date / Time No Known Allergies Allergy Verified 02/26/25 12:03 Active Medications: Current Medications Acetaminophen (Acetaminophen 325 Mg Tablet) 650 mg PO Q6H PRN PRN Reason: Pain, Mild 1-3,fever,headache Albuterol/Ipratropium (Albuterol/Iprat 2.5/0.5mg 3 Ml Ampul.Neb) 3 ml INHALE RQ4H WHILE AWAKE RAKEL Albuterol/Ipratropium (Albuterol/Iprat 2.5/0.5mg 3 Ml Ampul.Neb) 3 ml INHALE Q2H PRN PRN Reason: Shortness of Breath/Wheezing Calcium Carbonate (Calcium Carbonate 750 Mg Tab.Chew) 750 mg PO Q4H PRN PRN Reason: Heartburn Sodium Chloride (Ns) 1,000 mls @ 999 mls/hr IV .Q1H1M ONE Stop: 02/26/25 18:56 Last Admin: 02/26/25 18:11 Dose: 999 mls/hr Magnesium Hydroxide (Milk Of Magnesia 30 Ml Oral.Susp) 30 ml PO DAILY PRN PRN Reason: Constipation Melatonin (Melatonin 3 Mg Tablet) 6 mg PO BEDTIME PRN PRN Reason: Insomnia Methylprednisolone Sodium Succinate (Methylprednisolone Sod Succ 40 Mg/Ml Vial) 40 mg IVPUSH BID RAKEL Oseltamivir Phosphate (Oseltamivir Phosphate 75 Mg Capsule) 75 mg PO BID RAKEL Stop: 03/03/25 21:01 Polyethylene Glycol (Polyethylene Glycol 3350 17 Gm Powd.Pack) 17 gm PO DAILY PRN PRN Reason: Constipation Sodium Chloride (0.9 % Sodium Chloride Flush 3 Ml Syringe) 3 ml IVFLUSH QSHIFT [facility] Home Medications ?Medication ?Instructions ?Recorded ?Confirmed ?Last Taken ?Type aspirin 81 mg tablet,delayed 81 mg PO DAILY 07/14/21 1 04/29/24 Unknown History release amoxicillin 875 mg-potassium 1 tab PO BID 02/26/25 Unknown History clavulanate 125 mg tablet ipratropium 0.5 mg-albuterol 3 mg 3 ml inhalation Q4H PRN wheezing 02/26/25 02/26/25 Unknown History (2.5 mg base)/3 mL nebulization soln Physical Exam 2 Vital Signs and Narrative: Vital Signs: Last Vital Signs Temp 99.8 F 02/26/25 17:59 Pulse 86 02/26/25 18:13 Resp 25 H 02/26/25 18:13 BP 146/86 H 02/26/25 17:59 Pulse Ox 89 L 02/26/25 17:59 O2 Del Method Room Air 02/26/25 17:59 BMI result Body Mass Index 26.3 General: Alert and oriented. No acute distress. Spoke in full sentences Eyes: ADIS Neck: supple CVS: Tachycardia, no murmur Respiratory: No respiratory distress. No use of accessory muscles. Basilar rhonci (neb treatment administered prior to bedside evaluation) Abdomen: Soft and (+) BS Extremities: No lower extremity edema Results Labs 02/26/25 12:17 02/26/25 12:17 Labs: Laboratory Results - last 24 hr 02/26/25 12:17 MCV 96.5 MCH 32.1 MCHC 33.2 RDW 12.9 Plt Count 233 MPV 8.8 L Immature Gran % (Auto) 0.5 H Neut % (Auto) 80.4 H Lymph % (Auto) 5.8 L [place] % (Auto) 9.6 Eos % (Auto) 3.4 Baso % (Auto) 0.3 Lymph # (Auto) 0.5 L [place] # (Auto) 0.7 Eos # (Auto) 0.3 Baso # (Auto) 0.0 Abs Immat Gran (auto) 0.04 H Absolute Neuts (auto) 6.2 Absolute Nucleated RBC 0.000 Nucleated RBC % (auto) 0.0 Anion Gap 12 Estim Creat Clear Calc 40.8 Estimated GFR 52 Random Glucose 94 Calcium 8.6 Magnesium 1.9 Total Bilirubin 0.5 Direct Bilirubin 0.2 AST 45 H ALT 49 H Alkaline Phosphatase 93 Troponin I High Sens < 2.7 C-Reactive Protein 1.00 H NT-Pro-B Natriuret Pep 217.4 Total Protein 6.4 L Albumin 3.8 Influenza Type A (PCR) POSITIVE A Influenza Type B (PCR) NEGATIVE RSV RNA Qual (PCR) NEGATIVE SARS-CoV-2 RNA (RT-PCR) NEGATIVE Imaging Radiologist's Impressions: Impressions Chest X-Ray 02/26/25 12:22 IMPRESSION: No evidence for acute disease in the chest. Electronically signed by: Tammy Card MD 02/26/2025 12:28 PM [facility] [place] [place] Assessment and Plan (1) COPD exacerbation: Status: Acute (2) Influenza A: Status: Acute (3) Acute respiratory failure with hypoxia: Status: Acute Plan 64 year old with comorbid conditions significant for HTN, CAD, hypothyrodism, and COPD presenting with acute worsening of dyspnea, increased cough, and sputum production. admitted with acute hypoxic respiratory failure due to acute COPD exacerbation triggered by influenza A. Acute COPD exacerbation secondary to Influenza A infection with acute hypoxic respiratory failure (Hypoxemia: O2 saturation 91% at rest, 85% with ambulation on room air, tachycardia (HR 98-110), and? tachypnea (RR 22-25)) -Continue nebulized albuterol/ipratropium q 4 hrs and albuterol as needed q 2 hrs -Solumedrol 40 mg IV BID -Supplemental oxygen as needed to maintain SpO2 > 88?92%. Avoid hyperoxia. -Azithromycin 500 mg PO x1, then 250 mg PO daily x 4 days -Guaifenesin -Encourage incentive spirometry as tolerated -Adequate hydration to help mobilize secretion -Monitor and supportive Care -Continue to monitor fever curve -Nicotine 21 mg transdermal daily continued Influenza A infection -Oseltamivir 75 mg PO BID x 5 days -Supportive care Mildly increased liver enzymes -Continue monitoring and avoid medications or substances that may cause liver toxicity. LFTs ordered Comorbidities Continue home medications, pending medication reconciliation: aspirin, atorvastatin, metoprolol, levothyroxine, Anoro Ellipta Goals of care Healthcare client relations representative/proxy: Annika daughter Advance directive: Not formally completed Preference for life-sustaining treatment: Full code VTE: Lovenox Quality Stroke Does the patient have a stroke diagnosis?: No VTE Prior VTE?: No VTE Risk Level:: Medical - moderate - high VTE Device Contraindication: Treatment Not Indicated VTE Drug Contraindication: N/A - Med Ordered
[2025-02-26] MEDS: iohexoL 350 MG/ML 100 ML INFUS..BTL IV (18:56)
--- OUTSIDE RECORDS SUMMARY | 2025-02-26 19:33 | XMS_ITS | Encounter Summary ---
Author Organization [facility] Address [address] [place] [address] Care Team Providers Care Hand Tufter Name Role Phone Physician, No Pcp Primary Care Provider Unavaila ble Encounter Details Date Type Department Care Team (Late st Contact Info) Description 01/10/2025 Lab Requisition [facility] Lab [address] [facility] [place] [address] Pilar Castillo PA [address] [place], [place] [id number] Urinary tract infection, site not specified; Unspecified [...] Urine No growth 01/11/2025 1:33 PM EDT [facility] Urine Urine specimen obtained by clean catch procedure / Unknown 01/10/2025 01/10/2025 5:50 PM EDT us Pilar BREWSTER LAB MICROBIOLOGY - GENERAL ORD ERABLES Final Result [facility] [address] [place] [address], documented in this encounter Visit Diagnoses Diagnosis Urinary tract infection, site not specified Unspecified abdominal pain documented in this encounter Care Teams Hand Tufter Relationship Specialty Start Date End Date Physician, No Pcp PCP - General 08/08/24 documented as of this encounter
--- OUTSIDE RECORDS SUMMARY | 2025-02-26 19:33 | XMS_ITS | Clinical Summary ---
Author Organization [facility] Address [address] [place] [address] Phone Care Team Providers Care Hand I Thermal Cutter Name Role Phone Physician, No Pcp Primary [...] Department Care Team Description 01/10/2025 Lab Requisition [facility] - Main Lab [address] [facility] [place] [address] Pilar Castillo PA Urinary tract infection, site not specified; Unspecified abdominal pain from Last 3 Months Surgical History Surgery Date Site/Laterality Comments CORONARY STENT PLACEMENT Medical History Medical History Date Comments COPD (chronic obstructive pulmonary disease) ([facility] V24, [facility] V28) Coronary artery disease Hypertension Disease of thyroid gland HLD (hyperlipidemia) Tobacco abuse Myocardial infarction ([facility] V24, [facility] V28) Social History Tobacco Use Types Packs/Day [...] this topic Medical Devices Implanted Type Area Manager Respiratory Care Device Identifier Shelf Expiration Date Model / Serial / Lot Stent Uret [id number] Contr Percuflex Hydroplus - Sna - [id number] Implanted:Qty: 1 on 08/10/2024 by Roshan Neville MD at [facility] Stents Right: Ureter [employer] GY [id number] 04/03/2027 [id number] 60 / NA / [id number] Stent Uret [id number] Contr Percuflex Hydroplus - Sn/A - [id number] Implanted:Qty: 1 on 08/10/2024 by Roshan Neville MD at [facility] Stents Left: Ureter [employer] [id number] 04/16/2027 [id number] 60 / N/A / [id number] Procedures Procedure Name Priority Date/Time Associated Diagnosis Comments CULTURE URINE Routine 01/10/2025 12:00 AM EDT Urinary tract infection, site not specified Unspecified abdominal pain BASIC METABOLIC PANEL Routine 08/09/2024 5:14 AM EDT from Last 3 Months or Most Recently Relevant to Health Maintenance Results * Culture urine (01/10/2025 12:00 AM EDT) [facility] Culture, Urine No growth 01/11/2025 1:33 PM EDT [facility] Urine Urine specimen obtained by clean catch procedure / Unknown 01/10/2025 01/10/2025 5:50 PM EDT us Pilar BREWSTER LAB MICROBIOLOGY - GENERAL ORD ERABLES Final Result [facility] [address] [place] [address], * (ABNORMAL) Basic metabolic panel (08/09/2024 5:14 AM EDT) [facility] Sodium 140 133 - 145 mmol/L LAB CHEMISTRY METHOD 08/09/2024 7:22 AM EDT [facility] Potassium 4.5 3.5 - 5.5 mmol/L LAB CHEMISTRY METHOD 08/09/2024 7:22 AM EDT [facility] Chloride 108 96 - 110 mmol/L LAB CHEMISTRY METHOD 08/09/2024 7:22 AM EDT [facility] CO2 24 21 - 32 mmol/L LAB CHEMISTRY METHOD 08/09/2024 7:22 AM EDT [facility] Anion Gap 8 3 - 11 LAB CHEMISTRY METHOD 08/09/2024 7:22 AM EDT [facility] Glucose 98 70 - 100 mg/dL LAB CHEMISTRY METHOD 08/09/2024 7:22 AM T [facility] BUN 33(H) 5 - 25 mg/dL LAB CHEMISTRY METHOD 08/09/2024 7:22 AM [facility] Creatinine 1.26(H) 0.50 - 1.10 mg/dL LAB [facility] e[facility] 47(L) >=60 mL/min/1. 73m2 LAB CHEMISTRY METHOD 08/09/2024 7:22 AM [facility] Comment:Calculation based on the Chronic Kidney Disease Epidemiology Collaboration (CKD-EPI) equation refit without adjustment for race. BUN/Creatinine Ratio 26.2 LAB CHEMISTRY METHOD 08/09/2024 7:22 AM [facility] Calcium 8.5 8.5 - 10.5 mg/dL LAB CHEMISTRY METHOD 08/09/2024 7:22 AM [facility] Blood Venous blood specimen / Unknown Venipuncture / Unknown 08/09/2024 5:14 AM EDT 08/09/2024 6:19 AM EDT us Adiel Rosa MD LAB BLOOD ORDERABLES Final Result [facility] [address] [place] [address], from Last 3 Months or Most Recently [...] currently active code status orders. Care Teams Hand I Thermal Cutter Relationship Specialty Start Date End Date Physician, No Pcp PCP - General 08/08/24
--- NOTE | 2025-02-26 19:35 | PC.NURSE ---
Assumed care of pt , presents to the ED with cold symptomns and worsening productive coughx2 weeks, pt was recently admitted at [facility] on 02/11, PT is positive for influenza A pt is AAOX3, NAd, pending admission bed
--- NOTE | 2025-02-26 19:45 | PHA.MEDREC ---
Pharmacy Consult ? Medication Reconciliation Pharmacy has completed the medication reconciliation.
[2025-02-26] MEDS: Albuterol/Iprat 2.5/0.5MG 3 ML AMPUL.NEB INHALE (20:25)
[2025-02-27] VITALS (12 sets, daily range): BP systolic 102–156; BP diastolic 58–82; PULSE 86–123; RESP 16–22; TEMP 36.1–36.8; O2SAT 92–97; BMI 26.3
[2025-02-27 04:30] LABS: Hematocrit 32.1 % (37.0-47.0); Hemoglobin 10.8 g/dl (12.0-16.0); Imm Gran Abs Auto 0.03 X10*3/uL (0.00-0.03); Imm Gran Pct Auto 0.4 % (0.0-0.4); Lymphocytes Absolute Auto 0.3 X10*3/uL (1.2-4.9); MANUAL DIFF FLAG SCAN; Mean Corpuscular HGB Conc 33.6 g/dl (31.0-35.0); Mean Corpuscular Hemoglobin 31.9 pg (27.0-33.0); Mean Corpuscular Volume 94.7 fL (80.0-98.0); NRBC Abs Auto 0.000 X10*3/uL (0.0-0.012); NRBC Pct Auto 0.0 /100WBC (0.0-0.2); Platelet Count 208 X10*3/uL (160-400); Red Blood Count 3.39 X10*6/uL (4.20-5.50); SCAN SMEAR FLAG 1; White Blood Count 7.2 X10*3/uL (4.8-10.8)
[2025-02-27 05:40] LABS: Alanine Aminotransferase 51 U/L (0-31); Albumin Level 3.3 g/dL (3.5-5.0); Alkaline Phosphatase 77 U/L (39-117); Anion Gap 14 (12-20); Aspartate Amino Transferase 45 U/L (5-31); Blood Urea Nitrogen 22 mg/dL (9-16); Calcium 8.1 mg/dL (8.4-10.2); Carbon Dioxide 20 mmol/L (22-29); Chloride 109 mmol/L (96-108); Creatinine Clr Calc Pharmacy 46.5; Estimated Glomerular Filt Rate > 60; Potassium 3.9 mmol/L (3.3-5.1); Sodium 139 mmol/L (135-145); Total Protein 5.7 g/dL (6.5-8.0)
[2025-02-27] MEDS: Albuterol/Iprat 2.5/0.5MG 3 ML AMPUL.NEB INHALE ×4 (08:13→19:54)
[2025-02-27] MEDS: Nicotine 21 MG PATCH.TD24 TRANSDERMA (09:51)
[2025-02-27] MEDS: 0.9 % Sodium Chloride Flush 3 ML SYRINGE IVFLUSH (09:52)
--- NOTE | 2025-02-27 13:31 | HO.PM.IMPN ---
Subjective Subjective Date of Service: 02/27/25 Interval History: f/u copd exacerbation d/t influenza she's feeling better, still sob, O2 is a bit better Physical Exam Vital Signs: Vital Signs: Last Vital Signs Temp 98.3 F 02/27/25 01:51 Pulse 104 H 02/27/25 13:20 Resp 16 02/27/25 13:20 BP 137/82 02/27/25 08:00 Pulse Ox 92 02/27/25 11:57 O2 Del Method Nasal Cannula 02/27/25 11:57 BMI result Body Mass Index 26.3 Const: Other: General: AO X 3, no acute distress Resp: diminished air movement bilaterally CVS: S1,S2,RRR GI: +BS, NT, no distention Skin: No rash Neuro: motor grossly intact Psych: appropriate affect Objective Data Active Medications Acetaminophen (Acetaminophen 325 Mg Tablet) 650 mg PO Q6H PRN PRN Reason: Pain, Mild 1-3,fever,headache Albuterol/Ipratropium (Albuterol/Iprat 2.5/0.5mg 3 Ml Ampul.Neb) 3 ml INHALE RQ4H WHILE AWAKE [facility] Last Admin: 02/27/25 13:19 Dose: 3 ml Documented By: CHELSI Albuterol/Ipratropium (Albuterol/Iprat 2.5/0.5mg 3 Ml Ampul.Neb) 3 ml INHALE Q2H PRN PRN Reason: Shortness of Breath/Wheezing Azithromycin (Azithromycin 250 Mg Tablet) 250 mg PO Q24H [facility] Stop: 03/02/25 12:01 Calcium Carbonate (Calcium Carbonate 750 Mg Tab.Chew) 750 mg PO Q4H PRN PRN Reason: Heartburn Enoxaparin Sodium (Enoxaparin Sodium 40 Mg/0.4 Ml Syringe) 40 mg SUBCUT Q24H [facility] Last Admin: 02/26/25 21:28 Dose: 40 mg Documented By: KORIN Guaifenesin (Guaifenesin 200 Mg/10 Ml 10 Ml Liquid) 10 ml PO Q6H PRN PRN Reason: Cough Magnesium Hydroxide (Milk Of Magnesia 30 Ml Oral.Susp) 30 ml PO DAILY PRN PRN Reason: Constipation Melatonin (Melatonin 3 Mg Tablet) 6 mg PO BEDTIME PRN PRN Reason: Insomnia Methylprednisolone Sodium Succinate (Methylprednisolone Sod Succ 40 Mg/Ml Vial) 40 mg IVPUSH BID [facility] Last Admin: 02/27/25 09:50 Dose: 40 mg Documented By: JANESSA Nicotine (Nicotine 21 Mg Patch.Td24) 21 mg TRANSDERMA DAILY [facility] Last Admin: 02/27/25 09:51 Dose: 21 mg Documented By: JANESSA Ondansetron HCl (Ondansetron Hcl 4 Mg/2 Ml Vial) 4 mg IVPUSH Q8H PRN PRN Reason: Nausea and Vomiting Oseltamivir Phosphate (Oseltamivir Phosphate 75 Mg Capsule) 75 mg PO BID [facility] Stop: 03/03/25 21:01 Last Admin: 02/27/25 09:51 Dose: 75 mg Documented By: JANESSA Polyethylene Glycol (Polyethylene Glycol 3350 17 Gm Powd.Pack) 17 gm PO DAILY PRN PRN Reason: Constipation Sodium Chloride (0.9 % Sodium Chloride Flush 3 Ml Syringe) 3 ml IVFLUSH QSHIFT [facility] Last Admin: 02/27/25 09:52 Dose: 3 ml Documented By: JANESSA Labs 02/27/25 04:04 02/27/25 04:04 Labs: Laboratory Results - last 24 hr 02/27/25 04:04 MCV 94.7 MCH 31.9 MCHC 33.6 RDW 13.0 Plt Count 208 MPV 9.1 L Immature Gran % (Auto) 0.4 Neut % (Auto) 94.1 H Lymph % (Auto) 4.4 L Mcintosh % (Auto) 1.0 L Eos % (Auto) 0.0 Baso % (Auto) 0.1 Lymph # (Auto) 0.3 L Mcintosh # (Auto) 0.1 Eos # (Auto) 0.0 Baso # (Auto) 0.0 Abs Immat Gran (auto) 0.03 Absolute Neuts (auto) 6.8 Absolute Nucleated RBC 0.000 Nucleated RBC % (auto) 0.0 Smear Tech's Comments VERIFIED Anion Gap 14 Estim Creat Clear Calc 46.5 Estimated GFR > 60 Random Glucose 179 H Calcium 8.1 L Total Bilirubin 0.3 AST 45 H ALT 51 H Alkaline Phosphatase 77 Total Protein 5.7 L Albumin 3.3 L Assessment and Plan (1) Influenza: Status: Acute (2) Lower respiratory infection (e.g., bronchitis, pneumonia, pneumonitis, pulmonitis): Status: Acute Plan 64 year old with comorbid conditions significant for HTN, CAD, hypothyrodism, and COPD presenting with acute worsening of dyspnea, increased cough, and sputum production. admitted with acute hypoxic respiratory failure due to acute COPD exacerbation triggered by influenza A. Acute COPD exacerbation secondary to Influenza A infection with acute hypoxic respiratory failure (Hypoxemia: O2 saturation 91% at rest, 85% with ambulation on room air, tachycardia (HR 98-110), and? tachypnea (RR 22-25)) Continue nebulized albuterol/ipratropium q 4 hrs and albuterol as needed q 2 hrs Solumedrol 40 mg IV BID Supplemental oxygen as needed to maintain SpO2 > 88?92%. Avoid hyperoxia. Azithromycin 500 mg PO x1, then 250 mg PO daily x 4 days Guaifenesin for cough Incentive spirometry as tolerated Adequate hydration to help mobilize secretion Influenza A infection Oseltamivir 75 mg PO BID x 5 days Supportive care Mildly increased liver enzymes Continue monitoring and avoid medications or substances that may cause liver toxicity. LFTs ordered Comorbidities Continue home medications, pending medication reconciliation: aspirin, atorvastatin, metoprolol, levothyroxine, Anoro Ellipta Goals of care Healthcare admitting representative/proxy: Annika, daughter Advance directive: Not formally completed Preference for life-sustaining treatment: Full code VTE: Lovenox Quality Stroke Does the patient have a stroke diagnosis?: No VTE Prior VTE?: No VTE Risk Level:: Medical - moderate - high VTE Device Contraindication: Treatment Not Indicated VTE Drug Contraindication: N/A - Med Ordered
[2025-02-27] MEDS: Metoprolol Succinate ER 50 MG TAB.ER.24H PO (13:46)
[2025-02-27] MEDS: Aspirin Enteric Coated 81 MG TABLET.DR PO (13:48)
--- NOTE | 2025-02-27 14:28 | MHC.CM.PN ---
PATIENT LIVES WITH SIGNIFICANT OTHER. DAUGHTER AND FAMILY LIVE UPSTAIRS. PATIENT IS INDEPENDENT PRIOR TO ARRIVAL. 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 NO DME OR VNA. SHE STATES THAT HER DAUGHTER, BRUCE, IS HCP AND A COPY IS REQUESTED FOR HER MEDICAL CHART. SHE ANTICIPATES NO NEEDS AT DC. PATIENT HAS TRANSPORT HOME. IMM 02/27 IN CHART.
[2025-02-28 03:34] VITALS: BP 110/55; PULSE 78; RESP 16; TEMP 36.1; O2SAT 91
[2025-02-28 07:25] VITALS: BP 126/64; PULSE 79; RESP 18; TEMP 36.2; O2SAT 94
[2025-02-28 07:42] VITALS: BP 126/64; PULSE 79
[2025-02-28] MEDS: Metoprolol Succinate ER 50 MG TAB.ER.24H PO (07:42)
[2025-02-28] MEDS: Nicotine 21 MG PATCH.TD24 TRANSDERMA (07:42)
[2025-02-28] MEDS: Aspirin Enteric Coated 81 MG TABLET.DR PO (07:42)
[2025-02-28] MEDS: 0.9 % Sodium Chloride Flush 3 ML SYRINGE IVFLUSH (07:43)
[2025-02-28] MEDS: guaiFENesin 200 MG/10 ML 10 ML LIQUID PO (07:48)
[2025-02-28] MEDS: Albuterol/Iprat 2.5/0.5MG 3 ML AMPUL.NEB INHALE ×2 (08:04→11:02)
[2025-02-28] MEDS: Umeclidinium/Vilanterol 62.5/25 BLST.W.DEV 1 PUFF INHALE (08:04)
[2025-02-28 08:06] VITALS: PULSE 72; RESP 16; O2SAT 96
--- NOTE | 2025-02-28 10:49 | PM.DS ---
DS: Providers Provider Date of admission: 02/26/25 18:18 Date of discharge: 02/28/25 Primary care physician: Sharda Stevenson MD DS: Diagnosis Discharge Diagnosis (1) Influenza: Status: Acute (2) Lower respiratory infection (e.g., bronchitis, pneumonia, pneumonitis, pulmonitis): Status: Acute DS: Summary Hospital Course Hospital Course: admision hpi Chief Complaint: Influenza A with acute hypoxic respiratory failure 64-year-old female with a history of COPD (not on home O2), coronary artery disease, hypertension, hyperlipidemia, hypothyroidism (s/p thyroidectomy), and prior OH, who presents with a two-day history of progressively worsening productive cough (initially clear, now yellow), wheezing, rhinorrhea, and exertional shortness of breath. She denies chest discomfort, fever, or chills. Notably, she was recently hospitalized at [facility] (02/11?02/15) for a COPD exacerbation secondary to rhinovirus, with reported improvement at discharge. However, after returning to work, she developed recurrence of symptoms as above. At home, she used her nebulizer once today with mild improvement. Tobacco use: quit 2-3 years ago; uses nicotine 21 mg transdermal daily. The patient reported 2 prior COPD exacerbations in the past year, with 1 hospitalizations (02/11-02/15). In the ED, she was found to be hypoxic (resting O2 sat 91%, ambulatory 85%), [id number] bpm, and tachypneic-respiratory rates 22-25 breaths per min. She tested positive for influenza A. She received Duoneb x1, oseltamivir, and prednisone 60 mg, and was admitted for further management of acute hypoxic respiratory failure secondary to COPD exacerbation triggered by influenza A. Diagnostic studies Influenza a positive; CBC with a normal range except for bandemia; stable renal function; CRP 1, AST 45 (02/2024: 36), ALT 49 (02/2024: 45). CXR: No acute pulmonary pathology; ECG: no acute ischemic changes. hospital courese 64 year old with comorbid conditions significant for HTN, CAD, hypothyrodism, and COPD presenting with acute worsening of dyspnea, increased cough, and sputum production. admitted with acute hypoxic respiratory failure due to acute COPD exacerbation triggered by influenza A.Patient was addmitted and treated with IV steroid, bronchodilators by Neb, oxygen as needed, Tamiflu for raisa, initially required oxygen but has made rapid recovery and no longer on oxygen, she will be transition to oral Prednisone for 5 days of steroid, to complete Tamiflu for 5 days and empiric Azithromycin. Influenza A infection Oseltamivir 75 mg PO BID x 5 days Supportive care Mildly increased liver enzymes, could be related to influenza, outpatient follow up Time Attestation Discharge Coordination Time (in mins): 40 Quality: Safe Use of Opioids Does Pt have an Active Cancer Diagnosis on the Problem List?: No Quality: Stroke Does the patient have a stroke diagnosis?: No Physical Exam Vital Signs: Vital Signs: Last Vital Signs Temp 97.2 F 02/28/25 07:25 Pulse 72 02/28/25 08:06 Resp 16 02/28/25 08:06 BP 126/64 02/28/25 07:42 Pulse Ox 94 02/28/25 07:25 O2 Del Method Room Air 02/28/25 07:25 BMI result Body Mass Index 26.3 Discharge Plan Discharge Anticipated Discharge Date/Time: 02/28/25 10:53 Patient Disposition: Home, Self-Care Discharge Diagnosis: Influenza, COPD exacerbation Referrals: Sharda Stevenson MD [Primary Care Provider, Internal Medicine] - 1 Week Discharge Medications: New oseltamivir [Tamiflu] 75 mg capsule 75 mg PO BID 3 Days Qty: 6 0RF azithromycin 250 mg tablet 250 mg PO DAILY 3 Days Qty: 3 0RF Rx Instructions: start on day 2 of therapy prednisone 20 mg tablet 40 mg PO DAILY Qty: 6 0RF Continued amoxicillin-pot clavulanate 875-125 mg tablet 1 tab PO BID ipratropium-albuterol 0.5 mg-3 mg(2.5 mg base)/3 mL solution for nebulization 3 ml inhalation Q4H PRN (Reason: wheezing) aspirin 81 mg tablet,delayed release (DR/EC) 81 mg PO DAILY levothyroxine [Levoxyl] 75 mcg tablet 75 mcg PO DAILY Qty: 90 3RF Rx Instructions: DIANA - no substitutions Brand name medically necessary metoprolol succinate 50 mg tablet extended release 24 hr 50 mg PO DAILY Qty: 90 3RF atorvastatin 80 mg tablet 80 mg PO BEDTIME Qty: 90 3RF umeclidinium-vilanterol [Anoro Ellipta] 62.5-25 mcg/actuation blister with device 1 inh inhalation DAILY 90 Days Qty: 180 0RF albuterol sulfate 90 mcg/actuation HFA aerosol inhaler 2 puff inhalation Q4-6H PRN (Reason: shortness of breath or wheezing) Qty: 6.7 0RF Discharge Orders: Discharge Order (Routine); Ordered 02/28/25 Ordered By: Kody Booker Diet: Advance to usual diet Activity on Discharge: As tolerated Stand Alone Forms: Patient Portal Discharge page Print Language: Pakistani Activity Restrictions/Additional Instructions: Care Plan Goals: recovery from influenza and copd exacerbation Health Concerns: influenza, copd exacerbation, bronchitis Plan of Treatment: take Prednisone as directed take tamiflu for flu take azithromycin for bronchitis follow up with your doctor in a week follow up with PCP in a week return to emergency or call 911 if you have fever, chills, sob, dizziness, chest pain or other unsual symptoms Assessment: see above Patient Instructions: Influenza (ED), COPD (Chronic Obstructive Pulmonary Disease) (ED)
[2025-02-28 11:02] VITALS: PULSE 74; RESP 16; O2SAT 96
--- NOTE | 2025-02-28 11:20 | MHC.CM.PN ---
Patient has been medically cleared for dc to home today, self care.
[2025-02-28 11:53] VITALS: BP 124/66; PULSE 95; RESP 18; TEMP 36.9; O2SAT 93
== END 2025-02-28 14:58 | disposition home or self-care (01) | DRG 193 ==
LOC: HO.ED 17:43 → HO.EDOVER 18:24 → HO.IMC 02-27 16:30
PROVIDERS: Family Medicine; Admitting Provider Internal Medicine; Emergency Provider Emergency Medicine; PCP Internal Medicine; Visit Provider Internal Medicine
DX: J10.1 Influenza due to other identified influenza virus with other respiratory manifestations (principal); J96.01 Acute respiratory failure with hypoxia; J44.1 Chronic obstructive pulmonary disease with (acute) exacerbation; I25.10 Atherosclerotic heart disease of native coronary artery without angina pectoris; E89.0 Postprocedural hypothyroidism; I10 Essential (primary) hypertension; Z20.822 Contact with and (suspected) exposure to COVID-19; Z87.891 Personal history of nicotine dependence; Z79.82 Long term (current) use of aspirin; Z79.890 Hormone replacement therapy; Z79.899 Other long term (current) drug therapy
CPT/HCPCS: 36415; 71046; 71275; 80048; 80053; 80076; 83735; 83880; 84484; 85025; 86140; 87637; 93005; 94640; 99285; J0131; J1650; J2919; J3475; Q9967

== ENCOUNTER → 2025-02-26 12:00 | Outpatient (BNV) | payer MEDICARE, SELFPAY | PROVIDERS: Emergency Provider Emergency Medicine; PCP Internal Medicine; Visit Provider Internal Medicine Cardiovascular Disease | DX: R06.02 Shortness of breath (principal) | CPT/HCPCS: 93010 ==

== ENCOUNTER → 2025-02-26 12:00 | Outpatient (BNV) | payer MEDICARE, SELFPAY | PROVIDERS: PCP Internal Medicine; Visit Provider Radiology Diagnostic Radiology | DX: J43.2 Centrilobular emphysema (principal); K44.9 Diaphragmatic hernia without obstruction or gangrene | CPT/HCPCS: 71046; 71275 ==

== ENCOUNTER → 2025-02-26 18:18 | Outpatient (BNV) | payer MEDICARE, SELFPAY | PROVIDERS: Admitting Provider Internal Medicine; Emergency Provider Emergency Medicine; PCP Internal Medicine; Visit Provider Family Medicine | DX: J96.01 Acute respiratory failure with hypoxia (principal); J44.1 Chronic obstructive pulmonary disease with (acute) exacerbation; J11.1 Influenza due to unidentified influenza virus with other respiratory manifestations; J22 Unspecified acute lower respiratory infection | CPT/HCPCS: 99222; 99232 ==

== ENCOUNTER 2025-03-13 14:02 | Outpatient (AMB) | payer MEDICARE, SELFPAY ==
[2025-03-13 14:04] VITALS: BP 126/78; PULSE 86; RESP 17; TEMP 37.2; O2SAT 97; BMI 26.3
--- NOTE | 2025-03-13 14:04 | A.OFFPC_ITS ---
Vital Signs 03/13/25 14:04 Height 4 ft 11 in Weight 130 lb BMI 26.3 BP 126/78 Blood Pressure Location Lt brachial Position Sitting Respiration 17 Pulse 86 Pulse Source Pulse Oximeter Temp 98.9 F Temp Source Oral Pulse Oximetry (%) 97 Oxygen Delivery Method Room Air Intake Visit Reasons: HDF Intake Note: Pt is here today for HDF. Allergies No Known Allergies Allergy (Verified 03/13/25 14:08) Medication List - Last Reconciled 03/13/25 by Sharda Stevenson MD albuterol sulfate 90 mcg/actuation 2 puffs inhalation Q4-6H PRN Anoro Ellipta 62.5-25 mcg/actuation (umeclidinium-vilanterol) 1 inh inhalation DAILY 3 months NS aspirin 81 mg PO DAILY atorvastatin 80 mg PO BEDTIME fluticasone propionate 110 mcg/actuation 2 inhalations inhalation BID ipratropium-albuterol 0.5 mg-3 mg(2.5 mg base)/3 mL 3 mL inhalation Q4H PRN Levoxyl (levothyroxine) 75 mcg PO DAILY NS metoprolol succinate ER 50 mg PO DAILY oseltamivir (Tamiflu) 75 mg PO BID 5 days Tobacco use date assessed: 03/13/25 Dental Screening Dental Screen Date: 02/21/25 HPI HDF HPI Details Patient presents for hospital discharge follow-up. She was hospitalized from February 26 through with acute upper respiratory infection hypoxia positive for influenza A. Patient was treated with prednisone Tamiflu and Z-Luis Eduardo. She completed treatment and is feeling better. Patient is still reports intermittent cough with clear sputum but denies wheezing fever chills pleurisy. She has been using Anoro inhaler. [facility] Medical History (Updated 03/13/25 @ 15:01 by Sharda Stevenson MD) COPD (chronic obstructive pulmonary disease) Cough Abdominal pain IA (myocardial infarction) Tobacco dependence Hyperlipemia HTN (hypertension) Annual physical exam Hypothyroid Hematuria Anxiety Hyperthyroidism Surgical History Hx of appendectomy H/O tubal ligation H/O thyroidectomy Family History Father No problems noted. Mother CVD (cardiovascular disease) Social History Household Members: Significant Other and Children Housing: House Do you presently have visiting nurse or other home services: No Alcohol intake: never Patient Tobacco Use Status: Former Tobacco user e-Cigarette/Vaping Use: Never Used Advance Directives Date on File: 02/27/25 service: No Current occupational status: employed Cognitive needs: No Hearing needs: No Vision needs: Yes Questionnaire Thrive Questionnaire Date Thrive assessed: 02/21/25 I am a: Patient What is your living situation today?: I have a steady place to live Within the past 12 months, did the food you bought not last and you didn't have the money to get more?: Never true Within the past 12 months, did you worry whether your food would run out before you got money to buy more?: Never true Do you have trouble paying for medicines?: I choose not to answer this question Do you have trouble getting transportation to medical appointments?: No Do you have trouble paying your heating and electricity bill?: No Do you have trouble taking care of your child, family member or friend?: No Do you have trouble with day-to-day activities such as bathing, preparing meals, shopping, managing finances, etc.?: No Are you currently unemployed and looking for a job?: No Are you interested in more education?: No Currently or been in a relationship where the following occur: No concerns reported THRIVE Score: 0 GÓMEZ-7 AMB Questionnaire GÓMEZ-7 Date GÓMEZ - 7 assessed: 02/21/25 Source: Developed by Drs. Alen Prajapati, Shikha Gordon, Melquiades Rivers and colleagues, with an educational dhaval from [employer]. Review of Systems Const All systems reviewed & are unremarkable except as noted in HPI and below Eyes Reports no additional complaints ENT Reports no additional complaints Card Reports no additional complaints Resp Reports no additional complaints GI Reports no additional complaints Reports no additional complaints Physical exam (Primary Care) Vital Signs: Last Vital Signs Temp 98.9 F 03/13/25 14:04 Pulse 86 03/13/25 14:04 Resp 17 03/13/25 14:04 BP 126/78 03/13/25 14:04 Pulse Ox 97 03/13/25 14:04 Oxygen Delivery Method Room Air 03/13/25 14:04 BMI result Body Mass Index 26.3 Tobacco/Smoking Status: Tobacco use Status Tobacco use date assessed 03/13/25 03/13/25 14:09 Patient Tobacco Use Status Former Tobacco user 03/13/25 14:09 Tobacco use type 06/28/24 09:12 e-Cigarette/Vaping Use Never Used 03/13/25 14:09 Thrive Assessment: Date of Thrive Assessment Date Thrive assessed 02/21/25 03/13/25 14:09 Currently or been in a relationship where the following occur: No concerns reported Const General: no acute distress HENMT Head: Yes normal to inspection Throat: Yes posterior oropharynx normal Neck Neck: Yes no lymphadenopathy and Yes supple Resp Effort & Inspection: normal respiratory effort Auscultation: diminished lung sounds Cardio Rhythm: regular rhythm Heart sounds: S1 normal heart sound present and S2 normal heart sound present GI Inspection: Yes normal to inspection Palpation (GI): Soft to palpation Percussion: Yes normal to percussion Coding Level of Care Code Est Pt Level 4 (71474) Diagnoses HTN (hypertension) I10 Chronic obstructive pulmonary disease with acute exacerbation J44.1 COPD type: COPD with acute exacerbation Assessment & Plan Assessment & Plan (1) HTN (hypertension): Code(s): I10 - Essential (primary) hypertension Category: Medical Plan: Continue metoprolol (2) COPD (chronic obstructive pulmonary disease): Code(s): J44.9 - Chronic obstructive pulmonary disease, unspecified Category: Medical Qualifiers: COPD type: COPD with acute exacerbation Qualified Code(s): J44.1 - Chronic obstructive pulmonary disease with (acute) exacerbation Plan: Continue Anoro and add fluticasone inhaler 110 mcg 2 inhalation twice a day. Patient just had a prescription filled for Anoro for 3 months which was very expensive. Follow-up in 1 month Medications: New fluticasone propionate 110 mcg/actuation 2 inhalations inhalation BID 12 grams 0RF
--- OUTSIDE RECORDS SUMMARY | 2025-03-13 15:18 | XMS_ITS | Clinical Summary ---
Author Organization [facility] Address [address] [place] [address] Phone Care Team Providers Care Die Grinder Name Role Phone Physician, No Pcp Primary [...] Department Care Team Description 01/10/2025 Lab Requisition [facility] - Main Lab [address] [facility] [place] [address] Pilar Castillo PA Urinary tract infection, site not specified; Unspecified abdominal pain from Last 3 Months Surgical History Surgery Date Site/Laterality Comments CORONARY STENT PLACEMENT Medical History Medical History Date Comments COPD (chronic obstructive pulmonary disease) ([facility] V24, [facility] V28) Coronary artery disease Hypertension Disease of thyroid gland HLD (hyperlipidemia) Tobacco abuse Myocardial infarction ([facility] V24, [facility] V28) Social History Tobacco Use [...] this topic Medical Devices Implanted Type Area Classifying Machine Operator Device Identifier Shelf Expiration Date Model / Serial / Lot Stent Uret [id number] Contr [employer]lex [employer] - Sna - [id number] Implanted:Qty: 1 on 08/10/2024 by Roshan Neville MD at [facility] Stents Right: Ureter [employer]Y [id number] 04/03/2027 [id number] / NA / [id number] Stent Uret [id number] Contr [employer] - Sn/A - [id number] Implanted:Qty: 1 on 08/10/2024 by Roshan Neville MD at [facility] Stents Left: Ureter [employer] [id number] 04/16/2027 [id number] / N/A / [id number] Procedures Procedure Name Priority Date/Time Associated Diagnosis Comments CULTURE URINE Routine 01/10/2025 12:00 AM EDT Urinary tract infection, site not specified Unspecified abdominal pain BASIC METABOLIC PANEL Routine 08/09/2024 5:14 AM EDT from Last 3 Months or Most Recently Relevant to Health Maintenance Results * Culture urine (01/10/2025 12:00 AM EDT) [facility] Culture, Urine No growth 01/11/2025 1:33 PM EDT [facility] Urine Urine specimen obtained by clean catch procedure / Unknown 01/10/2025 01/10/2025 5:50 PM EDT us Pilar BREWSTER LAB MICROBIOLOGY - GENERAL ORD ERABLES Final Result [facility] [address] [place] [address], * (ABNORMAL) Basic metabolic panel (08/09/2024 5:14 AM EDT) [facility] Sodium 140 133 - 145 mmol/L LAB CHEMISTRY METHOD 08/09/2024 7:22 AM EDT [facility] Potassium 4.5 3.5 - 5.5 mmol/L LAB CHEMISTRY METHOD 08/09/2024 7:22 AM EDT [facility] Chloride 108 96 - 110 mmol/L LAB CHEMISTRY METHOD 08/09/2024 7:22 AM EDT [facility] CO2 24 21 - 32 mmol/L LAB CHEMISTRY METHOD 08/09/2024 7:22 AM EDT [facility] Anion Gap 8 3 - 11 LAB CHEMISTRY METHOD 08/09/2024 7:22 AM EDT [facility] Glucose 98 70 - 100 mg/dL LAB CHEMISTRY METHOD 08/09/2024 7:22 AM T [facility] BUN 33(H) 5 - 25 mg/dL LAB CHEMISTRY METHOD 08/09/2024 7:22 AM [facility] Creatinine 1.26(H) 0.50 - 1.10 mg/dL LAB CHEMISTRY METHOD [facility] eGFR 47(L) >=60 mL/min/1. 73m2 LAB CHEMISTRY METHOD 08/09/2024 7:22 AM [facility] Comment:Calculation based on the Chronic Kidney Disease Epidemiology Collaboration (CKD-EPI) equation refit without adjustment for race. BUN/Creatinine Ratio 26.2 LAB CHEMISTRY METHOD 08/09/2024 7:22 AM [facility] Calcium 8.5 8.5 - 10.5 mg/dL LAB CHEMISTRY METHOD 08/09/2024 7:22 AM [facility] Blood Venous blood specimen / Unknown Venipuncture / Unknown 08/09/2024 5:14 AM EDT 08/09/2024 6:19 AM EDT us Adiel Rosa MD LAB BLOOD ORDERABLES Final Result [facility] [address] [place] [address], from Last 3 Months or Most Recently [...] currently active code status orders. Care Teams Die Grinder Relationship Specialty Start Date End Date Physician, No Pcp PCP - General 08/08/24
--- OUTSIDE RECORDS SUMMARY | 2025-03-13 15:18 | XMS_ITS | Encounter Summary ---
Author Organization [facility] Address [address] [place] [address] Care Team Providers Care Cutting And Boning Supervisor Name Role Phone Physician, No Pcp Primary Care Provider Unavaila ble Encounter Details Date Type Department Care Team (Late st Contact Info) Description 01/10/2025 Lab Requisition [facility] - Main Lab [address] [facility] [place] [address] Pilar Castillo PA [address] [place], [place] [id number] Urinary tract infection, site not specified; Unspecified [...] Urine No growth 01/11/2025 1:33 PM EDT [facility] Urine Urine specimen obtained by clean catch procedure / Unknown 01/10/2025 01/10/2025 5:50 PM EDT us Pilar BREWSTER LAB MICROBIOLOGY - GENERAL ORD ERABLES Final Result [facility] [address] [place] [address], documented in this encounter Visit Diagnoses Diagnosis Urinary tract infection, site not specified Unspecified abdominal pain documented in this encounter Care Teams Cutting And Boning Supervisor Relationship Specialty Start Date End Date Physician, No Pcp PCP - General 08/08/24 documented as of this encounter
== END 2025-03-13 14:25 | disposition home or self-care (01) ==
LOC: HO.HMCC 14:03
PROVIDERS: PCP Internal Medicine; Visit Provider Internal Medicine
DX: I10 Essential (primary) hypertension (principal); J44.1 Chronic obstructive pulmonary disease with (acute) exacerbation

== ENCOUNTER → 2025-03-13 14:02 | Outpatient (BNVA) | payer MEDICARE, SELFPAY | PROVIDERS: PCP Internal Medicine; Visit Provider Internal Medicine | DX: J44.1 Chronic obstructive pulmonary disease with (acute) exacerbation (principal); I10 Essential (primary) hypertension; I25.2 Old myocardial infarction; Z87.891 Personal history of nicotine dependence; Z87.09 Personal history of other diseases of the respiratory system; Z09 Encounter for follow-up examination after completed treatment for conditions other than malignant neoplasm | CPT/HCPCS: 99212 ==